=== PATIENT | female | born 1945 | race Caucasian/White ===

== ENCOUNTER 2024-02-21 09:28 | Inpatient (IN) | payer OTHER ==
--- OUTSIDE RECORDS SUMMARY | 2024-02-21 09:31 | XMS REPORT | Continuity of Care Document ---
Author Name Unknown Address 1200 [facility] [address] th[address] Address 1200 [facility]. 1 495 [place] [address] Care Team Providers Care Historiographer Name Role Phone [phone] Attending Clinician Unavailable LUDIN PEREZ Attending Clinician Unavailable LINDA BLANCA Attending Clinician Unavailable JAKE BRICENO Attending Clinician Unavailbrenton peralta [phone] Admitting Clinician Unavailable LUDIN PEREZ Admitting Clinician Unavailable LINDA BLANCA Admitting Clinician Unavailable JAKE BRICENO Admitting Clinician UnavailGIANLUCA Watt Admitting Clinician Unavailable JOSE MARIA LINN Admitting Clinician Unavailable Payers Payer Name Policy Type Policy Number Effective Date Expirati on Date Source [facility] [id number] [facility] [id number] Problems Condition Name Condition Details Condition Category Status Onset Date Resolution Date Last Treatment Date Treating Clinician Comments Source Obesity Obesity Diagnosis Active 2019-08 00:00: [address] [facility] (LUF/LI V/SA) Malaise Malaise Diagnosis Active 2019-08 00:00: [address] [facility] (LUF/LI V/SA) Cellulitis Cellulitis Diagnosis Active 2019-08 00:00: [address] [facility] (LUF/LI V/SA) Allergies, Adverse Reactions, Alerts Allergy Name Allergy Type Status Severity Reaction(s) Onset Date Inactive Date Treating Clinician Comments Source Sulfa(Acevedo lfonamid e Antibiot ics) DA Active Unknown [facility] (LUF/LI V/SA) IV Dye, Iodine Containi ng Contrast Media DA Active Unknown [facility] (LUF/LI V/SA) Social History Smoking Status Start Date Stop Date Source Never [facility] (LUF[facility]/SA) Medications Ordered Medication Name Filled Medication Name Start Date Stop Date Current Medication? Ordering Clinician Indication Dosage Frequency Signature (SIG) Comments Components Source cefdinir 300 MG Oral Capsule cefdinir 300 MG Oral Capsule Yes 300mg 2xD [facility] (LUF/LI V/SA) doxycycline doxycycline Yes 100mg 2xD [facility] (LUF/LI V/SA) Vital Signs Vital Name Observation Time Observation Value Comments Zahira calero Height 2020-07-28 15:55:00 152.4 CM Weight 2020-07-28 15:55:00 136.07 KG Pulse Rate 2020-07-28 17:20:00 79 /min [facility] S [facility] (LUF/RAY/SA) Respiratory Rate 2020-07-28 17:20:00 22 /min [facility] (F/RAY/SA) O2% BldC Oximetry 2020-07-28 17:20:00 95 % [facility] (F/RAY/SA) BP Systolic 2020-07-28 16:16:00 117 mm[Hg] [facility] (LUF/RAY/SA) BP Diastolic 2020-07-28 16:16:00 51 mm[Hg] [facility] (F/RAY/SA) Body Temperature 2020-07-28 15:55:00 97.1 [degF] [facility] (F/RAY/SA) Height 2020-07-28 15:55:00 60 [in_i] [facility] (F/RAY/SA) Weight 2020-07-28 15:55:00 300 [lb_av] [facility] (F/RAY/SA) BMI (Body Mass Index) 2020-07-28 15:55:00 58.8 kg/m2 [facility] (F/RAY/SA) Weight Measured 2017-11-21 11:53:00 375 lbs [facility] (F/RAY/SA) Body Temperature 2017-11-21 11:53:00 98.2 F [facility] (F/RAY/SA) Respiratory Rate 2017-11-21 11:53:00 26 /min [facility] (F/RAY/SA) O2% BldC Oximetry 2017-11-21 11:53:00 97 % [facility] (LUF/RAY/SA) BP Systolic 2017-11-21 11:53:00 120 mm[Hg] [facility] (LUF/RAY/SA) BP Diastolic 2017-11-21 11:53:00 81 mm[Hg] [facility] (LUF/RAY/SA) Weight Measured 2017-10-20 17:37:00 326.28 lbs [facility] (LUF/RAY/SA) Body Temperature 2017-10-20 17:35:00 98.9 F [facility] (LUF/RAY/SA) Respiratory Rate 2017-10-20 17:35:00 20 /min [facility] (LUF/RAY/SA) O2% BldC Oximetry 2017-10-20 17:35:00 98 % [facility] (LUF/RAY/SA) BP Systolic 2017-10-20 17:35:00 119 mm[Hg] [facility] (LUF/RAY/SA) BP Diastolic 2017-10-20 17:35:00 49 mm[Hg] [facility] (LUF/RAY/SA) Height 2017-10-20 17:35:00 63 in [facility] (LUF/RAY/SA) BMI (Body Mass Index) 2017-10-20 17:35:00 57.8 [facility] (LUF/RAY/SA) Encounters Start Date/Time End Date/Time Encounter Type Admission Type Attending [facility] Care Department Encounter ID Source 2021-09-03 11:17:09 Outpatient 3 [id number] [facility] [id number] [facility] [place] 2021-09-03 11:13:00 Outpatient 3 [id number] [facility] REF [id number] [facility] [place] 2020-07-28 15:47:00 2020-07-28 19:22:00 CELLULITIS OF RIGHT LOWER LIMB E LUDIN PEREZ [facility] N, [address], [facility] [place] [address] [facility] [id number] [facility] 2020-07-28 00:00:00 2020-07-28 00:00:00 Inpatient [facility] [place], [address], [place] [address] [facility] [id number] [facility] (LUF/LI V/SA) 2020-07-28 00:00:00 2020-07-28 00:00:00 Inpatient [facility] [place], [address], [place] [address] [facility] [id number] [facility] (LUF/LI V/SA) 2018-02-28 10:36:00 2018-02-28 23:59:00 ENC THERAPEUTC DRUG LEVL MONITORING O LINDA BLANCA [facility], [address] [place] [address] [facility] [id number] [facility] (LUF/LI V/SA) 2018-02-22 15:25:00 2018-02-22 23:59:00 ENC THERAPEUTC DRUG LEVL MONITORING O LINDA BLANCA [facility], [address] [place] [address] [facility] [id number] [facility] (LUF/LI V/SA) 2018-02-16 12:33:00 2018-02-16 23:59:00 ENC THERAPEUTC DRUG LEVL MONITORING O LINDA BLANCA [facility], [address] [place] [address] [facility] [id number] [facility] (LUF/LI V/SA) 2017-12-16 13:59:00 2017-12-16 23:59:00 PERS HX OTH VENOUS THROMBOSIS &EMBO O JAKE BRICENO [facility], [address] [facility] [place] [address] [facility] [id number] [facility] (LUF/LI V/SA) 2017-12-02 14:16:00 2017-12-02 23:59:00 ENC THERAPEUTC DRUG LEVL MONITORING O JAKE BRICENO [facility], [address] [place] [address] [facility] [id number] [facility] (LUF/LI V/SA) 2017-11-21 11:42:00 2017-11-21 14:50:00 COPD UNSPECIFIE D E GIANLUCA LACEY [facility], [address] [facility] [place] [place] [address] [facility] [id number] [facility] (LUF/LI V/SA) 2017-10-20 17:27:00 2017-10-20 23:00:00 SPRAIN UNS LIGAMENT LT ANKLE INIT E JOSE MARIA LINN [facility], [address] [facility] [place] [address] [facility] [id number] [facility] (LUF/LI V/SA) Results Test Description Test Time Test Comments Results Result Co mments [facility] CEPHEID [id number] 17:52:00* Test Item Value Reference Range Interpretation Comme nts FT (test code = COVID) Negative (qualifier value) The FIA Formula Eed SARS-CoV -2 reagent is for in vitro use under FDA Emergency Use Authorization only. For questions regarding your test results, please contact the Coronavirus Call Center at [phone]. IN-HOUSE TESTINGSouthwest Health CenterXR CHEST AP/PA 1 VIEW 2020-07-28 17:50:44 [facility] (LUF/RAY/SA)Name: SARAVANAN LAN : [id number] Sex: FEXAM: XR CHEST AP/PA 1 VIEWINDICATION: [id number]: DyspneaCOMPARISON: NoneFINDINGS:One frontal imageobtained.MEDICAL DEVICES: NoneLUNGS: Changes of mild pulmonary vascular congestion seen. No evidence ofpulmonary edema seen.PLEURA: No effusions or pneumothorax.HEART AND MEDIASTINUM: Moderate cardiomegaly is noted, partially from technique.BONES AND SOFT TISSUES: Intact. No focal osseous lesions.UPPER ABDOMEN: No free air.IMPRESSION:Moderate cardiomegaly is noted, partially from technique. Mild changes of mildpulmonary vascular congestion.This final report was electronically signed by Christo Borrero 07/28/2020 5:44 PMDictated By: CHRISTO BORRERODate: 07/28/2020 17:44[facility] [id number] 17:19:00* Test Item Value Reference Range Interpretation Comme nts Glucose (test code = GLU) 106 mg/dl 75-110 BUN (test code = BUN) 15.0 mg/dl 6.0-17.0 Creatinine (test code = CREA) 0.8 mg/dl 0.4-1.2 Sodium (test code = NA) 141 mmol/l 137-145 Potassium (test code = K) 3.8 mmol/l 3.5-5.0 Chloride (test code = CL) 108 mmol/l 98-107 H CO2 (test code = CO2) 29 mmol/l 22-30 Calcium (test code = CALC) 8.7 mg/dl 8.4-10.2 T Protein (test code = TP) 6.9 gm/dl 5.1-8.7 Albumin (test code = ALB) 3.1 gm/dl 3.5-4.6 L A/G Ratio (test code = AGRAT) 0.8 % 1.1-2.2 L AST (SGOT) (test code = AST) 26 U/L 11-36 ALT (SGPT) (test code = ALT) 23 U/L 11-40 Alkaline Phos (test code = ALKP) 152 U/L 47-114 H Total Bilirubin (test code = TBIL) 0.8 mg/dl 0.2-1.2 Globulin (test code = GLOBU) 3.8 gm/dl 2.3-3.5 H Calcium, Corrected (test code = CALCCORR) 9.4 mg/dl 8.4-10.2 Various formulas exist for corrected serum calcium results, each yielding different values. This corrected result was based on the formula: Corrected Calcium = SerumCalcium + [0.8 * ( 4 - SerumAlbumin)] EGFR if (test code = EGFRAA) >60 mL/min/1.73m\\ S\\2 EGFR if Non- (test code = EGFRNA) >60 mL/min/1.73m\\ S\\2 Estimated Glomerular Filtration Rate (eGFR) Reference Intervals Decision Points for 18 years and older and average body mass: >= 60 Does not exclude kidney disease. 30 - 59 Suggests moderate chronic kidney disease and indicates the need for further investigation including assessment of proteinuria and cardiovascular factors. < 30 Usually indicates a need for referral for assessment and management of chronic kidney failure. [facility] CenterTROPONIN-I [id number] 17:15:00* Test Item Value Reference Range Interpretation Comme nts Troponin-I (test code = TROP) <0.015 ng/ml 0.000-0.034 N The 99th Percent ile URL is 0.045 ng/mL for the Siemens [place] Troponin I. The Joint Society of Cardiology/[place] [employer] of [employer] (ESC/ACC) and the National Academy of Clinical Biochemistry Standards of Laboratory Practices (NACB) recommends that the diagnosis of AMI includes the presence of clinical history suggestive of Acute Coronary Syndrome (ACS) and a maximum concentration of cardiac troponin exceeding the 99th percentile of a normal reference population [upper reference limit (URL)] on at least one occasion during the first 24 hours after the clinical event. [facility] CenterPRO-BNP(B-Type Natriuretic Peptide)2020-07-28 17:15:00* Test Item Value Reference Range Interpretation Comme nts Pro-BNP(B-Peptide) (test cod e = PROBNP) 706 pg/ml 0-125 H [facility] WITH AUTO [id number] 16:58:00* Test Item Value Reference Range Interpretation Comme nts WBC (test code = WBC) 6.12 10\\S\\3/ul 4.80-10.80 RBC (test code = RBC) 4.27 10\\S\\6/ul 4.20-5.40 Hemoglobin (test code = HGB) 13.1 gm/dl 12.0-14.0 Hematocrit (test code = HCT) 41.0 % 37.0-47.0 MCV (test code = MCV) 96.0 fL 81.0-99.0 MCH (test code = MCH) 30.7 pg 27.0-31.0 MCHC (test code = MCHC) 32.0 gm/dl 33.0-37.0 L RDW (test code = RDWVC) 15.1 % 11.5-14.5 H Platelet (test code = PLT) 218 10\\S\\3/ul 130-400 MPV (test code = MPV) 9.8 fL 7.4-10.4 A NE% (test code = NE) 55.2 % 42.0-75.0 LY% (test code = LY) 31.5 % 13.0-42.0 MO% (test code = MO) 7.7 % 4.0-14.0 EO% (test code = EO) 5.1 % 1.0-5.0 H BA% (test code = BA) 0.3 % 0.0-3.0 IG% (test code = IG%) 0.2 % 0.0-0.4 [facility] AND [id number] 12:17:00* Test Item Value Reference Range Interpretation Comme nts Protime (test code = PT) 12.0 seconds 9.0-11.9 H INR (test code = INR) 1.2 0.9-1.1 H INR results are intended ONLY to monitor Oral Anticoagulant therapy in stablized patients. The INR Therapeutic Range is 2.0 - 3.0 Patients with a mechanical heart, the INR Range is 2.5 - 3.5 [facility] AND [id number] 15:53:00* Test Item Value Reference Range Interpretation Comme nts Protime (test code = PT) 32.3 seconds 9.0-11.9 H INR (test code = INR) 3.1 0.9-1.1 H INR results are intended ONLY to monitor Oral Anticoagulant therapy in stablized patients. The INR Therapeutic Range is 2.0 - 3.0 Patients with a mechanical heart, the INR Range is 2.5 - 3.5 [facility] AND [id number] 15:02:00* Test Item Value Reference Range Interpretation Comme nts Protime (test code = PT) 50.1 seconds 9.0-11.9 HH INR (test code = INR) 4.9 0.9-1.1 HH INR results are intended ONLY to monitor Oral Anticoagulant therapy in stablized patients. The INR Therapeutic Range is 2.0 - 3.0 Patients with a mechanical heart, the INR Range is 2.5 - 3.5 Critical values were called to [facility] by [id number] on 02/16/2018 15:02 PM. Results were read back by [facility]. [facility] AND [id number] 15:35:00* Test Item Value Reference Range Interpretation Comme nts Protime (test code = PT) 14.0 seconds 9.0-11.9 H INR (test code = INR) 1.4 0.9-1.1 H INR results are intended ONLY to monitor Oral Anticoagulant therapy in stablized patients. The INR Therapeutic Range is 2.0 - 3.0 Patients with a mechanical heart, the INR Range is 2.5 - 3.5 [facility] AND [id number] 16:08:00* Test Item Value Reference Range Interpretation Comme nts Protime (test code = PT) 19.8 seconds 9.0-11.9 H INR (test code = INR) 1.9 0.9-1.1 H INR results are intended ONLY to monitor Oral Anticoagulant therapy in stablized patients. The INR Therapeutic Range is 2.0 - 3.0 Patients with a mechanical heart, the INR Range is 2.5 - 3.5 [facility] CenterPTT2018-04-16 14:31:00* Test Item Value Reference Range Interpretation Comme nts aPTT (test code = PTT) 30.5 seconds 23.0-33.0 [address]LufkinPT AND [id number] 14:31:00* Test Item Value Reference Range Interpretation Comme nts Protime (test code = PT) 14.8 seconds 9.0-11.9 H INR (test code = INR) 1.4 0.9-1.1 H INR results are intended ONLY to monitor Oral Anticoagulant therapy in stablized patients. The INR Therapeutic Range is 2.0 - 3.0 Patients with a mechanical heart, the INR Range is 2.5 - 3.[address]-[id number] 12:53:00* Test Item Value Reference Range Interpretation Comme nts Glucose (test code = GLU) 124 mg/dl 75-110 H BUN (test code = BUN) 13.0 mg/dl 6.0-17.0 Creatinine (test code = CREA) 0.8 mg/dl 0.4-1.2 Sodium (test code = NA) 143 mmol/l 137-145 Potassium (test code = K) 3.9 mmol/l 3.5-5.0 Chloride (test code = CL) 100 mmol/l 98-107 CO2 (test code = CO2) 37 mmol/l 22-30 H Calcium (test code = CALC) 9.3 mg/dl 8.4-10.2 T Protein (test code = TP) 7.2 gm/dl 5.1-8.7 Albumin (test code = ALB) 3.9 gm/dl 3.5-4.6 A/G Ratio (test code = AGRAT) 1.2 % 1.1-2.2 AST (SGOT) (test code = AST) 26 U/L 11-36 ALT (SGPT) (test code = ALT) 28 U/L 11-40 Alkaline Phos (test code = ALKP) 99 U/L 47-114 Total Bilirubin (test code = TBIL) 0.9 mg/dl 0.2-1.2 Globulin (test code = GLOBU) 3.3 gm/dl 2.3-3.5 Calcium, Corrected (test code = CALCCORR) 9.4 mg/dl 8.4-10.2 Various formulas exist for corrected serum calcium results, each yielding different values. This corrected result was based on the formula: Corrected Calcium = SerumCalcium + [0.8 * ( 4 - SerumAlbumin)] EGFR if (test code = EGFRAA) >60 mL/min/1.73m\\ S\\2 EGFR if Non- (test code = EGFRNA) >60 mL/min/1.73m\\ S\\2 Estimated Glomerular Filtration Rate (eGFR) Reference Intervals Decision Points for 18 years and older and average body mass: >= 60 Does not exclude kidney disease. 30 - 59 Suggests moderate chronic kidney disease and indicates the need for further investigation including assessment of proteinuria and cardiovascular factors. < 30 Usually indicates a need for referral for assessment and management of chronic kidney failure. er [address] [place] [address]-LufkinXR CHEST AP/PA 1 [id number] 12:42:32er 18 Procedure: AP View ChestOrder date: 11/21/2017 12:03 PMOrdering Provider: PRINCESS Drummondinical Indication: sob, Shortness of breathComparison: CT of the chest on October 20, 2017Findings:Cardiomegaly.Streaky perihilar densities suggestive of mild volume overload/central vascularcongestion. No large pleural effusions or pneumothorax. Osseous structures arenonacute.No evidence of active tuberculosis.Impression:Cardiomegaly with mild volume overload/CHF.This final report was electronically signed by Dr Enriqueta Nicholas MD 11/21/201712:36 PMDictated By: ENRIQUETA NICHOLASDate: 11/21/2017 12:42[facility] WITH AUTO [id number] 12:24:00* Test Item Value Reference Range Interpretation Comme nts WBC (test code = WBC) 9.69 10\\S\\3/ul 4.80-10.80 RBC (test code = RBC) 3.46 10\\S\\6/ul 4.20-5.40 L Hemoglobin (test code = HGB) 10.4 gm/dl 12.0-14.0 L Hematocrit (test code = HCT) 34.5 % 37.0-47.0 L MCV (test code = MCV) 99.7 fL 81.0-99.0 H MCH (test code = MCH) 30.1 pg 27.0-31.0 MCHC (test code = MCHC) 30.1 gm/dl 33.0-37.0 L RDW (test code = RDWVC) 15.4 % 11.5-14.5 H Platelet (test code = PLT) 245 10\\S\\3/ul 130-400 MPV (test code = MPV) 9.2 fL 7.4-10.4 A "NOT MEASURED" RESULTS ARE DISPLAYED WHEN THE INSTRUMENT HAS A SUPPRESSED OR UNREPORTABLE RESULT. THIS WILL MOST OFTEN HAPPEN WITH THE MPV WHEN THERE IS AN ABNORMAL PLATELET DISTRIBUTION DUE TO A CRITICAL LOW VALUE OR PLATELET CLUMPING. THE RDW MAY BE SUPPRESSED IF THERE ARE MULTIPLE PEAKS PRESENT ON THE RBC HISTOGRAM. IN THIS CASE, A MANUAL REVIEW OF THE SLIDE WILL BE PERFORMED, AND RBC MORPHOLOGY WILL BE NOTED ON THE REPORT. NE% (test code = NE) 74.9 % 42.0-75.0 LY% (test code = LY) 14.1 % 13.0-42.0 MO% (test code = MO) 8.8 % 4.0-14.0 EO% (test code = EO) 1.3 % 1.0-3.0 BA% (test code = BA) 0.4 % 1.0-3.0 L IG% (test code = IG%) 0.5 % 0.0-0.4 H [address] [place] [address]-[facility], [id number] 06:14:00ER T2 ER T2 needs in and out cath for specimenSpecimen: Urine SpecimensCollected: 10/20/2017 21:15 Status: Final Last Updated: 10/23/2017 06:14 (1) ER T2 ER T2 needs in and out cath for specimen Culture Result (Final) (Final) >100,000 cc/mL Gram Negative Bacilli Isolate (Final) (Final) Escherichia coli Amoxicillin/clavu <=2 S Ampicillin<=2 S Aztreonam <=1 S Cefazolin <=4 S Cefepime <=1 S Ceftriaxone <=1 S Ciprofloxacin <=0.25 S Gentamicin <=1 S Imipenem <=0.25 S Levofloxacin 1 S Meropenem <=0.25 S Nitrofurantoin <=16 S Tetracycline <=1 S Trimeth/Sulfa <=20 S ESBL Negative -[facility]-LufkinURINALYSIS WITH MICROSCOPIC 2017-10-20 22:13:00* Test Item Value Reference Range Interpretation Comme nts Color (test code = UCOLR) YELLOW Clarity (test code = UCLAR) CLEAR Glucose (test code = UGLUC) NEGATIVE NEGATIVE N Bilirubin (test code = UBILI) NEGATIVE NEGATIVE N Ketones (test code = UKET) TRACE NEGATIVE A Specific [place] (test code = USPGR) 1.025 1.005-1.030 A Blood (test code = UBLD) TRACE-INTACT NEGATIVE A PH (test code = UPH) 6.0 4.5-8.0 A Protein (test code = UPROT) NEGATIVE NEGATIVE N Urobilinogen (test code = U UROB) 0.2 >0.2 N Nitrite (test code = UNITR) POSITIVE NEGATIVE A Leukocyte Esterase (test cod e = ULEUK) TRACE NEGATIVE A WBC (test code = WBCUR) 10-20 0-5 A RBC (test code = RBCUR) 0-1 0-5 A Epithial Cells (test code = U EPI) 0-5 0-10 A Mucous (test code = UMUC) None Seen None Seen N Bacteria (test code = UBACT) 3+ None Seen,Trace A ER T2 ER T2 needs in and out cath for [facility] AND [id number] 20:16:00* Test Item Value Reference Range Interpretation Comme nts Protime (test code = PT) 15.4 seconds 9.0-11.9 H INR (test code = INR) 1.5 0.9-1.1 H INR results are intended ONLY to monitor Oral Anticoagulant therapy in stablized patients. The INR Therapeutic Range is 2.0 - 3.0 Patients with a mechanical heart, the INR Range is 2.5 - 3.5 er [address]-03-15 20:16:00* Test Item Value Reference Range Interpretation Comme nts aPTT (test code = PTT) 29.1 seconds 23.0-33.[address]-[id number] 20:07:00* Test Item Value Reference Range Interpretation Comme nts Glucose (test code = GLU) 110 mg/dl 75-110 BUN (test code = BUN) 19.0 mg/dl 6.0-17.0 H Creatinine (test code = CREA) 1.0 mg/dl 0.4-1.2 Sodium (test code = NA) 144 mmol/l 137-145 Potassium (test code = K) 4.4 mmol/l 3.5-5.0 Chloride (test code = CL) 101 mmol/l 98-107 CO2 (test code = CO2) 39 mmol/l 22-30 H Calcium (test code = CALC) 9.1 mg/dl 8.4-10.2 T Protein (test code = TP) 6.7 gm/dl 5.1-8.7 Albumin (test code = ALB) 3.6 gm/dl 3.5-4.6 A/G Ratio (test code = AGRAT) 1.2 % 1.1-2.2 AST (SGOT) (test code = AST) 26 U/L 11-36 ALT (SGPT) (test code = ALT) 29 U/L 11-40 Alkaline Phos (test code = ALKP) 110 U/L 47-114 Total Bilirubin (test code = TBIL) 0.7 mg/dl 0.2-1.2 Globulin (test code = GLOBU) 3.1 gm/dl 2.3-3.5 Calcium, Corrected (test code = CALCCORR) 9.4 mg/dl 8.4-10.2 Various formulas exist for corrected serum calcium results, each yielding different values. This corrected result was based on the formula: Corrected Calcium = SerumCalcium + [0.8 * ( 4 - SerumAlbumin)] EGFR if (test code = EGFRAA) >60 mL/min/1.73m\\ S\\2 EGFR if Non- (test code = EGFRNA) 58 mL/min/1.73m\\ S\\2 Estimated Glomerular Filtration Rate (eGFR) Reference Intervals Decision Points for 18 years and older and average body mass: >= 60 Does not exclude kidney disease. 30 - 59 Suggests moderate chronic kidney disease and indicates the need for further investigation including assessment of proteinuria and cardiovascular factors. < 30 Usually indicates a need for referral for assessment and management of chronic kidney failure. [address]-[place]kinCBC WITH AUTO [id number] 19:58:00* Test Item Value Reference Range Interpretation Comme nts WBC (test code = WBC) 7.13 10\\S\\3/ul 4.80-10.80 RBC (test code = RBC) 3.43 10\\S\\6/ul 4.20-5.40 L Hemoglobin (test code = HGB) 10.4 gm/dl 12.0-14.0 L Hematocrit (test code = HCT) 33.7 % 37.0-47.0 L MCV (test code = MCV) 98.3 fL 81.0-99.0 MCH (test code = MCH) 30.3 pg 27.0-31.0 MCHC (test code = MCHC) 30.9 gm/dl 33.0-37.0 L RDW (test code = RDWVC) 15.3 % 11.5-14.5 H Platelet (test code = PLT) 250 10\\S\\3/ul 130-400 MPV (test code = MPV) 9.1 fL 7.4-10.4 A "NOT MEASURED" RESULTS ARE DISPLAYED WHEN THE INSTRUMENT HAS A SUPPRESSED OR UNREPORTABLE RESULT. THIS WILL MOST OFTEN HAPPEN WITH THE MPV WHEN THERE IS AN ABNORMAL PLATELET DISTRIBUTION DUE TO A CRITICAL LOW VALUE OR PLATELET CLUMPING. THE RDW MAY BE SUPPRESSED IF THERE ARE MULTIPLE PEAKS PRESENT ON THE RBC HISTOGRAM. IN THIS CASE, A MANUAL REVIEW OF THE SLIDE WILL BE PERFORMED, AND RBC MORPHOLOGY WILL BE NOTED ON THE REPORT. NE% (test code = NE) 61.8 % 42.0-75.0 LY% (test code = LY) 25.4 % 13.0-42.0 MO% (test code = MO) 10.0 % 4.0-14.0 EO% (test code = EO) 2.1 % 1.0-3.0 BA% (test code = BA) 0.4 % 1.0-3.0 L IG% (test code = IG%) 0.3 % 0.0-0.[address]-[id number] 19:58:00* Test Item Value Reference Range Interpretation Comme nts CPK (test code = CPK) 70 U/L 30-[address]/PELVIS W/O [id number] 19:57:57er t-2Procedure: CT ABDOMEN/PELVIS W/O CONTRASTOrder Date: 10/20/2017 4:17 PMOrdering Provider: DR JOSE MARIA LINNClinical Indication: Fall, injury, painComparison: NoneTechnique: Using a helical scanner, sequential axial imaging of the abdomen andpelvis was obtained without the administration of oral or IV contrast. The examextended from the level of the lung bases superiorly to the level of the pubicsymphysis inferiorly. 2-D sagittal and coronal reconstructed images wereobtained. This exam was performed according to the departmentaldose- optimization program which includes automated exposure control, adjustmentof the mA and/or kV according to patient size and/or use of iterativereconstruction techniques.Findings:The lung bases are clear. No basilar consolidation or effusion.Diffuse hepatic steatosis. Hepatic contour is normal. There are no hepaticmasses. No intrahepatic ductal dilatation.The gallbladder is normal in size and density. There is no evidence ofcholelithiasis or cholecystitis by CT criteria.The spleen is normal in size and density. There are no intrinsic splenic masses.There isno evidence of a subcapsular hematoma or fluid collection.The pancreas is normal in size and density. There are no pancreaticcalcifications or masses. There is no pancreatic ductal dilatation.The adrenal glands are normal in size bilaterally.There are no adrenal masses bilaterally.The right kidney is normal in size and shape.There are no calculi, masses, or hydronephrosis.The left kidney is normal in size and shape.There are no calculi, masses, or hydronephrosis.Aorta is normal in size and diameter. There is no aneurysm.The IVC is normal in size and location.There is no lymphadenopathy in theabdomen, pelvis, or either inguinal region.Extensive soft tissue stranding in the subcutaneous tissues of the abdomen andpelvis which extends above the level of umbilicus and involves the central andright abdominal wall. This could represent subcutaneous hemorrhage orpanniculitis. There are numerous superficial venous collateral vessels in theabdominal wall.Small periumbilical abdominal wall hernia which contains a loop of small bowel.There is no intraperitoneal or retroperitoneal hematoma.No fluid collections in the abdomen or pelvis.No ascites in the abdomen or pelvis.There is no small or large bowel distention. There is no bowel thickening. Thereare no inflammatory changes in the abdomenor pelvis.The appendix is not visualized.Urinary bladder has a normal appearance.The uterus is normal in size.No inguinal masses.There is no skeletal lesion.IMPRESSION:1. Extensive subcutaneous soft tissue stranding in the anterior abdominal andpelvic wall. This involves the central and right side of the abdominal wall.This could represent subcutaneous hemorrhage or panniculitis. There is no focalhematoma or loculated fluid collection.2. No intraperitoneal or retroperitoneal hemorrhage.3. No visceral organ injury.4. Diffuse hepatic steatosis.5. Small periumbilical hernia which includes a loopof small bowel. There is nobowel obstruction.6. No displaced fracture.7. No other significant findings.This final report was electronically signed by Dr Damian Chauhan MD 10/20/20177:51 PMDictated By: DAMIAN CHAUHANDate: 10/20/2017 19:57 [facility] CHEST W/O [id number] 19:48:26er t-2Procedure: CT CHEST W/O CONTRASTOrder Date: 10/20/2017 4:16 PMOrdering Provider: DR JOSE MARIA Leyinical Indication: Fall, injury, painComparison: NoneTechnique: Using a multislice scanner, sequential axial imaging was obtained inthe thorax from the level of the thoracic inlet through the lung bases. The examwas obtained without the administration of IV contrast. 2D sagittal and coronalreconstructed images were obtained. This exam was performed according to thedepartmental dose- optimization program which includes automated exposurecontrol, adjustment of the mA and/or kV according to patient size and/or use ofiterative reconstruction techniques.FINDINGS:Cardiac size is normal.There is no pericardial effusion.Evaluation of vascular structures is limited without intravenous contrast.Thoracic aorta is of normal diameter.There is no supraclavicular or axillary lymphadenopathy.There is no mediastinal, hilar, or subcarinal lymphadenopathy.There are no pulmonary masses or nodules.There is noalveolar or interstitial infiltrate.There are no pleural effusions.No acute fracture.Multilevel degenerative disc disease in the thoracic spine.Thoracic dextroscoliosis.IMPRESSION1. No acute abnormality in the chest.This final report was electronically signed by Dr Damian Chauhan MD 10/20/20177:42 PMDictated By: DAMIAN CHAUHANDate: 10/20/2017 19:48[facility] RAPID [id number] 19:48:00* Test Item Value Reference Range Interpretation Comme nts B-PEPTIDE (BIOSITE) (test co de = BIOBNP) 95.2 pg/ml 0.0-100.0 SERIAL INSTRUMENT NUMBER (te st code = SERIAL) [id number] [facility] [id number] 19:48:00* Test Item Value Reference Range Interpretation Comme nts CKMB (BIOSITE) (test code = BIOCKMB) 2.1 ng/ml 0.0-2.5 TROPONIN-I (BIOSITE) (test c ode = BIOTROP) <0.050 ng/ml 0.000-0.050 N MYOGLOBIN (BIOSITE) (test co de = BIOMYO) 165.0 ng/ml 0.0-170.0 SERIAL INSTRUMENT NUMBER (te st code = SERIAL) [id number] [facility] KNEE 1-2 [id number] 19:44:36er t-2Procedure: XR KNEE 1-2 VWSOrder Date: 10/20/2017 4:18 PMOrdering Provider: DR JOSE MARIA LeyinicalIndication: Fall, injury, painComparison: NoneFINDINGS:There is no fracture or dislocation.There ispreservation of the medial tibiofemoral compartment with mildperiarticular osteophyte formation.There is preservation of the lateral tibiofemoral compartment with mildperiarticular osteophyte formatio n.There is preservation of the patellofemoral compartment with mild periarticularosteophyte formation.No lytic or sclerotic lesions.No joint effusion.No subcutaneous gas.IMPRESSION:1. No acute abnormality.2. Mild, multicompartment osteoarthritis of the right knee.3. Exam otherwise negative.This final report was electronically signed by Dr Damian Chauhan MD 10/20/20177:38 PMDictated By: DAMIAN CHAUHANDate: 10/20/2017 19:44[facility] KNEE 1-2 [id number] 19:43:36er t-2Procedure: XR KNEE 1-2 VWSOrder Date: 10/20/2017 4:19 PMOrdering Provider: DR JOSE MARIA LeyinicalIndication: Fall, injury, painComparison: NoneFINDINGS:There is no fracture or dislocation.There ispreservation of the medial tibiofemoral compartment with mildperiarticular osteophyte formation.There is preservation of the lateral tibiofemoral compartment with mildperiarticular osteophyte formation.There is preservation of the patellofemoral compartment with mild periarticularosteophyte formation.No lytic or sclerotic lesions.No joint effusion.No subcutaneous gas.IMPRESSION:1. No acute abnormality.2. Mild, multicompartment osteoarthritis of the left knee.3. Exam otherwise negative.This final report was electronically signed by Dr Damian Chauhan MD 10/20/20177:37 PMDictated By: AMY CHAUHAN.Date: 10/20/2017 19:43[facility] CERVICAL SPINE W/O [id number] 19:39:25er t-2Procedure: CT CERVICAL SPINE W/O CONTRASTOrder Date: 10/20/2017 4:16 PMOrdering Provider: DR JOSE MARIA Leyinical Indication: Fall, injury, painComparison: NoneTechnique: Using a multislice scanner,sequential axial imaging was obtainedfrom the skull base to the T1 level. 2-D sagittal and coronal reconstructionimages were obtained. Exam was reconstructed at 2 mm. slice thickness.This exam was performed according to the departmental dose- optimization programwhich includes automated exposure control, adjustment of the mA and/or kVaccording to patient size and/or use of iterative reconstruction techniques.Findings:There is no acute fracture.Sagittal and coronal alignment is normal.There is multilevel intervertebral disc space narrowing and endplate osteophyteformation.There is multilevel facet arthropathy.No significant osseous spinal canal narrowing.Multilevel neural foraminal narrowing.There is no lytic or sclerotic lesion.The prevertebral soft tissues are normal.IMPRESSION:1. No acute fracture or significant subluxation.2. Multilevel degenerative disc disease and facet arthrosis ofthe cervicalspine.3. Multilevel neural foraminal narrowing.4. No other significant findings.This final report was electronically signed by Dr Damian Chauhan MD 10/20/20177:33 PMDictated By: DAMIAN CHAUHANDate: 10/20/2017 19:39[facility] FOOT COMP MIN 3 [id number] 19:35:45er t-2 Procedure: XR FOOT COMP MIN 3 VWOrder Date: 10/20/2017 4:19 PMOrdering Provider: DR JOSE MARIA Leyinical Indication: Fall, injury, painComparison: NoneFINDINGS:No fracture or dislocation.Mild arthrosis of several PIP and DIP joints of the left foot.Articular surfaces of the left foot are otherwise normal.Small calcaneal enthesophytes.Visualized portions of the hindfoot and midfoot are otherwise normal.No lytic or sclerotic lesions.No radiopaque foreign body.No subcutaneous gas evident.IMPRESSION:1. No acute abnormality involving the left foot.2. Mild arthrosis of several PIP and DIP joints of the left foot.3. Small calcaneal enthesophytes.4. Exam otherwise negative.This final report was electronically signed by Dr Damian Chauhan MD 10/20/20177:29 PMDictated By: DAMIAN CHAUHAN.Date: 10/20/2017 19:35[facility] HEAD W/O CONTRAST 2017-10-20 19:32:45er t-2Procedure: CT HEAD W/O CONTRASTOrder Date: 10/20/2017 4:16 PMOrdering Provider: DR JOSE MARIA Leyinical Indication: Fall, injury, painComparison: NoneTechnique: Using a helical scanner, sequential axial imaging of the brain wasobtained without the administration of intravenous contrast. The exam wasobtained from the skull base to vertex. This exam was performed according to thedepartmental dose-optimization program which includes automated exposurecontrol, adjustment of the mA and/or kV according to patient size and/or use ofiterative reconstruction techniques.Findings:Ventricular size is nor mal.There is no midline shift or hydrocephalus.No acute intracranial hemorrhage.No acute infarction.Cortical babin matter has a normal appearance.There is diffuse periventricular hypodensity consistent with mild chronicmicrovascular ischemic change.The calvarium is intact. There is no fracture. There is no lytic or scleroticlesion.The visualized paranasal sinuses and mastoid air cells are clear.IMPRESSION:1. No acute intracranial abnormality.2. Mild chronic microvascular ischemic change in the periventricular whitematter bilaterally.3. CT scan of the brain without IV contrast is otherwise negative.This final report was electronically signed by Dr Damian Chauhan MD 10/20/20177:26 PMDictated By:DAMIAN CHAUHANDate: 10/20/2017 19:32[facility] ANKLE COMP MIN 3 [id number] 19:28:24er t-2Procedure: XR ANKLE COMP MIN 3 VIEWSOrder Date: 10/20/2017 4:19 PMOrdering Provider: DR JOSE MARIA FERGUSON XClinical Indication: pain all overComparison: NoneFINDINGS:No acute fracture or subluxation.The articular surface of the left ankle has a normal appearance.The talus and calcaneus have a normal appearance.The visualized portions of the mid foot and forefoot are normal.No joint effusion.No significant soft-tissue swelling.No subcutaneous gas evident.No radiopaque foreign body.IMPRESSION:1. Negative exam of the left ankle.This final report was electronically signed by Dr Damian Chauhan MD 10/20/20177:22 PMDictated By: DAMIAN CHAUHAN.Date: 10/20/2017 19:28[facility] [id number] 16:47:00* Test Item Value Reference Range Interpretation Comme nts Protime (test code = PT) 10.0 seconds 9.0-11.9 INR (test code = INR) 1.0 0.9-1.1 INR results are intended ONLY to monitor Oral Anticoagulant therapy in stablized patients. The INR Therapeutic Range is 2.0 - 3.0 Patients with a mechanical heart, the INR Range is 2.5 - 3.5 [facility] Notes Date/Time Note Provider Source 2017-10-20 23:00:00 [id number] 23-10-14T23:00:00Discharge Instructions 2Discharge Diagnosiscontusions/UTIImportant InformationConsult your physician or return to the Emergency Department immediately if worse, if not better as expected, or if any problems arise.Follow Up CareYesImportant InformationPlease understand that you have received care only on an emergency basis. If your condition does not improve, you should call your personal physician for follow-up care. If you do not have a physician, you may call the referred physician listed.Follow Up CareScheduled Appointment for OP Cardiac Stress TestImportant InformationIf you have questions about your care or these discharge instructions, you may call the Emergency Department. Please take your discharge paperwork with you to any follow-up appointments.Follow-Up With:Primary Care PhysicianActivity LevelStay in BedDietRegularPrescriptions Given Via:EMS left DC instructions and Rx at bedside. Macrobid called in to [facility] pharmacy and notified daughter of Rx.Printed and given to patient/caregiver.Patient TeachingPatient education providedDischarge InstructionsDischarge InstructionsDischarge Instructions 2017-10-20 (Encounter: [id number] for patient careSTLMThe Hospitals of [facility] ([facility])[id number]:17:46 [facility] ([facility])
--- NOTE | 2024-02-21 10:05 | RAD REPORT ---
EXAM DESCRIPTION: CT - Head Brain Wo Cont - 02/21/2024 9:58 am CLINICAL HISTORY: MENTAL STATUS CHANGE Headache, drowsiness COMPARISON: No comparisons TECHNIQUE: All CT scans are performed using dose optimization technique as appropriate and may inclu de automated exposure control or mA/KV adjustment according to patient size. FINDINGS: No intracranial hemorrhage, hydrocephalus or extra-axial fluid collection.Moderate general ized brain atrophy is present with moderate periventricular and deep white matter chronic microvascul ar ischemic changes.No areas of brain edema or evidence of midline shift. The paranasal sinuses and mastoids are clear. The calvarium is intact. IMPRESSION: No acute intracranial abnormality.
--- NOTE | 2024-02-21 10:19 | RAD REPORT ---
EXAM DESCRIPTION: RAD - Chest Single View - 02/21/2024 10:09 am CLINICAL HISTORY: AMS Chest pain. COMPARISON: No comparisons FINDINGS: Portable technique limits examination quality. The lungs are grossly clear. Moderate cardiomegaly with dual lead pacer device present. No displaced fractures. IMPRESSION: No acute intrathoracic process suspected.
[2024-02-21 10:44] LABS: Arterial Blood Carboxyhemoglob 0.7 % (0-1.5); Blood Gas Oxyhemoglobin 88.5 % (94-97); Blood Gas THB 11.4 g/dl (12-18); Blood O2 Saturation 91.2 % (92-98.5)
[2024-02-21 11:08] LABS: Absolute Eosinophils 0.1 K/uL (0-0.5); Absolute Lymphocytes (CBC) 1.2 K/uL (0.7-4.9); Absolute Monocytes 0.9 K/uL (0.1-1.3); Absolute Neutrophil 3.4 K/uL (1.8-8.0); Basophils % 0.5 % (0-1.3); Eosinophils % 2.6 % (0-4.4); Hematocrit 33.6 % (36.0-45.0); Hemoglobin 10.9 g/dL (12.0-15.0); Lymphocytes % 21.2 % (15.3-44.8); MCH 31.7 pg (27.0-35.0); MCHC 32.3 g/dL (32.0-36.0); MPV 7.8 fL (7.6-11.3); Monocytes % 15.3 % (3.3-12.3); Neutrophils % 60.4 % (41.7-73.7); Platelets 161 thou/uL (152-406); RBC Red Blood Cell Count 3.43 M/uL (3.86-4.86); Red Cell Distribution Width 15.2 % (12.1-15.2)
[2024-02-21 11:15] LABS: PT Prothrombin Time 19.6 SECONDS (9.4-12.5); PTT, Activated Partial Thromb 39.6 SECONDS (24.3-36.9); Protime INR 1.78
[2024-02-21 11:25] LABS: SARS-CoV-2 Antigen CONTROL BLUE LINE VIS/BG OK; SARS-CoV-2 Antigen Rapid Res Negative (Negative)
[2024-02-21 11:28] LABS: Albumin 2.9 g/dL (3.4-5.0); Albumin/Globulin Ratio 0.9 (1.1-1.8); Anion Gap 11.4 mEq/L (5.0-15.0); Bilirubin Total 0.9 mg/dL (0.2-1.0); Globulin 3.3 g/dL (2.3-3.5); Potassium 4.4 mEq/L (3.5-5.1); Protein, Total 6.2 g/dL (6.4-8.2); Troponin High Sensitivity 14.2 pg/mL (<58.9)
[2024-02-21 12:04] LABS: Specific Gravity 1.019 (1.005-1.030); Sqamous Epithelial 20-50 /HPF (None Seen); Urine Bacteria >50 /HPF (<20); Urine Bilirubin 1+ (Negative); Urine Blood Negative (Negative); Urine Clarity Extremely Turbid (Clear); Urine Color Yellow (Yellow); Urine Culture Reflex Order NOT NEEDED; Urine Glucose NEGATIVE (Negative); Urine Ketones TRACE (Negative); Urine Microscopic Reflex YN ORDER UMIC; Urine Mucus 1+ /HPF (None Seen); Urine Nitrite NEGATIVE (Negative); Urine Protein TRACE (Negative); Urine RBC <5 /HPF (None Seen); Urine Urobilinogen 1+ (Normal)
--- NOTE | 2024-02-21 12:11 | ER ---
Nurse's Notes [facility] Name: Stella Boston Age: 78 yrs Sex: Female : 1945 Arrival Date: 02/21/2024 Time: 09:28 Bed 16 Private MD: Diagnosis: Altered mental status, UTI Presentation: 02/20 09:31 Chief complaint: EMS states: [employer] toned out EMS for altered mental rs5 status. Pt not alert, oriented, or answering questions as she normally does. Coronavirus screen: At this time, the client does not indicate any symptoms associated with coronavirus-19. Ebola Screen: No symptoms or risks identified at this time. Initial Sepsis Screen: Does the patient meet any 2 criteria? No. Patient's initial sepsis screen is negative. Does the patient have a suspected source of infection? No. Patient's initial sepsis screen is negative. Risk Assessment: Do you want to hurt yourself or someone else? Patient reports no desire to harm self or others. Onset of symptoms was February 21, 2024. 09:31 Method Of Arrival: EMS: [facility] rs5 09:31 Acuity: AMANDEEP 3 rs5 Historical: - Allergies: 09:37 Iodine; rs5 09:37 Sulfa (Sulfonamide Antibiotics); rs5 09:37 Tositumomab Analogues; rs5 - PMHx: 09:37 Anemia; Anxiety; Asthma; Atrial fibrillation; Chronic Diastolic CHF; Chronic rs5 obstructive lung disease; CKD stage 3; Dementia; GERD; Hypothyroidism; insomnia; Hypokalemia; Major Depressive Disorder; Presbyopia; Alzheimer's disease; vitamin d deficiency; - PSHx: 09:37 Intraocular Lens; Cardiac Pacemaker; rs5 - Immunization history:: Adult Immunizations up to date. - Infectious Disease History:: Denies. - Social history:: Smoking status: Patient/guardian denies using tobacco. Screenin:46 [facility] ED Fall Risk Assessment (Adult) History of falling in the last 3 months, kj2 including since admission Yes- single mechanical fall (1 pt) Confusion or Disorientation Yes (5 pts) Intoxicated or Sedated No (0 pts) Impaired Gait Yes (1 pt) Mobility Assist Device Used Yes (1 pt) Altered Elimination No (0 pt) Score/Fall Risk Level 3 or more points = High Risk Maintained a safe environment, Assessed \T\ reinforced patient's understanding of fall precautions, Hourly rounding (assess needs \T\ fall precautionary measures) done. 10:47 Abuse screen: Denies threats or abuse. Denies injuries from another. Nutritional kj2 screening: No deficits noted. Tuberculosis screening: No symptoms or risk factors identified. Assessment: 09:33 General: Appears in no apparent distress. uncomfortable, Behavior is calm, cooperative. rs5 Pain: Unable to use pain scale. Patient is disoriented. Neuro: Level of Consciousness is awake, alert, confused, Oriented to none. Cardiovascular: Patient's skin is warm and dry. Respiratory: Airway is patent Respiratory effort is even, unlabored, Respiratory pattern is regular, symmetrical. Respiratory: GI: Abdomen is round non-distended, Abd is soft and non tender X 4 quads. : No signs and/or symptoms were reported regarding the genitourinary system. EENT: No signs and/or symptoms were reported regarding the EENT system. Derm: Skin is intact, Skin is pink, warm \T\ dry. Musculoskeletal: Range of motion: intact in all extremities. 10:38 Reassessment: No changes from previously documented assessment. rs5 12:01 Reassessment: Patient and/or family updated on plan of care and expected duration. Pain rs5 level reassessed. pillow provided to pt. 13:00 Reassessment: To bedside for urinary catheter insertion with tech. 16 ff Arreaga inserted rs5 using aseptic technique per MD orders, pt tolerated procedure well. 13:00 Reassessment: No changes from previously documented assessment. rs5 14:01 Reassessment: Patient and/or family updated on plan of care and expected duration. Pain rs5 level reassessed. 14:01 Neuro: Level of Consciousness is awake, alert, confused, Oriented to none. rs5 14:37 Reassessment: No changes from previously documented assessment. rs5 15:50 Reassessment: Patient and/or family updated on plan of care and expected duration. Pain rs5 level reassessed. Patient is alert, oriented x 3, equal unlabored respirations, skin warm/dry/pink. Vital Signs: 09:31 BP 110 / 67; Pulse 60; Resp 17; Temp 97.8(O); Pulse Ox 96% on 3 lpm NC; rs5 10:19 BP 146 / 91; Pulse 62; Resp 20; Temp 97.5(O); Pulse Ox 91% on 3 lpm NC; kj2 13:04 BP 127 / 77; Pulse 69; Resp 17; Pulse Ox 98% on 2 lpm NC; rs5 15:50 BP 118 / 79; Pulse 72; Resp 17; Pulse Ox 97% on 2 lpm NC; rs5 ED Course: 09:31 Patient arrived in ED. rs5 09:31 Lux Garcia MD is Attending Physician. sp3 09:37 Triage completed. rs5 09:38 Price Linder, RN is Primary Nurse. rs5 09:41 Inserted saline lock: 22 gauge in left ,using aseptic technique. breast. rs5 09:59 CT Head Brain wo Cont In Process Unspecified. EDMS 10:10 Chest Single View XRAY In Process Unspecified. EDMS 10:43 Patient has correct armband on for positive identification. Placed in gown. Side rails kj2 up X 1. Provided Education on: call light, fall precautions. 10:47 Arm band placed on left wrist. kj2 12:10 Bhumi Mills MD is Hospitalizing Provider. sp3 14:37 No provider procedures requiring assistance completed. rs5 15:54 IV discontinued, intact, bleeding controlled, No redness/swelling at site. Pressure rs5 dressing applied. Administered Medications: 12:32 Drug: Rocephin IV 1 grams IV at calculated rate once; Given slow IV push per pharmacy rs5 instructions Route: IV; Rate: calculated rate; Site: left forearm; 12:45 Follow up: Response: No adverse reaction rs5 Medication: 10:47 VIS not applicable for this client. kj2 Outcome: 12:10 Decision to Hospitalize by Provider. sp3 15:54 Discharged to home ambulatory, rs5 15:54 Condition: stable 15:54 Discharge instructions given to patient, family, Instructed on discharge instructions, follow up and referral plans. Demonstrated understanding of instructions, follow-up care, 15:55 Patient left the ED. rs5 Signatures: Dispatcher [employer] EDMS Lux Garcia MD MD sp3 Price Linder, RN RN rs5 Anastasiya Novoa RN RN kj2 Corrections: (The following items were deleted from the chart) 13:03 10:22 General: Appears uncomfortable, Behavior is appropriate for age, kj2 rs5 13:03 10:22 Pain: Complains of pain in right arm Also complains of kj2 rs5 13:03 10:40 Neuro: Level of Consciousness is awake, confused, Oriented to person, kj2 rs5 13:03 10:40 Cardiovascular: Patient's skin is warm and dry. kj2 rs5 13:03 10:40 Respiratory: Airway is patent Respiratory effort is labored, kj2 rs5 13:03 10:40 : Urine is kj2 rs5 14:38 14:01 Reassessment: Patient and/or family updated on plan of care and expected rs5 duration. Pain level reassessed. rs5 18:31 14:38 BP 118 / 79; Pulse 72bpm; Resp 17bpm; Pulse Ox 97% 2 lpm Nasal Cannula; rs5 rs5 18:31 16:01 Reassessment: Patient and/or family updated on plan of care and expected rs5 duration. Pain level reassessed. Patient is alert, oriented x 3, equal unlabored respirations, skin warm/dry/pink. rs5
--- NOTE | 2024-02-21 12:11 | EDPHYS ---
Physician Documentation [facility] Name: Stella Boston Age: 78 yrs Sex: Female : 1945 Arrival Date: 02/21/2024 Time: 09:28 Bed 16 Private MD: ED Physician Lux Garcia HPI: 02/20 09:43 This 78 yrs old Female presents to ER via EMS with complaints of Altered Mental Status. 3 09:43 78-year-old female history of atrial fibrillation, CHF, COPD, anemia presents from [facility] for altered mental status. Patient was seen yesterday for mechanical fall and foot pain which she was discharged after x-rays of the lower extremity and pelvis. Today she presents sent by them for decreased mental status and alertness. No new trauma reported. Limited ROS, history and physical secondary to mental status change and underlying dementia.. Historical: - Allergies: 09:37 Iodine; rs5 09:37 Sulfa (Sulfonamide Antibiotics); rs5 09:37 Tositumomab Analogues; rs5 - PMHx: 09:37 Anemia; Anxiety; Asthma; Atrial fibrillation; Chronic Diastolic CHF; Chronic rs5 obstructive lung disease; CKD stage 3; Dementia; GERD; Hypothyroidism; insomnia; Hypokalemia; Major Depressive Disorder; Presbyopia; Alzheimer's disease; vitamin d deficiency; - PSHx: 09:37 Intraocular Lens; Cardiac Pacemaker; rs5 - Immunization history:: Adult Immunizations up to date. - Infectious Disease History:: Denies. - Social history:: Smoking status: Patient/guardian denies using tobacco. ROS: 09:44 Unable to obtain ROS due to altered mental status, baseline dementia, sp3 Exam: 09:44 Constitutional: The patient appears Patient awakes to painful stimuli and localizes sp3 pain. She does not spontaneously open her eyes. Ecchymoses noted right hand. Abdomen is soft. Vital signs are normal. Body habitus limits exam further on top of mental status change and dementia. 09:44 Unable to obtain exam due to altered mental status, baseline dementia, Vital Signs: 09:31 BP 110 / 67; Pulse 60; Resp 17; Temp 97.8(O); Pulse Ox 96% on 3 lpm NC; rs5 10:19 BP 146 / 91; Pulse 62; Resp 20; Temp 97.5(O); Pulse Ox 91% on 3 lpm NC; kj2 13:04 BP 127 / 77; Pulse 69; Resp 17; Pulse Ox 98% on 2 lpm NC; rs5 15:50 BP 118 / 79; Pulse 72; Resp 17; Pulse Ox 97% on 2 lpm NC; rs5 MDM: 09:31 Patient medically screened. sp3 09:45 Data reviewed: vital signs, nurses notes, care home records, old medical records, sp3 lab test result(s), EKG, radiologic studies. ED course: 78-year-old female with altered mental status with 24-hour return after trauma yesterday. Differential diagnosis includes trauma related injury, electrolyte abnormality, infection, UTI, pneumonia, sepsis, influenza, other viral illness, among others. Will obtain CT scan of the head, chest x-ray, swabs, labs, urine, and general supportive care. Disposition probable admission with further indicated medications as required.. 12:06 ED course: Urinalysis demonstrates infection. Patient slightly more awake. CT scan of sp3 the head negative. We will place in 23 observation for IV antibiotics and further care per inpatient team.. 02/20 09:41 Order name: Blood Culture Adult (2) sp3 02/20 09:41 Order name: CBC with Diff; Complete Time: 11:15 sp3 02/20 09:41 Order name: CMP; Complete Time: 12:04 sp3 02/20 09:41 Order name: Lactate w/ 2H reflex if indic.; Complete Time: 12:04 3 02/20 09:41 Order name: Protime (+inr); Complete Time: 11:15 sp3 02/20 09:41 Order name: Ptt, Activated; Complete Time: 11:15 sp3 02/20 09:41 Order name: Urinalysis w/ reflexes; Complete Time: 12:05 sp3 02/20 09:41 Order name: ABG: VBG; Complete Time: 11:00 sp3 02/20 09:41 Order name: Troponin High Sensitivity; Complete Time: 12:04 sp3 02/20 09:46 Order name: Flu; Complete Time: 12:04 sp3 02/20 09:46 Order name: SARS RAPID; Complete Time: 12:04 3 02/20 12:52 Order name: Urine Culture la1 02/20 13:57 Order name: Valproic Acid (Depakene) Level EDMS 02/20 13:57 Order name: NT PRO-BNP EDMS 02/20 13:57 Order name: T4 Free EDMS 02/20 13:57 Order name: Thyroid Stimulating Hormone EDMS 02/20 13:57 Order name: CBC with Automated Diff EDMS 02/20 13:57 Order name: CBC with Automated Diff EDMS 02/20 13:57 Order name: CBC with Automated Diff EDMS 02/20 13:57 Order name: CBC with Automated Diff EDMS 02/20 13:57 Order name: Comprehensive Metabolic Panel EDMS 02/20 13:57 Order name: Comprehensive Metabolic Panel EDMS 02/20 13:57 Order name: Comprehensive Metabolic Panel EDMS 02/20 13:57 Order name: Comprehensive Metabolic Panel EDMS 02/20 13:57 Order name: Lipid Profile EDMS 02/20 13:57 Order name: Lipid Profile EDMS 02/20 13:57 Order name: Magnesium EDMS 02/20 13:57 Order name: Magnesium EDMS 02/20 13:57 Order name: Magnesium EDMS 02/20 13:57 Order name: Magnesium EDMS 02/20 13:57 Order name: Phosphorus EDMS 02/20 13:57 Order name: Phosphorus EDMS 02/20 13:57 Order name: Phosphorus EDMS 02/20 13:57 Order name: Phosphorus EDMS 02/20 09:41 Order name: Chest Single View XRAY; Complete Time: 10:23 sp3 02/20 09:41 Order name: CT Head Brain wo Cont; Complete Time: 10:23 sp3 02/20 09:41 Order name: EKG; Complete Time: 09:42 sp3 02/20 13:57 Order name: Physical Therapy Consult EDMS 02/20 13:57 Order name: Patient Safety Orders EDMS 02/20 13:57 Order name: Dietitian Consult EDMS 02/20 13:57 Order name: Occupational Therapy Consult EDMS 02/20 13:57 Order name: Speech Therapy Consult EDMS 02/20 09:41 Order name: Cardiac monitoring; Complete Time: 11:35 sp3 02/20 09:41 Order name: EKG - Nurse/Tech; Complete Time: 11:35 sp3 02/20 09:41 Order name: IV Saline Lock - Large Bore; Complete Time: 11:35 sp3 02/20 09:41 Order name: Labs collected and sent; Complete Time: 11:35 sp3 02/20 09:41 Order name: O2 Per Protocol; Complete Time: 11:35 sp3 02/20 09:41 Order name: O2 Sat Monitoring; Complete Time: 11:35 sp3 02/20 09:41 Order name: Vital Signs; Complete Time: 11:35 sp3 02/20 12:52 Order name: Cath; Complete Time: 13:00 la1 Administered Medications: 12:32 Drug: Rocephin IV 1 grams IV at calculated rate once; Given slow IV push per pharmacy rs5 instructions Route: IV; Rate: calculated rate; Site: left forearm; 12:45 Follow up: Response: No adverse reaction rs5 Disposition Summary: 02/21/24 12:10 Hospitalization Ordered Notes: Hospitalization Status: Observation sp3 Provider: Bhumi Mills3 Location: Telemetry/MedSurg (observation) sp3 Condition: Stable sp3 Problem: an acute exacerbation sp3 Symptoms: have worsened sp3 Bed/Room Type: Standard sp3 Room Assignment: 427(02/21/24 15:00) eb Diagnosis - Altered mental status, UTI sp3 Forms: - Medication Reconciliation Form sp3 - SBAR form sp3 - Leadership Thank You Letter sp3 Signatures: Dispatcher [employer] EDMS Sanford Askew FNP-Sondra SALES REPRESENTATIVE TRAINEE-Cla1 Karina Bryant Setul, MD MD sp3 Price Linder RN RN rs5 Corrections: (The following items were deleted from the chart) 09:42 09:41 BLOOD CULTURE*+BA.LAB.BRZ ordered. EDMS EDMS 09:42 09:42 CBC+H.LAB.BRZ ordered. EDMS EDMS 09:42 09:42 COMPREHENSIVE METABOLIC PANEL+C.LAB.BRZ ordered. EDMS EDMS 09:42 09:42 LACTATE+C.LAB.BRZ ordered. EDMS EDMS 09:42 09:42 PROTIME (+INR)+COAG.LAB.BRZ ordered. EDMS EDMS 09:42 09:42 PTT, ACTIVATED+COAG.LAB.BRZ ordered. EDMS EDMS 09:42 09:42 Urinalysis+U.LAB.BRZ ordered. EDMS EDMS 09:42 09:42 Troponin High Sensitivity+C.LAB.BRZ ordered. EDMS EDMS 12:53 12:53 Urine Culture+BA.LAB.BRZ ordered. EDMS EDMS 14 12:10 sp3 eb 15:00 14:31 423 eb eb
[2024-02-21] MEDS ORDERED: CEFTRIAXONE 1000 MG/VIAL ONE (12:32)
--- NOTE | 2024-02-21 13:20 | P.HP ---
Certification for Inpatient Patient admitted to: Inpatient With expected LOS: >2 Midnights <Rachel Yoder - Last Filed: 02/21/24 13:57> Patient History Date of Service: 02/21/24 Reason for admission: AMS, UTI History of Present Illness: Ms. Boston is a 78-year-old resident of [facility] since 12/06/2023. She had not been to this facility until yesterday when she came for a mechanical fall. She was evaluated in the emergency department yesterday with some x-rays of her lower extremities, vital signs are stable, she was given a [place] and [facility] was [facility] to the [facility] again today for a decrease in her mental status. She was apparently placed in the SNF for COPD, dementia, late onset Alzheimer's, anemia , hypertension with chronic kidney disease, hypothyroidism, unspecified protein calorie malnutrition, morbid obesity with a BMI of 50+, vitamin D deficiency, hypokalemia, CHF, and a. Fib with a pacemaker. All history has been obtained per the ED physician in the patient's chart from [facility] as patient is poorly responsive. She does open her eyes to voice and tries to respond to questions. She indicates that she has no pain. She will be admitted for observation, repeat lab evaluation, urine culture, and gentle hydration as she appears dry. Evaluation in the ED: WBC 5.6 with 15.3% monocytes, H/H 10.9/33.6, sodium 140, p otassium 4.4, chloride 104, bicarb 29, glucose 89, BUN 24, creatinine 1.74 with a GFR of 30, liver enzymes within normal limits, albumin 2.9, lactate less than 0.8, INR 1.78, urine appears infected but 20-50 squamous so we will resend another sample for culture, VBG is done with a oxygen saturation of 91% pCO2 59 pO2 of 3.9, troponin 14.2, flu and COVID negative Imaging in the ED: Chest x-ray read as "no acute intrathoracic process suspected", of note moderate cardiomegaly with dual-lead pacemaker, CT brain without shows "no acute intracranial abnormality" Home medications list reviewed: Yes - Past Medical/Surgical History Has patient received pneumonia vaccine in the past: Yes Diabetic: No -: COPD -: CHF -: A-fib -: Hypertension with CKD -: Anemia -: Hypothyroidism -: Morbid obesity with malnutrition -: Anxiety -: Dementia -: Pacemaker Psychosocial/ Personal History: Lives at [facility], debility, morbid obesity - Social History Smoking Status: Unknown if ever smoked CD- Drugs: No Caffeine use: Yes Place of Residence: [facility]mediate <Rachel Yoder Jose - Last Filed: 02/21/24 13:57> Date of Service: 02/21/24 <LinaMarydaylin Amaro - Last Filed: 02/21/24 17:28> Allergies iodine Allergy (Verified 02/21/24 13:21) Sulfa (Sulfonamide Antibiotics) Allergy (Verified 02/21/24 13:21) tositumomab Allergy (Verified 02/21/24 13:22) Review of Systems 10-point ROS is otherwise unremarkable General: As per HPI Neurological: As per HPI <Rachel Yoder Jose - Last Filed: 02/21/24 13:57> Physical Examination - Physical Exam General: Obese, Other (Obtunded, appears dry) HEENT: Atraumatic, Normocephalic Neck: Supple Respiratory: Normal air movement Cardiovascular: Normal pulses Capillary refill: <2 Seconds Gastrointestinal: Soft and benign Musculoskeletal: No clubbing Integumentary: Other (Scattered healing shallow bruises) Neurological: Abnormal speech, Abnormal strength, Abnormal tone, Abnormal affect, Dementia Lymphatics: No axilla or inguinal lymphadenopathy Urinary: Arreaga catheter External genitalia: Deferred Rectal: Deferred - Studies Laboratory Data (last 24 hrs) 02/21/24 02/21/24 02/21/24 10:55 10:55 10:55 WBC 5.60 Hgb 10.9 L Hct 33.6 L Plt Count 161 PT 19.6 H INR 1.78 APTT 39.6 H Sodium 140 Potassium 4.4 BUN 24 H Creatinine 1.74 H Glucose 89 Total Bilirubin 0.9 AST 18 ALT 18 Alkaline Phosphatase 76 Microbiology Data (last 24 hrs): 02/21/24 10:55 Nasopharnyx Influenza Type A Antigen Screen - Final 02/21/24 10:55 Nasopharnyx Influenza Type B Antigen Screen - Final <Rachel Yoder Jose - Last Filed: 02/21/24 13:57> - Studies Laboratory Data (last 24 hrs) 02/21/24 02/21/24 02/21/24 10:55 10:55 10:55 WBC 5.60 Hgb 10.9 L Hct 33.6 L Plt Count 161 PT 19.6 H INR 1.78 APTT 39.6 H Sodium 140 Potassium 4.4 BUN 24 H Creatinine 1.74 H Glucose 89 Total Bilirubin 0.9 AST 18 ALT 18 Alkaline Phosphatase 76 Microbiology Data (last 24 hrs): 02/21/24 10:55 Nasopharnyx Influenza Type A Antigen Screen - Final 02/21/24 10:55 Nasopharnyx Influenza Type B Antigen Screen - Final <Mary Millsalphonsoleonard Sondra - Last Filed: 02/21/24 17:28> Assessment and Plan - Plan Dementia/poorly communicative/debility OT, PT, and speech therapy consult COPD Pulmonary toilet Nebulizers Hypertension with CKD A-fib Amiodarone 200 mg daily Xarelto CHF with volume deficit Lasix 40 p.o. daily Spironolactone Gentle hydration Strict VENANCIO Daily weight Monitor and replete electrolytes Abnormal urine Urine culture Given Rocephin in the ER Lactobacillus Behavior modification Patient has prescription for divalproex Donepezil Risperdal Citalopram Namenda Hypothyroidism Levothyroxine VTE/GI prophylaxis Xarelto/Protonix Discharge Plan: Intermediate Plan to discharge in: 48 Hours - Advance Directives Does patient have a Living Will: No Does patient have a Durable POA for Healthcare: No - Code Status/Comfort Care Code Status Assessed: Yes Code Status: Full Code <Rachel Yoder Jose - Last Filed: 02/21/24 13:57> - Plan Pt seen and examined. I agree with the note by the COPPER FLOTATION OPERATOR. Pt is a 78yo female with past medical history of Dementia, A. fib, COPD and CHF who presents with AMS. Of note, pt was in the ER yesterday after a mechanical fall and we did x-ray of the lower extremities before [facility]. . Today, EMS was called to the [facility] because she was confused and poorly responsive. On admission, lab studies show wbc 5.6, Hgb 10.9, K 4.4 and Cr 1.79. UA is positive for UTI. CT head and CXR are unremarkable. At bedside, pt is in NAD A/P: AMS: Likely due to UTI and underlying dementia. Will continue supportive care and rocephin. Will f/u urine cx. Hx of CHF: Will continue lasix, daily weight and strict I/O. A. fib: Will continue telemetry, xarelto and amiodarone. Hx of COPD: Stable. Not in exacerbation. Will continue prn duoneb. Morbid obesity: Pt will benefit from weight loss. Will continue home meds for other chronic medical problems. <Bhumi Mills - Last Filed: 02/21/24 17:28>
[2024-02-21] MEDS ORDERED: SODIUM CHLORIDE 0.9% 10ML INJ IV PRN (13:37)
[2024-02-21] MEDS ORDERED: POLYETHYL GLY 3350 17 GM/DOSE PO PRN (13:37)
[2024-02-21] MEDS: NA CHLORIDE 0.9% 1,000 ML IV SCH (14:00)
[2024-02-21] MEDS: LACTOBACILLUS/ACIDOPHILUS TAB PO SCH (14:00)
[2024-02-21 15:04] LABS: Thyroid Stimulating Hormone 1.77 uIU/mL (0.358-3.740)
[2024-02-21] MEDS: RIVAROXABAN 20 MG TABLET PO SCH (16:58)
[2024-02-21] MEDS ORDERED: RIVAROXABAN 10 MG TABLET PO SCH (17:00)
[2024-02-21] MEDS: BUDESONIDE 0.5 MG/2 ML NEB NEB SCH (19:14)
[2024-02-21] MEDS: ARFORMOTEROL TARTRATE 15 MCG/2 ML VIAL.NEB NEB SCH (19:14)
[2024-02-21] MEDS: ALBUTEROL 2.5 MG/3 ML NEB SOL NEB SCH (19:14)
[2024-02-21] MEDS: RISPERIDONE 0.25 MG TABLET PO SCH (20:34)
[2024-02-21] MEDS: MEMANTINE HCL 10 MG TABLET PO SCH (20:34)
[2024-02-21] MEDS: DONEPEZIL HCL 5 MG TAB PO SCH (20:35)
[2024-02-22] MEDS: LEVOTHYROXINE SOD 0.075 MG TAB PO SCH (06:31)
[2024-02-22 07:22] LABS: Absolute Eosinophils 0.1 K/uL (0-0.5); Absolute Lymphocytes (CBC) 0.7 K/uL (0.7-4.9); Absolute Monocytes 0.6 K/uL (0.1-1.3); Absolute Neutrophil 3.9 K/uL (1.8-8.0); Basophils % 0.4 % (0-1.3); Eosinophils % 2.7 % (0-4.4); Hematocrit 31.8 % (36.0-45.0); Hemoglobin 10.3 g/dL (12.0-15.0); Lymphocytes % 12.7 % (15.3-44.8); MCH 31.9 pg (27.0-35.0); MCHC 32.4 g/dL (32.0-36.0); MCV 98.7 fL (80-100); MPV 8.1 fL (7.6-11.3); Monocytes % 10.5 % (3.3-12.3); Neutrophils % 73.7 % (41.7-73.7); Nucleated Red Blood Cells % 0.1 % (0-0); Platelets 122 thou/uL (152-406); RBC Red Blood Cell Count 3.22 M/uL (3.86-4.86); Red Cell Distribution Width 15.1 % (12.1-15.2)
[2024-02-22 07:39] LABS: Albumin 2.5 g/dL (3.4-5.0); Albumin/Globulin Ratio 0.9 (1.1-1.8); Anion Gap 8.3 mEq/L (5.0-15.0); Bilirubin Total 0.5 mg/dL (0.2-1.0); Globulin 2.9 g/dL (2.3-3.5); Magnesium 1.4 mg/dL (1.6-2.4); Phosphorus 3.2 mg/dL (2.5-4.9); Potassium 4.3 mEq/L (3.5-5.1); Protein, Total 5.4 g/dL (6.4-8.2)
[2024-02-22] MEDS: FUROSEMIDE 20 MG TABLET PO SCH (08:52)
[2024-02-22] MEDS: AMIODARONE HCL 200 MG TAB PO SCH (08:52)
[2024-02-22] MEDS: SPIRONOLACTONE 25 MG TABLET PO SCH (08:53)
[2024-02-22] MEDS: PANTOPRAZOLE 40 MG INJ IVP SCH (08:54)
[2024-02-22] MEDS: CEFTRIAXONE 1,000 MG in NA CHLORIDE 0.9% 50 ML IVPB SCH (08:54)
[2024-02-22] MEDS: Magnesium Sulfate 2gm IVPB 2 G/50 ML BAG IV SCH (12:32)
[2024-02-22 15:51] VITALS: BMI 57.0
--- NOTE | 2024-02-22 19:05 | P.PN ---
Subjective Date of Service: 02/22/24 Chief Complaint: AMS, UTI Subjective: No new changes (tolerating some po with assistance) <Rachel Yoderlen - Last Filed: 02/22/24 19:01> Date of Service: 02/22/24 <Bhumi Mills - Last Filed: 02/22/24 21:38> Review of Systems 10-point ROS is otherwise unremarkable General: Weakness Neurological: Weakness <Rachel Yoderlen - Last Filed: 02/22/24 19:01> Physical Examination - Vital Signs Temperature: 97.2 F Blood Pressure: 108/42 Pulse: 65 Respirations: 16 Pulse Ox (%): 94 - Physical Exam General: Alert, Demented HEENT: Atraumatic, Normocephalic Neck: Supple Respiratory: Normal air movement Cardiovascular: Irregular heart rate/rhythm Capillary refill: <2 Seconds Gastrointestinal: Soft and benign Musculoskeletal: No clubbing Integumentary: No rashes Neurological: Abnormal strength, Abnormal affect Lymphatics: No axilla or inguinal lymphadenopathy External genitalia: Deferred Rectal: Deferred - Studies Microbiology Data (last 24 hrs): 02/21/24 10:55 Blood - Blood Anaerobic Blood Culture - Final 02/21/24 11:40 Blood - Blood Blood Culture Gram Stain - Final 02/21/24 11:40 Blood - Blood Anaerobic Blood Culture - Final <Asia Yodery Jose - Last Filed: 02/22/24 19:01> - Studies Microbiology Data (last 24 hrs): 02/21/24 10:55 Blood - Blood Anaerobic Blood Culture - Final 02/21/24 11:40 Blood - Blood Blood Culture Gram Stain - Final 02/21/24 11:40 Blood - Blood Anaerobic Blood Culture - Final <Bhumi Mills - Last Filed: 02/22/24 21:38> Assessment And Plan - Plan Dementia/poorly communicative/debility OT, PT, and speech therapy consult COPD Pulmonary toilet Nebulizers Hypertension with CKD A-fib Amiodarone 200 mg daily Xarelto CHF with volume deficit Lasix 40 p.o. daily Spironolactone Gentle hydration Strict VENANCIO Daily weight Monitor and replete electrolytes Abnormal urine Urine culture 02/22/24 +4 GNR - awaiting C&S Given Rocephin in the ER Lactobacillus Behavior modification Patient has prescription for divalproex Donepezil Risperdal Citalopram Namenda Hypothyroidism Levothyroxine VTE/GI prophylaxis Xarelto/Protonix <Rachel Yoder - Last Filed: 02/22/24 19:01> - Plan Pt seen and examined. I agree with the note by the FILTERING MACHINE TENDER HELPER. Pt is confused at baseline.Will benefit from SNF placement. Will resume home med for other chronic medical problems as needed. <Bhumi Mills - Last Filed: 02/22/24 21:38>
[2024-02-22] MEDS: IPRATROPIUM BROM 0.5MG/2.5ML NEB SCH (20:42)
[2024-02-23 06:57] LABS: Absolute Eosinophils 0.3 K/uL (0-0.5); Absolute Lymphocytes (CBC) 0.9 K/uL (0.7-4.9); Absolute Monocytes 0.5 K/uL (0.1-1.3); Absolute Neutrophil 2.8 K/uL (1.8-8.0); Basophils % 0.5 % (0-1.3); Eosinophils % 6.6 % (0-4.4); Hematocrit 29.3 % (36.0-45.0); Hemoglobin 9.6 g/dL (12.0-15.0); MCH 31.8 pg (27.0-35.0); MCHC 32.6 g/dL (32.0-36.0); MCV 97.4 fL (80-100); MPV 7.9 fL (7.6-11.3); Monocytes % 11.7 % (3.3-12.3); Neutrophils % 61.2 % (41.7-73.7); Platelets 129 thou/uL (152-406); RBC Red Blood Cell Count 3.01 M/uL (3.86-4.86); Red Cell Distribution Width 15.1 % (12.1-15.2)
[2024-02-23 07:08] LABS: Albumin 2.3 g/dL (3.4-5.0); Albumin/Globulin Ratio 0.7 (1.1-1.8); Bilirubin Total 0.6 mg/dL (0.2-1.0); Globulin 3.1 g/dL (2.3-3.5); Magnesium 1.9 mg/dL (1.6-2.4); Phosphorus 2.5 mg/dL (2.5-4.9); Protein, Total 5.4 g/dL (6.4-8.2)
[2024-02-23] MEDS: Meropenem 1,000 MG in NA CHLORIDE 0.9% 100 ML IV SCH (10:30)
--- NOTE | 2024-02-23 12:29 | P.PN ---
Subjective Date of Service: 02/23/24 Chief Complaint: AMS, UTI Subjective: Improving (more alert, expressive today) Review of Systems 10-point ROS is otherwise unremarkable General: Weakness, As per HPI Genitourinary: As per HPI Neurological: As per HPI Physical Examination - Vital Signs Temperature: 97.5 F Blood Pressure: 108/52 Pulse: 65 Respirations: 18 Pulse Ox (%): 95 - Physical Exam General: Alert, Demented, Obese HEENT: Atraumatic, Normocephalic Neck: Supple Respiratory: Normal air movement Cardiovascular: Normal pulses, Regular rate/rhythm, Normal S1 S2 Capillary refill: <2 Seconds Gastrointestinal: Soft and benign Musculoskeletal: No clubbing Integumentary: No rashes, Other (some scattered ecchymosis ) Neurological: Abnormal strength, Abnormal affect, Dementia Lymphatics: No axilla or inguinal lymphadenopathy Urinary: Arreaga catheter External genitalia: Deferred Rectal: Deferred - Studies Microbiology Data (last 24 hrs): 02/21/24 13:14 Catheterized Urine [place] Count - Final >100,000 CFU/ML. 02/21/24 13:14 Catheterized Urine - Final Klebsiella Pneumoniae 02/21/24 11:40 Blood - Blood Aerobic Blood Culture - Final 02/21/24 11:40 Blood - Blood Blood Culture Gram Stain - Final 02/21/24 11:40 Blood - Blood Anaerobic Blood Culture - Final 02/21/24 10:55 Blood - Blood Anaerobic Blood Culture - Final Assessment And Plan - Plan Dementia/poorly communicative/debility OT, PT, and speech therapy consult 02/22 tolerating po with assistance, much more awake, alert today COPD Pulmonary toilet Nebulizers Hypertension with CKD A-fib Amiodarone 200 mg daily Xarelto CHF with volume deficit Lasix 40 p.o. daily Spironolactone Gentle hydration Strict VENANCIO Daily weight Monitor and replete electrolytes Abnormal urine Urine culture 02/22/24 +4 GNR - awaiting C&S - Klebsiella, Merrem recommended and started today. Will need 10 day course. Orders for Midline and SNF adm inistration sent. last dose day 03/04/24, plan to dc back to [place] tomorrow Given Rocephin in the ER Lactobacillus Behavior modification Patient has prescription for divalproex - non-toxic level Donepezil Risperdal Citalopram Namenda Hypothyroidism Levothyroxine VTE/GI prophylaxis Xarelto/Protonix
[2024-02-24] MEDS: LEVOTHYROXINE SOD 0.075 MG TAB PO SCH (05:43)
[2024-02-24 06:51] LABS: Absolute Eosinophils 0.3 K/uL (0-0.5); Absolute Lymphocytes (CBC) 1.1 K/uL (0.7-4.9); Absolute Monocytes 0.7 K/uL (0.1-1.3); Absolute Neutrophil 3.4 K/uL (1.8-8.0); Basophils % 0.3 % (0-1.3); Eosinophils % 5.9 % (0-4.4); Hemoglobin 10.4 g/dL (12.0-15.0); MCH 32.4 pg (27.0-35.0); MCHC 33.4 g/dL (32.0-36.0); MCV 97.1 fL (80-100); Monocytes % 12.9 % (3.3-12.3); Neutrophils % 60.9 % (41.7-73.7); Platelets 154 thou/uL (152-406); RBC Red Blood Cell Count 3.19 M/uL (3.86-4.86); Red Cell Distribution Width 15.4 % (12.1-15.2)
[2024-02-24 07:15] LABS: Albumin 2.5 g/dL (3.4-5.0); Albumin/Globulin Ratio 0.8 (1.1-1.8); Bilirubin Total 0.7 mg/dL (0.2-1.0); Globulin 3.1 g/dL (2.3-3.5); Phosphorus 2.1 mg/dL (2.5-4.9); Protein, Total 5.6 g/dL (6.4-8.2)
--- NOTE | 2024-02-24 19:42 | P.DS ---
Admission Date: 02/21/24 Discharge Date: 02/24/24 Disposition: TRANSFER TO [facility] Discharge Condition: GOOD Reason for Admission: AMS, UTI Consultations: none Procedures: none Brief History of Present Illness: Ms. Boston is a 78-year-old resident of [facility] since 12/06/2023. She had not been to this facility until yesterday when she came for a mechanical fall. She was evaluated in the emergency department yesterday with some x-rays of her lower extremities, vital signs are stable, she was given a [place] and discharged back to the intermediate. EMS was called to the intermediate again today for a decrease in her mental status. She was apparently placed in the SNF for COPD, dementia, late onset Alzheimer's, anemia , hypertension with chronic kidney disease, hypothyroidism, unspecified protein calorie malnutrition, morbid obesity with a BMI of 50+, vitamin D deficiency, hypokalemia, CHF, and a. Fib with a pacemaker. All history has been obtained per the ED physician in the patient's chart from [place] as patient is poorly responsive. She does open her eyes to voice and tries to respond to questions. She indicates that she has no pain. She will be admitted for observation, repeat lab evaluation, urine culture, and gentle hydration as she appears dry. Evaluation in the ED: WBC 5.6 with 15.3% monocytes, H/H 10.9/33.6, sodium 140, potassium 4.4, chloride 104, bicarb 29, glucose 89, BUN 24, creatinine 1.74 with a GFR of 30, liver enzymes within normal limits, albumin 2.9, lactate less than 0.8, INR 1.78, urine appears infected but 20-50 squamous so we will resend another sample for culture, VBG is done with a oxygen saturation of 91% pCO2 59 pO2 of 3.9, troponin 14.2, flu and COVID negative Imaging in the ED: Chest x-ray read as "no acute intrathoracic process suspected", of note moderate cardiomegaly with dual-lead pacemaker, CT brain without shows "no acute intracranial abnormality" Hospital Course: Ms. Boston did very well over the course of her hospitalization. With fluid resuscitation, she was much more alert. Urine cultures were positive for Klebsiella pneumoniae most sensitive to Merrem. Midline was started yesterday on 02/23/2024 and Merrem started. Orders for return to [facility] with midline and Merrem 1 g every 12h were placed. Communication between social work and would like for IV therapy set up was successful. Patient will be transferred per EMS back to would like in stable condition. Vital Signs/Physical Exam: Temp Pulse Resp BP Pulse Ox 96.9 F 62 18 128/55 L 98 02/24/24 11:00 02/24/24 11:00 02/24/24 11:00 02/24/24 11:00 02/24/24 11:00 General: Alert, Demented, Confused, Obese HEENT: Atraumatic, Normocephalic Neck: Supple Respiratory: Normal air movement Cardiovascular: Regular rate/rhythm, Normal S1 S2 Capillary refill: <2 Seconds Gastrointestinal: Soft and benign Musculoskeletal: No clubbing, No swelling Integumentary: Other (scattered ecchymosis to extremities) Neurological: Dementia Lymphatics: No axilla or inguinal lymphadenopathy External genitalia: Deferred Rectal: Deferred Laboratory Data at Discharge: WBC 5.50 thou/uL (4.3-10.9) 02/24/24 06:22 Hgb 10.4 g/dL (12.0-15.0) L D 02/24/24 06:22 Hct 31.0 % (36.0-45.0) L 02/24/24 06:22 Plt Count 154 thou/uL (152-406) 02/24/24 06:22 PT 19.6 SECONDS (9.4-12.5) H 02/21/24 10:55 INR 1.78 02/21/24 10:55 APTT 39.6 SECONDS (24.3-36.9) H 02/21/24 10:55 Sodium 140 mEq/L (136-145) 02/24/24 06:22 Potassium 4.0 mEq/L (3.5-5.1) 02/24/24 06:22 BUN 18 mg/dL (7-18) 02/24/24 06:22 Creatinine 1.09 mg/dL (0.55-1.02) H 02/24/24 06:22 Glucose 82 mg/dL (74-106) 02/24/24 06:22 Phosphorus 2.1 mg/dL (2.5-4.9) L 02/24/24 06:22 Magnesium 2.0 mg/dL (1.6-2.4) 02/24/24 06:22 Total Bilirubin 0.7 mg/dL (0.2-1.0) 02/24/24 06:22 AST 15 U/L (15-37) 02/24/24 06:22 ALT 17 U/L (13-56) 02/24/24 06:22 Alkaline Phosphatase 63 U/L (45-117) 02/24/24 06:22 Triglycerides 65 mg/dL (<150) 02/22/24 06:40 Cholesterol 119 mg/dL (<200) 02/22/24 06:40 HDL Cholesterol 63 mg/dL (40-60) H 02/22/24 06:40 Cholesterol/HDL Ratio 1.89 02/22/24 06:40 Home Medications: Acetaminophen [Tylenol] 650 mg PO Q6HP PRN 02/23/24 Amiodarone HCl [Cordarone*] 200 mg PO DAILY 02/23/24 Budesonide [Pulmicort*] 1 puff IH BID 02/23/24 Calcium Carbonate [Calcium] 500 mg PO DAILY 02/23/24 Carboxymethylcellulose Sodium [Artificial Tears] 1 drop EACH EYE DAILY 02/23/24 Cholecalciferol (Vitamin D3) [Vitamin D3] 1,000 unit PO DAILY 02/23/24 Citalopram Hydrobromide [Celexa] 40 mg PO BEDTIME 02/23/24 Divalproex Sodium [Depakote Sprinkle] 125 mg PO BID 02/23/24 Donepezil HCl [Aricept] 10 mg PO BEDTIME 02/23/24 Famotidine 20 mg PO BID 02/23/24 Formoterol Fumarate 1 dose IH BID 02/23/24 Furosemide [Lasix*] 40 mg PO DAILY 02/23/24 Ipratropium/Albuterol Sulfate [Combivent Respimat 20-100 Mcg] 4 gm IH QID 02/23/24 Ipratropium/Albuterol Sulfate [Iprat-Albut 0.5-3(2.5) mg/3 ml] 1 dose IH Q4HP PRN 02/23/24 Lactobacillus Acidophilus [Acidophilus Lactobacilli] 2 each PO DAILY 02/23/24 Levothyroxine Sodium 150 mcg PO DAILY 02/23/24 Melatonin [Melatonin*] 6 mg PO BEDTIME 02/23/24 Memantine HCl [Namenda*] 5 mg PO BID 02/23/24 Montelukast [Singulair*] 10 mg PO BEDTIME 02/23/24 Oxybutynin Chloride [Oxybutynin Chloride ER] 5 mg PO DAILY 02/23/24 Potassium Chloride [Klor-Con] 20 meq PO DAILY 02/23/24 Rivaroxaban [Xarelto] 20 mg PO DAILY 02/23/24 Spironolactone [Aldactone*] 25 mg PO DAILY 02/23/24 risperiDONE [Risperidone] 0.25 mg PO BEDTIME 02/23/24 Arformoterol Tartrate [Brovana] 15 mcg NEB BIDRESP #60 vial.neb 02/24/24 New Medications: Arformoterol Tartrate [Brovana] 15 mcg NEB BIDRESP #60 vial.[facility] Physician Discharge Instructions: Ms. Boston did very well over the course of her hospitalization. With fluid resuscitation, she was much more alert. Urine cultures were positive for Klebsiella pneumoniae most sensitive to Merrem. Midline was started yesterday on 02/23/2024 and Merrem started. Orders for return to [facility] with midline and Merrem 1 g every 12h were placed. Communication between social work and [facility] for IV therapy set up was successful. Patient will be transferred per EMS back to [facility] in stable condition. -DC IV and DC back to intermediate once midline/Picc line is placed and IV antibiotics are arranged -Follow-up with PCP in 1 to 2 weeks -Follow-up with Neurology in 1-2 weeks -Please call Dr. Boyle at [phone] if any questions regarding hospital stay -Please call nursing station at [phone] if any nursing or medication questions -Return to the emergency room if symptoms worsen Diet: AHA Activity: Fall precautions Followup: NONE,NONE [Primary Care Provider] -
[2024-03-01 12:38] VITALS: BP 128/55; TEMP 96.9
[2024-03-01 12:40] VITALS: O2SAT 96
== END 2024-02-24 15:11 | DRG 690 ==
LOC: ER 09:28 → ERHOLD 13:37 → 4TH 15:23
PROVIDERS: ADMIT Hospitalist; ATTEND Hospitalist
PROC: 4A033R1 Measurement of Arterial Saturation, Peripheral, Percutaneous Approach (ICD-10-PCS; principal; 2024-02-21)
PROC: 0T9B70Z Drainage of Bladder with Drainage Device, Via Natural or Artificial Opening (ICD-10-PCS; 2024-02-21)
PROC: 02HV33Z Insertion of Infusion Device into Superior Vena Cava, Percutaneous Approach (ICD-10-PCS; 2024-02-23)
DX: N39.0 Urinary tract infection, site not specified (principal); I50.32 Chronic diastolic (congestive) heart failure; Z68.43 Body mass index [BMI] 50.0-59.9, adult; I13.0 Hypertensive heart and chronic kidney disease with heart failure and stage 1 through stage 4 chronic kidney disease, or unspecified chronic kidney disease; N18.30 Chronic kidney disease, stage 3 unspecified; D63.1 Anemia in chronic kidney disease; E66.01 Morbid (severe) obesity due to excess calories; I48.91 Unspecified atrial fibrillation; E03.9 Hypothyroidism, unspecified; K21.9 Gastro-esophageal reflux disease without esophagitis; J44.9 Chronic obstructive pulmonary disease, unspecified; G30.1 Alzheimer's disease with late onset; F02.80 Dementia in other diseases classified elsewhere, unspecified severity, without behavioral disturbance, psychotic disturbance, mood disturbance, and anxiety; B96.1 Klebsiella pneumoniae [K. pneumoniae] as the cause of diseases classified elsewhere; Z96.1 Presence of intraocular lens; Z88.2 Allergy status to sulfonamides; Z88.8 Allergy status to other drugs, medicaments and biological substances; Z11.52 Encounter for screening for COVID-19; Z79.01 Long term (current) use of anticoagulants; Z91.048 Other nonmedicinal substance allergy status; Z95.810 Presence of automatic (implantable) cardiac defibrillator; Z79.890 Hormone replacement therapy; Z79.899 Other long term (current) drug therapy
CPT/HCPCS: 36415; 36600; 70450; 71045; 80053; 80061; 80164; 81001; 82805; 82947; 83605; 83735; 83880; 84100; 84439; 84443; 84484; 85025; 85610; 85730; 87040; 87077; 87086; 87088; 87186; 87205; 87804; 87811; 92610; 94640; 96374; 99284; J0696; J2185; J2470; J3475; J7030; J7605; J7613; J7626; J7644

== ENCOUNTER 2024-03-15 10:18 | Emergency (ER) | payer OTHER ==
--- OUTSIDE RECORDS SUMMARY | 2024-03-15 10:21 | XMS REPORT | Continuity of Care Document ---
Author Name Unknown Address [address] [facility] [address] 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 Name Role Phone [id number] Attending Clinician Unavailable LUDIN PEREZ Attending Clinician Unavailable LINDA BLANCA Attending Clinician Unavailable JAKE BRICENO Attending Clinician Unavailbrenton peralta [id number] Admitting Clinician Unavailable LUDIN PEREZ Admitting Clinician Unavailable LINDA BLANCA Admitting Clinician Unavailable JAKE BRICENO Admitting Clinician UnavailGIANLUCA Watt Admitting Clinician Unavailable JOSE MARIA LINN Admitting Clinician Unavailable Payers Payer Name Policy Type Policy Number Effective Date Expirati on Date Source [facility] [id number] [facility] [id number] Problems Condition Name Condition Details Condition Category [...] 300 MG Oral Capsule Yes 300mg 2xD [facility] (LUF/LI V/SA) doxycycline doxycycline Yes 100mg 2xD [facility] (LUF/LI V/SA) Vital Signs Vital Name Observation Time Observation Value Comments Zahira calero Height 2020-07-28 15:55:00 152.4 CM Weight 2020-07-28 15:55:00 136.07 KG Pulse Rate 2020-07-28 17:20:00 79 /min [facility] (LUF/RAY/SA) Respiratory Rate 2020-07-28 17:20:00 22 /min [facility] (F/RAY/SA) O2% BldC Oximetry 2020-07-28 17:20:00 95 % [facility] (F/RAY/SA) BP Systolic 2020-07-28 16:16:00 117 mm[Hg] [facility] (LUF/RAY/SA) BP Diastolic 2020-07-28 16:16:00 51 mm[Hg] [facility] (F/RAY/SA) Body Temperature 2020-07-28 15:55:00 97.1 [degF] [facility] (F/RAY/SA) Height 2020-07-28 15:55:00 60 [in_i] [facility] (F/RAY/SA) Weight 2020-07-28 15:55:00 300 [lb_av] [facility] (F/RAY/SA) BMI (Body Mass Index) 2020-07-28 15:55:00 58.8 kg/m2 [facility] (F/RAY/SA) Weight Measured 2017-11-21 11:53:00 375 lbs [facility] (F/RAY/SA) Body Temperature 2017-11-21 11:53:00 98.2 F [facility] (F/RAY/SA) Respiratory Rate 2017-11-21 11:53:00 26 /min [facility] (F/RAY/SA) O2% BldC Oximetry 2017-11-21 11:53:00 97 % [facility] (LUF/RAY/SA) BP Systolic 2017-11-21 11:53:00 120 mm[Hg] [facility] (LUF/RAY/SA) BP Diastolic 2017-11-21 11:53:00 81 mm[Hg] [facility] (LUF/RAY/SA) Weight Measured 2017-10-20 17:37:00 326.28 lbs [facility] (LUF/RAY/SA) Body Temperature 2017-10-20 17:35:00 98.9 F [facility] (LUF/RAY/SA) Respiratory Rate 2017-10-20 17:35:00 20 /min [facility] (LUF/RAY/SA) O2% BldC Oximetry 2017-10-20 17:35:00 98 % [facility] (LUF/RAY/SA) BP Systolic 2017-10-20 17:35:00 119 mm[Hg] [facility] (LUF/RAY/SA) BP Diastolic 2017-10-20 17:35:00 49 mm[Hg] [facility] (LUF/RAY/SA) Height 2017-10-20 17:35:00 63 in [facility] (LUF/RAY/SA) BMI (Body Mass Index) 2017-10-20 17:35:00 57.8 [facility] (LUF/RAY/SA) Encounters Start Date/Time End Date/Time Encounter Type Admission Type Attending [facility] Care Facility Care Department Encounter ID Source 2021-09-03 11:17:09 Outpatient 3 [id number] [facility] [id number] [facility] [place] 2021-09-03 11:13:00 Outpatient 3 [id number] [facility] REF [id number] [facility] [place] 2020-07-28 15:47:00 2020-07-28 19:22:00 CELLULITIS OF RIGHT LOWER LIMB E LUDIN PEREZ [facility] N, [address], [place] [address] [facility] [id number] [facility] 2020-07-28 00:00:00 2020-07-28 00:00:00 Inpatient [facility] [place], [address], [place] [address] [facility] [id number] [facility] (LUF/LI V/SA) 2020-07-28 00:00:00 2020-07-28 00:00:00 Inpatient [facility] [place], [address], [place] [address] [facility] [id number] [facility] (LUF/LI V/SA) 2018-02-28 10:36:00 2018-02-28 23:59:00 ENC THERAPEUTC DRUG LEVL MONITORING O LINDA BLANCA [facility], [address] [place] [address] [facility] [id number] [facility] (LUF/LI V/SA) 2018-02-22 15:25:00 2018-02-22 23:59:00 ENC THERAPEUTC DRUG LEVL MONITORING O LINDA BLANCA [facility], [address] [place] [address] [facility] [id number] [facility] (LUF/LI V/SA) 2018-02-16 12:33:00 2018-02-16 23:59:00 ENC THERAPEUTC DRUG LEVL MONITORING O LINDA BLANCA [facility], [address] [place] [address] [facility] [id number] [facility] (LUF/LI V/SA) 2017-12-16 13:59:00 2017-12-16 23:59:00 PERS HX OTH VENOUS THROMBOSIS &EMBO O JAKE BRICENO [facility], [address] [facility] [place] [address] [facility] [id number] [facility] (LUF/LI V/SA) 2017-12-02 14:16:00 2017-12-02 23:59:00 ENC THERAPEUTC DRUG LEVL MONITORING O JAKE BRICENO [facility], [address] [place] [address] [facility] [id number] [facility] (LUF/LI V/SA) 2017-11-21 11:42:00 2017-11-21 14:50:00 COPD UNSPECIFIE D E GIANLUCA LACEY [facility], [address] [facility] [place] [address] [facility] [id number] [facility] (LUF/LI V/SA) 2017-10-20 17:27:00 2017-10-20 23:00:00 SPRAIN UNS LIGAMENT LT ANKLE INIT E JOSE MARIA LINN [facility], [address] [facility] [place] [address] [facility] [id number] [facility] (LUF/LI V/SA) Results Test Description Test Time Test Comments Results Result Co mments [facility] CEPHEID [id number] 17:52:00* Test Item Value Reference Range Interpretation Comme nts FT (test code = COVID) Negative (qualifier value) The MODIZY.COMed SARS-CoV -2 reagent is for in vitro use under FDA Emergency Use Authorization only. For questions regarding your test results, please contact the Coronavirus Call Center at [phone]. IN-HOUSE TESTING[facility] ClinicsXR CHEST AP/PA 1 VIEW 2020-07-28 17:50:44 [facility] (LUF/RAY/SA)Name: SARAVANAN LAN : [id number] Sex: FEXAM: XR CHEST AP/PA 1 VIEWINDICATION: [id number]: DyspneaCOMPARISON: NoneFINDINGS:One frontal imageobtained.MEDICAL DEVICES: NoneLUNGS: Changes [...] 5:44 PMDictated By: CHRISTO BORRERODate: 07/28/2020 17:44[facility] [id number] 17:19:00* Test Item Value Reference Range Interpretation [...] assessment and management of chronic kidney failure. [facility] ClinicsTROPONIN-I [id number] 17:15:00* Test Item Value Reference Range Interpretation Comme nts Troponin-I (test code = TROP) <0.015 ng/ml 0.000-0.034 N The 99th Percent ile URL is 0.045 ng/mL for the Siemens [place] Troponin I. The Joint Society of Cardiology/[place] College of Cardiology (ESC/ACC) and the National [...] first 24 hours after the clinical event. [facility] ClinicsPRO-BNP(B-Type Natriuretic Peptide)2020-07-28 17:15:00* Test Item Value Reference Range Interpretation Comme nts Pro-BNP(B-Peptide) (test cod e = PROBNP) 706 pg/ml 0-125 [facility] WITH AUTO [id number] 16:58:00* Test Item Value Reference Range Interpretation [...] (test code = IG%) 0.2 % 0.0-0.4 [facility] AND [id number] 12:17:00* Test Item Value Reference Range Interpretation Comme nts Protime (test code = PT) 12.0 seconds 9.0-11.9 H INR (test code = INR) 1.2 0.9-1.1 H INR results are intended ONLY to monitor Oral Anticoagulant therapy in stablized patients. The INR Therapeutic Range is 2.0 - 3.0 Patients with a mechanical heart, the INR Range is 2.5 - 3.5 [facility] AND [id number] 15:53:00* Test Item Value Reference Range Interpretation Comme nts Protime (test code = PT) 32.3 seconds 9.0-11.9 H INR (test code = INR) 3.1 0.9-1.1 H INR results are intended ONLY to monitor Oral Anticoagulant therapy in stablized patients. The INR Therapeutic Range is 2.0 - 3.0 Patients with a mechanical heart, the INR Range is 2.5 - 3.5 [facility] [place] AND [id number] 15:02:00* Test Item Value Reference Range Interpretation [...] - 3.5 Critical values were called to critical access hospital by [id number] on 02/16/2018 15:02 PM. Results were read back by critical access hospital. [facility] AND [id number] 15:35:00* Test Item Value Reference Range Interpretation Comme nts Protime (test code = PT) 14.0 seconds 9.0-11.9 H INR (test code = INR) 1.4 0.9-1.1 H INR results are intended ONLY to monitor Oral Anticoagulant therapy in stablized patients. The INR Therapeutic Range is 2.0 - 3.0 Patients with a mechanical heart, the INR Range is 2.5 - 3.5 [facility] AND [id number] 16:08:00* Test Item Value Reference Range Interpretation Comme nts Protime (test code = PT) 19.8 seconds 9.0-11.9 H INR (test code = INR) 1.9 0.9-1.1 H INR results are intended ONLY to monitor Oral Anticoagulant therapy in stablized patients. The INR Therapeutic Range is 2.0 - 3.0 Patients with a mechanical heart, the INR Range is 2.5 - 3.5 [facility] 14:31:00* Test Item Value Reference Range Interpretation Comme nts aPTT (test code = PTT) 30.5 seconds 23.0-33.0 [address]LufkinPT AND [id number] 14:31:00* Test Item Value Reference Range Interpretation Comme nts Protime (test code = PT) 14.8 seconds 9.0-11.9 H INR (test code = INR) 1.4 0.9-1.1 H INR results are intended ONLY to monitor Oral Anticoagulant therapy in stablized patients. The INR Therapeutic Range is 2.0 - 3.0 Patients with a mechanical heart, the INR Range is 2.5 - 3.[address]-[id number] 12:53:00* Test Item Value Reference Range Interpretation [...] and management of chronic kidney failure. er [address] [place] [address]-[place]ufkinXR CHEST AP/PA 1 [id number] 12:42:32er 18 Procedure: AP View ChestOrder date: [...] PMDictated By: ENRIQUETA NICHOLASDate: 11/21/2017 12:42[facility] WITH AUTO [id number] 12:24:00* Test Item Value Reference Range Interpretation [...] = IG%) 0.5 % 0.0-0.[address] [place] [address]-[facility], [id number] 06:14:00ER T2 ER T2 needs in and [...] S Cefepime <=1 S Ceftriaxone <=1 S Ciprofloxacin<=0.25 S Gentamicin <=1 S Imipenem <=0.25 S Levofloxacin 1 S Meropenem <=0.25 S Nitrofurantoin <=16 S Tetracycline <=1 S Trimeth/Sulfa <=20 S ESBL Negative -[facility] WITH MICROSCOPIC 2017-10-20 22:13:00* Test Item Value Reference Range Interpretation Comme nts Color (test code = UCOLR) YELLOW Clarity (test code = UCLAR) CLEAR Glucose (test code = UGLUC) NEGATIVE NEGATIVE N Bilirubin (test code = UBILI) NEGATIVE NEGATIVE N Ketones (test code = UKET) TRACE NEGATIVE A Specific [place] (test code = USPGR) 1.025 1.005-1.030 A [...] T2 needs in and out cath for [facility] AND [id number] 20:16:00* Test Item Value Reference Range Interpretation Comme nts Protime (test code = PT) 15.4 seconds 9.0-11.9 H INR (test code = INR) 1.5 0.9-1.1 H INR results are intended ONLY to monitor Oral Anticoagulant therapy in stablized patients. The INR Therapeutic Range is 2.0 - 3.0 Patients with a mechanical heart, the INR Range is 2.5 - 3.5 [address]2018-03-15 20:16:00* Test Item Value Reference Range Interpretation Comme nts aPTT (test code = PTT) 29.1 seconds 23.0-33.[address]-[id number] 20:07:00* Test Item Value Reference Range Interpretation [...] assessment and management of chronic kidney failure. [address]-[place]kinCBC WITH AUTO [id number] 19:58:00* Test Item Value Reference Range Interpretation [...] code = IG%) 0.3 % 0.0-0.[address]-[id number] 19:58:00* Test Item Value Reference Range Interpretation Comme nts CPK (test code = CPK) 70 U/L 30-[address]CT ABDOMEN/PELVIS W/O [id number] 19:57:57er t-2Procedure: CT ABDOMEN/PELVIS W/O CONTRASTOrder Date: [...] By: DAMIAN CHAUHANDate: 10/20/2017 19:57 [facility] CHEST W/O [id number] 19:48:26er t-2Procedure: CT CHEST W/O CONTRASTOrder Date: [...] PMDictated By: DAMIAN CHAUHANDate: 10/20/2017 19:48[facility] LIBERTYED RAPID [id number] 19:48:00* Test Item Value Reference Range Interpretation Comme nts B-PEPTIDE (BIOSITE) (test co de = BIOBNP) 95.2 pg/ml 0.0-100.0 SERIAL INSTRUMENT NUMBER (te st code = SERIAL) [id number] [facility]kin[facility] RAP[facility] [id number] 19:48:00* Test Item Value Reference Range Interpretation Comme nts CKMB (BIOSITE) (test code = BIOCKMB) 2.1 ng/ml 0.0-2.5 TROPONIN-I (BIOSITE) (test c ode = BIOTROP) <0.050 ng/ml 0.000-0.050 N MYOGLOBIN (BIOSITE) (test co de = BIOMYO) 165.0 ng/ml 0.0-170.0 SERIAL INSTRUMENT NUMBER (te st code = SERIAL) [id number] [facility]XR KNEE 1-2 [id number] 19:44:36er t-2Procedure: XR KNEE 1-2 VWSOrder Date: [...] PMDictated By: DAMIAN CHAUHANDate: 10/20/2017 19:44[facility] KNEE 1-2 [id number] 19:43:36er t-2Procedure: XR KNEE 1-2 VWSOrder Date: [...] PMDictated By: AMY CHAUHAN.Date: 10/20/2017 19:43[facility] CERVICAL SPINE W/O [id number] 19:39:25er t-2Procedure: CT CERVICAL SPINE W/O CONTRASTOrder [...] PMDictated By: DAMIAN CHAUHANDate: 10/20/2017 19:39[facility]XR FOOT COMP MIN 3 [id number] 19:35:45er t-2 Procedure: XR FOOT COMP MIN [...] PMDictated By: DAMIAN CHAUHAN.Date: 10/20/2017 19:35[facility] HEAD W/O CONTRAST 2017-10-20 19:32:45er t-2Procedure: CT [...] 10/20/20177:26 PMDictated By:DAMIAN CHAUHANDate: 10/20/2017 19:32[facility]XR ANKLE COMP MIN 3 [id number] 19:28:24er t-2Procedure: XR ANKLE COMP MIN 3 [...] By: DAMIAN CHAUHAN.Date: 10/20/2017 19:28[facility] AND [id number] 16:47:00* Test Item Value Reference Range Interpretation Comme nts Protime (test code = PT) 10.0 seconds 9.0-11.9 INR (test code = INR) 1.0 0.9-1.1 INR results are intended ONLY to monitor Oral Anticoagulant therapy in stablized patients. The INR Therapeutic Range is 2.0 - 3.0 Patients with a mechanical heart, the INR Range is 2.5 - 3.5 [facility] Notes Date/Time Note Provider Source 2017-10-20 23:00:00 Discharge Instructions 2 Discharge Diagnosis contusions/UTI Important Information Consult your physician or return to the Emergency Department immediately if worse, if not better as expected, or if any problems arise. Follow Up Care Yes Important Information Please understand that you have received care only on an emergency basis. If your condition does not improve, you should call your personal physician for follow-up care. If you do not have a physician, you may call the referred physician listed. Follow Up Care Scheduled Appointment for OP Cardiac Stress Test Important Information If you have questions about your care or these discharge instructions, you may call the Emergency Department. Please take your discharge paperwork with you to any follow-up appointments. Follow-Up With: Primary Care Physician Activity Level Stay in Bed Diet Regular Prescriptions Given Via: EMS left DC instructions and Rx at bedside. Macrobid called in to [facility] pharmacy and notified daughter of Rx. Printed and given to patient/caregiver. Patient Teaching Patient education provided [facility] ([facility]/RAY/SA)
[2024-03-15 10:48] LABS: Specific Gravity 1.014 (1.005-1.030); Sqamous Epithelial <5 /HPF (None Seen); Urine Bacteria None Seen /HPF (<20); Urine Bilirubin NEGATIVE (Negative); Urine Blood Negative (Negative); Urine Clarity Turbid (Clear); Urine Color Light-Yellow (Yellow); Urine Culture Reflex Order REFLEXED; Urine Glucose NEGATIVE (Negative); Urine Ketones NEGATIVE (Negative); Urine Microscopic Reflex YN ORDER UMIC; Urine Mucus Slight /HPF (None Seen); Urine Nitrite NEGATIVE (Negative); Urine Protein NEGATIVE (Negative); Urine RBC <5 /HPF (None Seen); Urine Urobilinogen Normal (Normal)
[2024-03-15 10:50] LABS: Absolute Basophils 0.1 K/uL (0-0.5); Absolute Eosinophils 0.2 K/uL (0-0.5); Absolute Lymphocytes (CBC) 1.3 K/uL (0.7-4.9); Absolute Monocytes 0.6 K/uL (0.1-1.3); Absolute Neutrophil 3.8 K/uL (1.8-8.0); Basophils % 0.9 % (0-1.3); Hematocrit 27.9 % (36.0-45.0); Hemoglobin 9.1 g/dL (12.0-15.0); Lymphocytes % 21.7 % (15.3-44.8); MCH 31.8 pg (27.0-35.0); MCHC 32.6 g/dL (32.0-36.0); MCV 97.5 fL (80-100); MPV 8.1 fL (7.6-11.3); Monocytes % 9.6 % (3.3-12.3); Neutrophils % 63.8 % (41.7-73.7); Nucleated Red Blood Cells % 0.1 % (0-0); Platelets 151 thou/uL (152-406); RBC Red Blood Cell Count 2.86 M/uL (3.86-4.86); Red Cell Distribution Width 15.2 % (12.1-15.2)
[2024-03-15 11:15] LABS: Albumin 2.4 g/dL (3.4-5.0); Albumin/Globulin Ratio 0.7 (1.1-1.8); Anion Gap 13.2 mEq/L (5.0-15.0); Bilirubin Total 0.5 mg/dL (0.2-1.0); Globulin 3.5 g/dL (2.3-3.5); Potassium 5.2 mEq/L (3.5-5.1); Protein, Total 5.9 g/dL (6.4-8.2)
[2024-03-15 11:39] LABS: PT Prothrombin Time 13.9 SECONDS (9.4-12.5); PTT, Activated Partial Thromb 35.9 SECONDS (24.3-36.9); Protime INR 1.25
--- NOTE | 2024-03-15 11:51 | RAD REPORT ---
EXAM DESCRIPTION: RADChest Single View03/15/2024 11:43 am CLINICAL HISTORY: Abnl labs COMPARISON: Chest Single View dated 02/21/2024 TECHNIQUE: Portable AP view of the chest. FINDINGS: The lungs are clear. No pneumothorax or effusion. Mild cardiomegaly again seen. Mediastin al contours are unremarkable. Left chest wall pacer in place. IMPRESSION: No acute cardiopulmonary process.
--- NOTE | 2024-03-15 14:16 | EDPHYS ---
Physician Documentation [facility] Name: Stella Boston Age: 78 yrs Sex: Female : 1945 Arrival Date: 03/15/2024 Time: 10:18 Bed 4 Private MD: ED Physician Ilya Guerrero HPI: 03/15 14:16 This 78 yrs old Female presents to ER via EMS with complaints of Abnormal Lab Results. bo1 10:38 Pt was sent from [facility] for abnormal labs. Recently finished abx bo1 for a UTI. Hx of CKD. Pt's mental status is baseline A\T\O x 1. No fever. PCP: Dr Paco FIELDS. 13:49 Onset: The symptoms/episode began/occurred today. bo1 13:49 Labs and documentation (OCT) from [facility] with the pt. Creatinine was 3.54 and BUN bo1 \T\ 35. Calcium \T\ 6.9. Historical: - Allergies: 10:48 Iodine; ar6 10:48 Sulfa (Sulfonamide Antibiotics); ar6 10:48 Tositumomab Analogues; ar6 - PMHx: 10:48 Alzheimer's disease; Anxiety; Anemia; Atrial fibrillation; Asthma; Chronic Diastolic ar6 CHF; Chronic obstructive lung disease; CKD stage 3; Dementia; GERD; Hypokalemia; insomnia; Hypothyroidism; Presbyopia; Major Depressive Disorder; vitamin d deficiency; - PSHx: 10:48 Cardiac Pacemaker; Intraocular Lens; ar6 - Immunization history:: Adult Immunizations up to date. - Infectious Disease History:: Denies. - Social history:: Smoking status: unknown. ROS: 13:50 Unable to obtain ROS due to NH pt that cannot give ROS to questions, bo1 14:16 Constitutional: NH report was negative bo1 Exam: 14:05 Constitutional: This is an bed-ridden obese pt that is awake, alert, and in no acute bo1 distress. 14:05 Constitutional: The patient appears in no acute distress, alert, awake, obese, 14:05 ECG was reviewed by the Attending Physician. 14:05 Respiratory: the patient does not display signs of respiratory distress, Respirations: normal, Breath sounds: decreased breath sounds, 14:05 Musculoskeletal/extremity: Calves: No cords, color normal, 14:05 Skin: Appearance: Anterior skin intact, 14:05 Neuro: seizure activity, is not displayed by the patient, Baseline alertness and no distress, Vital Signs: 10:39 BP 150 / 46; Pulse 95; Resp 20; Pulse Ox 96% on 2 lpm NC; ld1 11:29 BP 128 / 63; Pulse 60; Resp 16; Temp 98.1; Pulse Ox 97% on 2 lpm NC; ar6 11:37 BP 128 / 63; Pulse 75; Resp 16; Pulse Ox 100% on 2 lpm NC; ar6 13:02 BP 115 / 49; Pulse 66; Resp 21; Pulse Ox 99% on 2 lpm NC; ld1 14:14 BP 135 / 97; Pulse 95; Resp 20; Pulse Ox 96% 2 lpm ; ar6 MDM: 10:26 Patient medically screened. bo1 13:56 Differential Diagnosis altered mental status, sepsis, UTI, new onset CKD, worsening bo1 BUN/CREAT. Data reviewed: vital signs, lab test result(s), CBC, electrolytes, urinalysis, radiologic studies, plain films. 13:58 Management of patient was discussed with the following: Primary Care Provider: Dr Danial Antonio MD ([place] doctor for the pt) \T\ 1:40pm, PCP consulted with the [facility] who saw the pt today, labs reviewed. Noted: K was 5.2. Today: K \T\ 5.2 BUN/CREAT: 40/3.38, GFR at 13. Stage 5 Kidney disease agreed upon. Plan is to return to [place] and consult nephrology and add calcium to daily regimen. Pt has received rocephin and meropenem (finished course 03/06). External Records Reviewed: [place] records from [facility]. ED course: Pt's labs were repeated and ran by the PCP and [facility]. Plan is to return pt to the [place].. 03/15 10:30 Order name: CBC with Diff; Complete Time: 12:30 bo1 03/15 10:30 Order name: CMP; Complete Time: 12:30 bo1 03/15 10:30 Order name: Lactate w/ 2H reflex if indic.; Complete Time: 12:30 bo1 03/15 10:30 Order name: Protime (+inr); Complete Time: 12:30 bo1 03/15 10:30 Order name: Ptt, Activated; Complete Time: 12:30 bo1 03/15 10:30 Order name: Urinalysis w/ reflexes; Complete Time: 12:30 bo1 03/15 10:30 Order name: LDH; Complete Time: 12:30 bo1 03/15 10:51 Order name: Urine Culture EDVA 03/15 10:30 Order name: Chest Single View XRAY; Complete Time: 12:30 bo1 03/15 10:30 Order name: EKG; Complete Time: 10:31 bo1 03/15 10:30 Order name: Accucheck; Complete Time: 10:44 bo1 03/15 10:30 Order name: Cardiac monitoring; Complete Time: 10:38 bo1 03/15 10:30 Order name: EKG - Nurse/Tech; Complete Time: 11:05 bo1 03/15 10:30 Order name: IV Saline Lock - Large Bore; Complete Time: 10:37 bo1 03/15 10:30 Order name: Labs collected and sent; Complete Time: 10:44 bo1 03/15 10:30 Order name: O2 Per Protocol; Complete Time: 10:37 bo1 03/15 10:30 Order name: O2 Sat Monitoring; Complete Time: 10:37 bo1 03/15 10:30 Order name: Vital Signs; Complete Time: 10:44 bo1 EC:05 Rate is 67 beats/min. Rhythm is irregularly irregular. Left axis deviation noted. bo1 Clinical impression: Abnormal EKG without significant change and Suggests hypocalcemia. Interpreted by me. Reviewed by me. Administered Medications: No medications were administered Disposition Summary: 03/15/24 14:15 Discharge Ordered Notes: Location: [facility]irement bo1 Problem: new bo1 Symptoms: are unchanged bo1 Condition: Stable bo1 Diagnosis - End stage renal disease bo1 - Hyperkalemia bo1 - Hypocalcemia bo1 Followup: bo1 - With: Private Physician - When: - Reason: Continuance of care Forms: - Medication Reconciliation Form bo1 - Antibiotic Education bo1 - Prescription Opioid Use bo1 - Patient Portal Instructions bo1 - Leadership Thank You Letter bo1 Signatures: Dispatcher [employer] Ilya Hatch MD MD bo1 Carin Jarrell RN RN ar6 Corrections: (The following items were deleted from the chart) 10:31 10:31 CBC+H.LAB.BRZ ordered. EDMS EDMS 10:31 10:31 COMPREHENSIVE METABOLIC PANEL+C.LAB.BRZ ordered. EDMS EDMS 10:31 10:31 LACTATE+C.LAB.BRZ ordered. EDMS EDMS 10:31 10:31 PROTIME (+INR)+COAG.LAB.BRZ ordered. EDMS EDMS 10:31 10:31 PTT, ACTIVATED+COAG.LAB.BRZ ordered. EDMS EDMS 10:31 10:31 Urinalysis+U.LAB.BRZ ordered. EDMS EDMS 10:31 10:31 LACTIC DEHYDROGENASE+C.LAB.BRZ ordered. EDMS EDMS 10:31 10:31 Chest Single View+RAD.RAD.BRZ ordered. EDMS EDMS
--- NOTE | 2024-03-15 14:16 | ER ---
[facility] Name: Stella Boston Age: 78 yrs Sex: Female : 1945 Arrival Date: 03/15/2024 Time: 10:18 Bed 4 Private MD: Diagnosis: End stage renal disease;Hyperkalemia;Hypocalcemia Presentation: 03/15 10:47 Chief complaint: EMS states: abnormal labs, recent UTI. Coronavirus screen: Client ar6 denies travel out of the [place] in the last 14 days. At this time, the client does not indicate any symptoms associated with coronavirus-19. Ebola Screen: Patient negative for fever greater than or equal to 101.5 degrees Fahrenheit, and additional compatible Ebola Virus Disease symptoms Patient denies exposure to infectious person. Patient denies travel to an Ebola-affected area in the 21 days before illness onset. No symptoms or risks identified at this time. Initial Sepsis Screen: Does the patient meet any 2 criteria? No. Patient's initial sepsis screen is negative. Does the patient have a suspected source of infection? No. Patient's initial sepsis screen is negative. Risk Assessment: Do you want to hurt yourself or someone else? Patient reports no desire to harm self or others. Onset of symptoms was March 15, 2024. 10:47 Method Of Arrival: EMS: [facility] ar6 10:47 Acuity: AMANDEEP 3 ar6 Triage Assessment: 10:48 General: Appears in no apparent distress. comfortable, Behavior is calm, cooperative. ar6 Pain: Denies pain. Historical: - Allergies: 10:48 Iodine; ar6 10:48 Sulfa (Sulfonamide Antibiotics); ar6 10:48 Tositumomab Analogues; ar6 - PMHx: 10:48 Alzheimer's disease; Anxiety; Anemia; Atrial fibrillation; Asthma; Chronic Diastolic ar6 CHF; Chronic obstructive lung disease; CKD stage 3; Dementia; GERD; Hypokalemia; insomnia; Hypothyroidism; Presbyopia; Major Depressive Disorder; vitamin d deficiency; - PSHx: 10:48 Cardiac Pacemaker; Intraocular Lens; ar6 - Immunization history:: Adult Immunizations up to date. - Infectious Disease History:: Denies. - Social history:: Smoking status: unknown. Screenin:50 [facility] ED Fall Risk Assessment (Adult) History of falling in the last 3 months, ar6 including since admission No falls in past 3 months (0 pts) Confusion or Disorientation Yes (5 pts) Intoxicated or Sedated No (0 pts) Impaired Gait Yes (1 pt) Mobility Assist Device Used Yes (1 pt) Altered Elimination No (0 pt) Score/Fall Risk Level 3 or more points = High Risk Oriented to surroundings, Maintained a safe environment, Educated pt \T\ family on fall prevention, incl call for assistance when getting out of bed, Assessed \T\ reinforced patient's understanding of fall precautions, Provided non-skid footwear, Hourly rounding (assess needs \T\ fall precautionary measures) done. Abuse screen: Denies threats or abuse. Denies injuries from another. Nutritional screening: No deficits noted. Tuberculosis screening: No symptoms or risk factors identified. Assessment: 10:38 Reassessment: Called phlebotomy for assistance with blood draw. Charge nurse got IV ld1 access , unable to draw all labs at this time. 10:49 Reassessment: Patient appears in no apparent distress at this time. No changes from ar6 previously documented assessment. see triage assessment. 13:30 Reassessment: Patient appears in no apparent distress at this time. No changes from ar6 previously documented assessment. 14:44 Reassessment: contacted [facility], spoke with [facility] and transferred to [facility]; ar6 [facility] will call back when transport is arranged to [place] pt. Vital Signs: 10:39 BP 150 / 46; Pulse 95; Resp 20; Pulse Ox 96% on 2 lpm NC; ld1 11:29 BP 128 / 63; Pulse 60; Resp 16; Temp 98.1; Pulse Ox 97% on 2 lpm NC; ar6 11:37 BP 128 / 63; Pulse 75; Resp 16; Pulse Ox 100% on 2 lpm NC; ar6 13:02 BP 115 / 49; Pulse 66; Resp 21; Pulse Ox 99% on 2 lpm NC; ld1 14:14 BP 135 / 97; Pulse 95; Resp 20; Pulse Ox 96% 2 lpm ; ar6 ED Course: 10:25 Patient arrived in ED. ld1 10:26 Ilya Guerrero MD is Attending Physician. bo1 10:38 Urinalysis w/ reflexes Sent. ld1 10:38 Inserted saline lock: 22 gauge in left ,using aseptic technique. shoulder. ap3 10:44 Carin Jarrell, RN is Primary Nurse. ar6 10:44 Urinalysis w/ reflexes Sent. ld1 10:45 CBC with Diff Sent. ar6 10:45 CMP Sent. ar6 10:46 Protime (+inr) Sent. ar6 10:46 Ptt, Activated Sent. ar6 10:48 Triage completed. ar6 10:50 IV is patent, is intact, with fluids infusing freely, with good blood return. ar6 10:50 Patient has correct armband on for positive identification. Placed in gown. Bed in low ar6 position. Call light in reach. Side rails up X2. 10:52 Urine Culture Sent. ar6 10:52 LDH Sent. ar6 11:05 EKG done, by ED staff, reviewed by Ilya Guerrero MD. em1 11:45 Chest Single View XRAY In Process Unspecified. EDMS 13:[address] Almazan answering service to have him call Dr Guerrero. bd 13:[address] Antonio. bd 15:25 No provider procedures requiring assistance completed. IV discontinued, intact, ld1 bleeding controlled, No redness/swelling at site. 15:25 Arm band placed on right wrist. ld1 Administered Medications: No medications were administered Medication: 15:25 VIS not applicable for this client. ld1 Outcome: 14:15 Discharge ordered by . bo1 15:25 Discharged to home ambulatory, ld1 15:25 Condition: stable 15:25 Discharge instructions given to patient, Instructed on discharge instructions, follow up and referral plans. Demonstrated understanding of instructions, follow-up care, 15:26 Patient left the ED. ld1 Signatures: Dispatcher [employer] EDMS Randa Robison Eric em1 Nancy Romano RN RN ap3 Yas Anthony RN RN ld1 Ilya Guerrero MD MD boCarin Chadwick, RN RN ar6 Corrections: (The following items were deleted from the chart) 11:38 11:29 BP 128 / 63; Pulse 60bpm; Resp 16bpm; Pulse Ox 97% RA; Temp 98.1F; ar6 ar6
[2024-03-15 15:32] VITALS: TEMP 98.1
[2024-03-15 15:36] VITALS: BP 135/97; O2SAT 96
--- NOTE | 2024-03-16 14:10 | EKG ---
Test Date: 2024-03-15 Test Time: 10:52:29 Groundskeeping Yardman: Benji REYES MEASUREMENT RESULTS: Intervals: Rate: 67 WA: QRSD: 142 QT: 480 QTc: 507 Elton: P: WA: QRS: -63 T: 129 INTERPRETIVE STATEMENTS: Undetermined rhythm Left axis deviation Left bundle branch block Abnormal ECG No previous ECG available for comparison Electronically Signed On 03-16-24 14:05:57 CDT by Beltran Herrmann
== END 2024-03-15 15:26 ==
LOC: ER 10:18
DX: E87.5 Hyperkalemia (principal); E83.51 Hypocalcemia; N18.6 End stage renal disease; I13.2 Hypertensive heart and chronic kidney disease with heart failure and with stage 5 chronic kidney disease, or end stage renal disease; I50.32 Chronic diastolic (congestive) heart failure; I50.9 Heart failure, unspecified; Z99.2 Dependence on renal dialysis; G30.9 Alzheimer's disease, unspecified; F02.80 Dementia in other diseases classified elsewhere, unspecified severity, without behavioral disturbance, psychotic disturbance, mood disturbance, and anxiety
CPT/HCPCS: 36415; 71045; 80053; 81001; 83605; 83615; 85025; 85610; 85730; 87086; 87088; 93005; 99284

== ENCOUNTER 2024-05-01 05:17 | Inpatient (IN) | payer OTHER ==
--- OUTSIDE RECORDS SUMMARY | 2024-05-01 05:19 | XMS REPORT | Continuity of Care Document ---
Author Name Unknown Address [address] [facility] [address] [facility] Address [address] [facility] 1 [address] [place] [address] Care Team Providers Care Solution Sales Senior Executive Name Role Phone [phone] Attending Clinician Unavailable LUDIN PEREZ Attending Clinician Unavailable LINDA BLANCA Attending Clinician Unavailable JAKE BRICENO Attending Clinician Unav[place]renton peralta [id number] Admitting Clinician Unavailable LUDIN PEREZ Admitting Clinician Unavailable LINDA BLANCA Admitting Clinician Unavailable JAKE BRICENO Admitting Clinician UnavailGIANLUCA Watt Admitting Clinician Unavailable JOSE MARIA LINN Admitting Clinician Unavailable Payers Payer Name Policy Type Policy Number Effective Date Expirati on Date Source [facility] [id number] [facility] [id number] Problems Condition Name Condition Details Condition Category [...] 300 MG Oral Capsule Yes 300mg 2xD [facility] (LUF/LI V/SA) doxycycline doxycycline Yes 100mg 2xD [facility] (LUF/LI V/SA) Vital Signs Vital Name Observation Time Observation Value Comments Zahira calero Height 2020-07-28 15:55:00 152.4 CM Weight 2020-07-28 15:55:00 136.07 KG Pulse Rate 2020-07-28 17:20:00 79 /min [facility] (LUF/RAY/SA) Respiratory Rate 2020-07-28 17:20:00 22 /min [facility] (F/RAY/SA) O2% BldC Oximetry 2020-07-28 17:20:00 95 % [facility] (F/RAY/SA) BP Systolic 2020-07-28 16:16:00 117 mm[Hg] [facility] (LUF/RAY/SA) BP Diastolic 2020-07-28 16:16:00 51 mm[Hg] [facility] (F/RAY/SA) Body Temperature 2020-07-28 15:55:00 97.1 [degF] [facility] (F/RAY/SA) Height 2020-07-28 15:55:00 60 [in_i] [facility] (F/RAY/SA) Weight 2020-07-28 15:55:00 300 [lb_av] [facility] (F/RAY/SA) BMI (Body Mass Index) 2020-07-28 15:55:00 58.8 kg/m2 [facility] (F/RAY/SA) Weight Measured 2017-11-21 11:53:00 375 lbs [facility] (F/RAY/SA) Body Temperature 2017-11-21 11:53:00 98.2 F [facility] (F/RAY/SA) Respiratory Rate 2017-11-21 11:53:00 26 /min [facility] (F/RAY/SA) O2% BldC Oximetry 2017-11-21 11:53:00 97 % [facility] (LUF/RAY/SA) BP Systolic 2017-11-21 11:53:00 120 mm[Hg] [facility] (LUF/RAY/SA) BP Diastolic 2017-11-21 11:53:00 81 mm[Hg] [facility] (LUF/RAY/SA) Weight Measured 2017-10-20 17:37:00 326.28 lbs [facility] (LUF/RAY/SA) Body Temperature 2017-10-20 17:35:00 98.9 F [facility] (LUF/RAY/SA) Respiratory Rate 2017-10-20 17:35:00 20 /min [facility] (LUF/RAY/SA) O2% BldC Oximetry 2017-10-20 17:35:00 98 % [facility] (LUF/RAY/SA) BP Systolic 2017-10-20 17:35:00 119 mm[Hg] [facility] (LUF/RAY/SA) BP Diastolic 2017-10-20 17:35:00 49 mm[Hg] [facility] (LUF/RAY/SA) Height 2017-10-20 17:35:00 63 in [facility] (LUF/RAY/SA) BMI (Body Mass Index) 2017-10-20 17:35:00 57.8 [facility] (LUF/RAY/SA) Encounters Start Date/Time End Date/Time Encounter Type Admission Type Attending [facility] Care Facility Care Department Encounter ID Source 2021-09-03 11:17:09 Outpatient 3 [id number] [facility] [id number] [facility] [place] 2021-09-03 11:13:00 Outpatient 3 [id number] [facility] REF [id number] [facility] [place] 2020-07-28 15:47:00 2020-07-28 19:22:00 CELLULITIS OF RIGHT LOWER LIMB E LUDIN PEREZ [facility] N, [address], [facility] [place] [address] [facility] [id number] [facility] 2020-07-28 00:00:00 2020-07-28 00:00:00 Inpatient [facility] [place], [address], [place] [address] [facility] [id number] [facility] (LUF/LI V/SA) 2020-07-28 00:00:00 2020-07-28 00:00:00 Inpatient [facility] [place], [address], [place] [address] [facility] [id number] [facility] (LUF/LI V/SA) 2018-02-28 10:36:00 2018-02-28 23:59:00 ENC THERAPEUTC DRUG LEVL MONITORING O LINDA BLANCA [facility], [address] [place] [address] [facility] [id number] [facility] (LUF/LI V/SA) 2018-02-22 15:25:00 2018-02-22 23:59:00 ENC THERAPEUTC DRUG LEVL MONITORING O LINDA BLANCA [facility], [address] [facility] [place] [address] [facility] [id number] [facility] (LUF/LI V/SA) 2018-02-16 12:33:00 2018-02-16 23:59:00 ENC THERAPEUTC DRUG LEVL MONITORING O LINDA BLANCA [facility], [address] [facility] [place] [address] [facility] [id number] [facility] (LUF/LI V/SA) 2017-12-16 13:59:00 2017-12-16 23:59:00 PERS HX OTH VENOUS THROMBOSIS &EMBO O JAKE BRICENO [facility], [address] [facility] [place] [address] [facility] [id number] [facility] (LUF/LI V/SA) 2017-12-02 14:16:00 2017-12-02 23:59:00 ENC THERAPEUTC DRUG LEVL MONITORING O JAKE BRICENO [facility], [address] [place] [address] [facility] [id number] [facility] (LUF/LI V/SA) 2017-11-21 11:42:00 2017-11-21 14:50:00 COPD UNSPECIFIE D E GIANLUCA LACEY [facility], [address] [place] [address] [facility] [id number] [facility] (LUF/LI V/SA) 2017-10-20 17:27:00 2017-10-20 23:00:00 SPRAIN UNS LIGAMENT LT ANKLE INIT E JOSE MARIA LINN [facility], [address] [place] [address] [facility] [id number] [facility] (LUF/LI V/SA) Results Test Description Test Time Test Comments Results Result Co mments [facility] CEPHEID [id number] 17:52:00* Test Item Value Reference Range Interpretation Comme nts FT (test code = COVID) Negative (qualifier value) The Pura Naturalsed SARS-CoV -2 reagent is for in vitro use under FDA Emergency Use Authorization only. For questions regarding your test results, please contact the Coronavirus Call Center at [phone]. IN-HOUSE TESTINGThe[facility] ShawanoXR CHEST AP/PA 1 VIEW 2020-07-28 17:50:44 [facility] ([facility]SA[facility]Name: SARAVANAN LAN : [id number] Sex: FEXAM: XR CHEST AP/PA 1 VIEWINDICATION: [id number]: DyspneaCOMPARISON: NoneFINDINGS:One frontal imageobtained.MEDICAL DEVICES: NoneLUNGS: Changes [...] 5:44 PMDictated By: CHRISTO BORRERODate: 07/28/2020 17:44[facility] [id number] 17:19:00* Test Item Value Reference Range Interpretation [...] assessment and management of chronic kidney failure. [facility] ShawanoTROPONIN-I [id number] 17:15:00* Test Item Value Reference Range Interpretation Comme nts Troponin-I (test code = TROP) <0.015 ng/ml 0.000-0.034 N The 99th Percent ile URL is 0.045 ng/mL for the Siemens Taft Troponin I. The Joint Society of Cardiology/[place] College of Cardiology (ESC/ACC) and the National [...] first 24 hours after the clinical event. [facility] ShawanoPRO-BNP(B-Type Natriuretic Peptide)2020-07-28 17:15:00* Test Item Value Reference Range Interpretation Comme nts Pro-BNP(B-Peptide) (test cod e = PROBNP) 706 pg/ml 0-125 H [facility] WITH AUTO [id number] 16:58:00* Test Item Value Reference Range Interpretation [...] (test code = IG%) 0.2 % 0.0-0.4 [facility] AND [id number] 12:17:00* Test Item Value Reference Range Interpretation Comme nts Protime (test code = PT) 12.0 seconds 9.0-11.9 H INR (test code = INR) 1.2 0.9-1.1 H INR results are intended ONLY to monitor Oral Anticoagulant therapy in stablized patients. The INR Therapeutic Range is 2.0 - 3.0 Patients with a mechanical heart, the INR Range is 2.5 - 3.5 [facility] AND [id number] 15:53:00* Test Item Value Reference Range Interpretation Comme nts Protime (test code = PT) 32.3 seconds 9.0-11.9 H INR (test code = INR) 3.1 0.9-1.1 H INR results are intended ONLY to monitor Oral Anticoagulant therapy in stablized patients. The INR Therapeutic Range is 2.0 - 3.0 Patients with a mechanical heart, the INR Range is 2.5 - 3.5 [facility] [id number] 15:02:00* Test Item Value Reference Range Interpretation [...] - 3.5 Critical values were called to [facility] by [id number] on 02/16/2018 15:02 PM. Results were read back by [facility]. [facility] AND [id number] 15:35:00* Test Item Value Reference Range Interpretation Comme nts Protime (test code = PT) 14.0 seconds 9.0-11.9 H INR (test code = INR) 1.4 0.9-1.1 H INR results are intended ONLY to monitor Oral Anticoagulant therapy in stablized patients. The INR Therapeutic Range is 2.0 - 3.0 Patients with a mechanical heart, the INR Range is 2.5 - 3.5 [facility] AND [id number] 16:08:00* Test Item Value Reference Range Interpretation Comme nts Protime (test code = PT) 19.8 seconds 9.0-11.9 H INR (test code = INR) 1.9 0.9-1.1 H INR results are intended ONLY to monitor Oral Anticoagulant therapy in stablized patients. The INR Therapeutic Range is 2.0 - 3.0 Patients with a mechanical heart, the INR Range is 2.5 - 3.5 [facility]TT2018-04-[facility] 14:31:00* Test Item Value Reference Range Interpretation Comme nts aPTT (test code = PTT) 30.5 seconds 23.0-33.0 [address]LufkinPT AND [id number] 14:31:00* Test Item Value Reference Range Interpretation Comme nts Protime (test code = PT) 14.8 seconds 9.0-11.9 H INR (test code = INR) 1.4 0.9-1.1 H INR results are intended ONLY to monitor Oral Anticoagulant therapy in stablized patients. The INR Therapeutic Range is 2.0 - 3.0 Patients with a mechanical heart, the INR Range is 2.5 - 3.[address]-[id number] 12:53:00* Test Item Value Reference Range Interpretation [...] and management of chronic kidney failure. er [address] [place] [address]-[place]ufkinXR CHEST AP/PA 1 [id number] 12:42:32er 18 Procedure: AP View ChestOrder date: [...] PMDictated By: ENRIQUETA NICHOLASDate: 11/21/2017 12:42[facility] WITH AUTO [id number] 12:24:00* Test Item Value Reference Range Interpretation [...] = IG%) 0.5 % 0.0-0.[address] [place] [address]-[facility], [id number] 06:14:00ER T2 ER T2 needs in and [...] <=1 S Trimeth/Sulfa <=20 S ESBL Negative -[facility]ufkinURINALYSIS WITH MICROSCOPIC 2017-10-20 22:13:00* Test Item Value Reference Range Interpretation Comme nts Color (test code = UCOLR) YELLOW Clarity (test code = UCLAR) CLEAR Glucose (test code = UGLUC) NEGATIVE NEGATIVE N Bilirubin (test code = UBILI) NEGATIVE NEGATIVE N Ketones (test code = UKET) TRACE NEGATIVE A Specific [place] (test code = USPGR) 1.025 1.005-1.030 A [...] in and out cath for [facility] AND [id number] 20:16:00* Test Item Value Reference Range Interpretation Comme nts Protime (test code = PT) 15.4 seconds 9.0-11.9 H INR (test code = INR) 1.5 0.9-1.1 H INR results are intended ONLY to monitor Oral Anticoagulant therapy in stablized patients. The INR Therapeutic Range is 2.0 - 3.0 Patients with a mechanical heart, the INR Range is 2.5 - 3.5 er [address]TT2018-03-15 20:16:00* Test Item Value Reference Range Interpretation Comme nts aPTT (test code = PTT) 29.1 seconds 23.0-33.[address]-[id number] 20:07:00* Test Item Value Reference Range Interpretation [...] assessment and management of chronic kidney failure. [address]-[place]ufkinCBC WITH AUTO [id number] 19:58:00* Test Item Value Reference Range Interpretation [...] code = IG%) 0.3 % 0.0-0.[address]-[id number] 19:58:00* Test Item Value Reference Range Interpretation Comme nts CPK (test code = CPK) 70 U/L 30-[address]-[place]kinCT ABDOMEN/PELVIS W/O [id number] 19:57:57er t-2Procedure: CT ABDOMEN/PELVIS W/O CONTRASTOrder Date: [...] By: DAMIAN CHAUHANDate: 10/20/2017 19:57 [facility] CHEST W/O [id number] 19:48:26er t-2Procedure: CT CHEST W/O CONTRASTOrder Date: [...] PMDictated By: DAMIAN CHAUHANDate: 10/20/2017 19:48[facility]ED RAPID [id number] 19:48:00* Test Item Value Reference Range Interpretation Comme nts B-PEPTIDE (BIOSITE) (test co de = BIOBNP) 95.2 pg/ml 0.0-100.0 SERIAL INSTRUMENT NUMBER (te st code = SERIAL) [id number] [facility]kinED RAPID [id number] 19:48:00* Test Item Value Reference Range Interpretation Comme nts CKMB (BIOSITE) (test code = BIOCKMB) 2.1 ng/ml 0.0-2.5 TROPONIN-I (BIOSITE) (test c ode = BIOTROP) <0.050 ng/ml 0.000-0.050 N MYOGLOBIN (BIOSITE) (test co de = BIOMYO) 165.0 ng/ml 0.0-170.0 SERIAL INSTRUMENT NUMBER (te st code = SERIAL) [id number] [facility]XR KNEE 1-2 [id number] 19:44:36er t-2Procedure: XR KNEE 1-2 VWSOrder Date: 10/20/2017 4:18 PMOrdering Provider: DR JOSE MARIA eLyinicalIndication: Fall, injury, painComparison: NoneFINDINGS:There is no fracture [...] PMDictated By: DAMIAN CHAUHANDate: 10/20/2017 19:44[facility]XR KNEE 1-2 [id number] 19:43:36er t-2Procedure: XR KNEE 1-2 VWSOrder Date: [...] PMDictated By: AMY CHAUHAN.Date: 10/20/2017 19:43[facility] CERVICAL SPINE W/O [id number] 19:39:25er t-2Procedure: CT CERVICAL SPINE W/O CONTRASTOrder [...] PMDictated By: DAMIAN CHAUHANDate: 10/20/2017 19:39[facility] FOOT COMP MIN 3 [id number] 19:35:45er t-2 Procedure: XR FOOT COMP MIN [...] PMDictated By: DAMIAN CHAUHAN.Date: 10/20/2017 19:35[facility] [place] HEAD W/O CONTRAST 2017-10-20 19:32:45er t-2Procedure: CT HEAD W/O CONTRASTOrder Date: 10/20/2017 4:16 PMOrdering Provider: DR JOSE MARAI Leyinical Indication: Fall, injury, painComparison: NoneTechnique: Using [...] 10/20/20177:26 PMDictated By:DAMIAN CHAUHANDate: 10/20/2017 19:32[facility] ANKLE COMP MIN 3 [id number] 19:28:24er t-2Procedure: XR ANKLE COMP MIN 3 [...] By: DAMIAN CHAUHAN.Date: 10/20/2017 19:28[facility] AND [id number] 16:47:00* Test Item Value Reference Range Interpretation Comme nts Protime (test code = PT) 10.0 seconds 9.0-11.9 INR (test code = INR) 1.0 0.9-1.1 INR results are intended ONLY to monitor Oral Anticoagulant therapy in stablized patients. The INR Therapeutic Range is 2.0 - 3.0 Patients with a mechanical heart, the INR Range is 2.5 - 3.5 [facility] Notes Date/Time Note Provider Source 2017-10-20 23:00:00 [...] Rx at bedside. Macrobid called in to [facility] pharmacy and notified daughter of Rx. Printed and given to patient/caregiver. Patient Teaching Patient education provided [facility] ([facility]/RAY/SA)
[2024-05-01 06:14] LABS: Absolute Basophils 0.1 K/uL (0-0.5); Absolute Eosinophils 0.1 K/uL (0-0.5); Absolute Lymphocytes (CBC) 2.1 K/uL (0.7-4.9); Absolute Monocytes 0.7 K/uL (0.1-1.3); Absolute Neutrophil 2.1 K/uL (1.8-8.0); Basophils % 1.2 % (0-1.3); Eosinophils % 2.2 % (0-4.4); Hematocrit 26.8 % (36.0-45.0); Hemoglobin 8.8 g/dL (12.0-15.0); Lymphocytes % 41.5 % (15.3-44.8); MCH 31.6 pg (27.0-35.0); MCV 95.8 fL (80-100); MPV 8.1 fL (7.6-11.3); Monocytes % 13.3 % (3.3-12.3); Neutrophils % 41.8 % (41.7-73.7); Nucleated Red Blood Cells % 0.1 % (0-0); Platelets 96 thou/uL (152-406); Red Cell Distribution Width 15.7 % (12.1-15.2)
[2024-05-01 06:17] LABS: PT Prothrombin Time 14.1 SECONDS (9.4-12.5); Protime INR 1.27
[2024-05-01 06:26] LABS: Albumin 1.8 g/dL (3.4-5.0); Albumin/Globulin Ratio 0.5 (1.1-1.8); Anion Gap 7.1 mEq/L (5.0-15.0); Bilirubin Total 0.4 mg/dL (0.2-1.0); Globulin 3.3 g/dL (2.3-3.5); Potassium 4.1 mEq/L (3.5-5.1); Protein, Total 5.1 g/dL (6.4-8.2)
--- NOTE | 2024-05-01 06:32 | RAD REPORT ---
EXAM DESCRIPTION: Chest Single View CLINICAL HISTORY: ams COMPARISON: None TECHNIQUE: Single AP view of the chest. FINDINGS: Left-sided cardiac conduction device. Lung volumes adequate. Cardiac silhouette is enlarged. No pneumothorax. Probable small bilateral effusions. Mild bilateral interstitial thickening. No focal consolidation. No acute bony finding. IMPRESSION: 1. Mild bilateral interstitial thickening, could represent mild pulmonary edema. 2. Probable small bilateral effusions. 3. Enlarged cardiac silhouette. Electronically signed by: Gabbi Ford MD 05/01/2024 06:23 AM [facility] Z9 Due to temporary technical issues with the PACS/IRL Connect reporting system, reports are being jared d by the in-house radiologist without review as a courtesy to ensure prompt reporting the interpreting radiologist is fully responsible for the content of the report. Transcribed Date/Time: 05/01/2024 6:31 AM
[2024-05-01 07:21] LABS: Platelet Estimate DECR; White Blood Cell Scan OK (OK)
[2024-05-01 07:22] LABS: Blood Morphology Comment NOT SEEN (NOT SEEN)
--- NOTE | 2024-05-01 07:32 | RAD REPORT ---
EXAM: CT brain without contrast HISTORY: Headache, drowsiness COMPARISON: 02/21/2024 TECHNIQUE: Multiple contiguous axial images were obtained and a CT of the brain without contrast. Sag ittal and coronal reformats were performed. FINDINGS: No evidence of hydrocephalus, intracranial hemorrhage, or extra-axial fluid collection. Moderate brain atrophy with moderate periventricular and deep white matter chronic microvascular isc hemic changes present. No evidence of midline shift or areas of brain edema. The calvarium is intact. The visualized paranasal sinuses and mastoid air cells are essentially clear . Significant carotid atherosclerosis seen. IMPRESSION: No evidence of acute intracranial abnormality.
--- NOTE | 2024-05-01 07:51 | EDPHYS ---
Physician Documentation [facility] Name: Stella Boston Age: 78 yrs Sex: Female : 1945 Arrival Date: 05/01/2024 Time: 05:17 Bed 7 Private MD: ED Physician Gaurav Anthony HPI: 05/01 05:22 This 78 yrs old Female presents to ER via Unassigned with complaints of ALTERED MENTAL sp3 STATUS. 05:22 78-year-old female history of atrial fibrillation, CHF, COPD, anemia presents from [facility] senior living for altered mental status. We called the senior living and they state that she is more difficult to arouse than normal. Her Lasix has also been held due to a nephrology appointment tomorrow. She finished Levaquin yesterday for a urinary tract infection. They also state that her blood pressure is chronically low. No history from patient or further history from EMS. Review of systems, history and physical severely limited due to the above constraints and baseline dementia coupled with altered mental status.. Historical: - Allergies: 06:33 Iodine; br2 06:33 Sulfa (Sulfonamide Antibiotics); br2 06:33 Tositumomab Analogues; br2 - Immunization history:: unknown. - Infectious Disease History:: per senior living paperwork - NO. - Social history:: pt has aphasia, Smoking status: unknown. ROS: 05:27 Unable to obtain ROS due to altered mental status, baseline dementia, sp3 Exam: 05:27 Constitutional: The patient appears Severely limited physical. Patient is abdomen sp3 soft. Vital signs are pending. However EMS vital signs demonstrate blood pressure 97 systolic and normal otherwise. Temperature pending. Patient does not appear to be any distress and moans to verbal stimulation. No gross focal deficits noted. No obvious cardiopulmonary abnormalities on gross exam. 05:27 Unable to obtain exam due to altered mental status, baseline dementia, Obesity and body habitus. 05:50 ECG was reviewed by the Attending Physician. EKG demonstrates demand paced rhythm at 98 sp3 bpm with baseline atrial fibrillation versus sinus arrhythmia, left bundle branch block and a QTc of 528 not materially different from prior EKG dated 03/15/2024 Vital Signs: 05:20 BP 100 / 52; Pulse 108; Resp 18 S; Pulse Ox 91% on R/A; Weight 122 kg; br2 05:55 BP 90 / 55; Pulse 100; Pulse Ox 100% on R/A; br2 06:33 BP 91 / 49; Pulse 106; Resp 26; Pulse Ox 95% ; br2 06:54 BP 96 / 65; Pulse 93; Resp 15 S; Pulse Ox 97% on R/A; br2 07:47 BP 150 / 102; Pulse 60; Resp 18; Pulse Ox 95% on R/A; ko1 07:54 BP 99 / 71; Pulse 60; Resp 19; Pulse Ox 94% on 2 lpm NC; ko1 08:30 BP 110 / 81; Pulse 60; Resp 18; Pulse Ox 100% on 2 lpm NC; db 09:30 BP 185 / 138; Pulse 95; Resp 18; Pulse Ox 100% on Nebulizer Mask; db 10:24 BP 141 / 119; Pulse 87; Resp 18; Pulse Ox 100% ; db 09:30 PT MOVING db MDM: 05:18 Patient medically screened. sp3 05:28 Data reviewed: vital signs, nurses notes, old medical records, lab test result(s), EKG, sp3 radiologic studies. ED course: 78-year-old female from senior living with altered mental status. Consider continued UTI/sepsis spectrum, pulmonary edema secondary to Lasix hold, other infection, ACS, among others. Workup will include CT scan of the head, cath urine analysis, laboratory values, chest x-ray and general supportive care with antibiotics and other medications as indicated. Disposition pending workup and patient course.. 07:00 Transition of care: Care assumed from Lux Garcia MD. ms3 07:45 Differential Diagnosis: intracranial bleed, UTI, volume depletion. Consideration of ms3 Admission/Observation Patient was admitted/placed on observation. Management of patient was discussed with the following: Hospitalist: Dr Milsl. I considered the following discharge prescriptions or medication management in the emergency department Medications were administered in the Emergency Department. See MAR. Independent interpretation of the following test(s) in the Emergency Department CT Scan: My interpretation is CT head without contrast images reviewed do not reveal ICH. Historians other than the Patient: EMS: . Counseling: I had a detailed discussion with the patient and/or guardian regarding the historical points, exam findings, and any diagnostic results supporting the discharge/admit diagnosis, lab results, radiology results, the need for further work-up and treatment in the hospital. ED course: Discussed case with medicine team and they accept patient. All questions were answered.. 05/01 05:20 Order name: Blood Culture Adult (2) sp3 05/01 05:20 Order name: CBC with Diff; Complete Time: 07:39 sp3 05/01 05:20 Order name: CMP; Complete Time: 06:49 sp3 05/01 05:20 Order name: Lactate w/ 2H reflex if indic.; Complete Time: 06:49 sp3 05/01 05:20 Order name: Protime (+inr); Complete Time: 06:19 sp3 05/01 05:20 Order name: Ptt, Activated; Complete Time: 06:19 sp3 05/01 05:20 Order name: Urinalysis w/ reflexes sp3 05/01 06:04 Order name: NT PRO-BNP; Complete Time: 06:49 EDMS 05/01 06:59 Order name: Troponin High Sensitivity; Complete Time: 07:39 br2 05/01 07:22 Order name: CBC Smear Scan; Complete Time: 07:39 EDMS 05/01 08:32 Order name: Urine Culture snw 05/01 08:37 Order name: Valproic Acid (Depakene) Level EDMS 05/01 10:01 Order name: T4 Free EDMS 05/01 10:01 Order name: Thyroid Stimulating Hormone EDMS 05/01 10:01 Order name: CBC with Automated Diff EDMS 05/01 10:01 Order name: CBC with Automated Diff EDMS 05/01 10:01 Order name: CBC with Automated Diff EDMS 05/01 10:01 Order name: CBC with Automated Diff EDMS 05/01 10:01 Order name: CBC with Automated Diff EDMS 05/01 10:01 Order name: Comprehensive Metabolic Panel EDMS 05/01 10:01 Order name: Comprehensive Metabolic Panel EDMS 05/01 10:01 Order name: Comprehensive Metabolic Panel EDMS 05/01 10:01 Order name: Comprehensive Metabolic Panel EDMS 05/01 10:01 Order name: Comprehensive Metabolic Panel EDMS 05/01 10:01 Order name: Lipid Profile EDMS 05/01 10:01 Order name: Lipid Profile EDMS 05/01 10:01 Order name: Magnesium EDMS 05/01 10:01 Order name: Magnesium EDMS 05/01 10:01 Order name: Magnesium EDMS 05/01 10:01 Order name: Magnesium EDMS 05/01 10:01 Order name: Magnesium EDMS 05/01 10:01 Order name: Phosphorus EDMS 05/01 10:01 Order name: Phosphorus EDMS 05/01 10:01 Order name: Phosphorus EDMS 05/01 10:01 Order name: Phosphorus EDMS 05/01 10:01 Order name: Phosphorus EDMS 05/01 10:01 Order name: Troponin High Sensitivity EDMS 05/01 10:01 Order name: Troponin High Sensitivity EDMS 05/01 10:01 Order name: Troponin High Sensitivity EDMS 05/01 05:20 Order name: Chest Single View XRAY; Complete Time: 07:39 sp3 05/01 05:20 Order name: CT Head Brain wo Cont; Complete Time: 07:39 sp3 05/01 10:01 Order name: CONS Physician Consult EDMS 05/01 05:20 Order name: Cardiac monitoring; Complete Time: 06:24 sp3 05/01 05:20 Order name: EKG - Nurse/Tech; Complete Time: 06:25 sp3 05/01 05:20 Order name: IV Saline Lock - Large Bore; Complete Time: 06:49 sp3 05/01 05:20 Order name: Labs collected and sent; Complete Time: 06:25 sp3 05/01 05:20 Order name: O2 Per Protocol; Complete Time: 06:25 sp3 05/01 05:20 Order name: O2 Sat Monitoring; Complete Time: 06:25 sp3 05/01 05:20 Order name: Vital Signs; Complete Time: 06:25 sp3 05/01 05:20 Order name: Cath; Complete Time: 09:39 sp3 05/01 08:32 Order name: Arreaga; Complete Time: 09:39 snw Administered Medications: 05:23 CANCELLED (ERROR): ns 0.9% 1000 ml IV at 1 bolus Per protocol; 1000 mL bolus sp3 09:30 Drug: Furosemide IVP 80 mg IVP once; give over 2 minutes Route: IVP; Site: left upper db arm; 10:20 Follow up: Response: No adverse reaction db 09:30 Drug: DuoNeb Nebulize (2.5 mg - 0.5 mg) 3 ml Nebulizer once Route: Nebulizer; db 10:20 Follow up: Response: No adverse reaction db Disposition: 07:52 Chart complete. ms3 Disposition Summary: 05/01/24 07:50 Hospitalization Ordered Notes: Provider: Bhumi Mills ms3 Condition: Stable ms3 Problem: new ms3 Symptoms: are unchanged ms3 Bed/Room Type: Standard ms3 Hospitalization Status: Inpatient Admission(05/01/24 07:50) ms3 Location: Intensive Care Unit(05/01/24 10:09) bd Room Assignment: 7-(05/01/24 10:09) bd Diagnosis - Altered mental status, unspecified ms3 - Heart failure, unspecified ms3 - Acute pulmonary edema ms3 Forms: - Medication Reconciliation Form ms3 - SBAR form ms3 - Leadership Thank You Letter ms3 Signatures: Dispatcher [employer] EDMS Randa Robison Shelly, QUARRY MANAGER-C QUARRY MANAGER-Csnw Gaurav Anthony, DO ms3 Lux Garcia MD MD sp3 Rosalva Caceres, RN RN db Jocelyn Reese, RN RN br2 Corrections: (The following items were deleted from the chart) 05:21 05:21 BLOOD CULTURE*+BA.LAB.BRZ ordered. EDMS EDMS 05:21 05:21 CBC+H.LAB.BRZ ordered. EDMS EDMS 05:21 05:21 COMPREHENSIVE METABOLIC PANEL+C.LAB.BRZ ordered. EDMS EDMS 05:21 05:21 LACTATE+C.LAB.BRZ ordered. EDMS EDMS 05:21 05:21 PROTIME (+INR)+COAG.LAB.BRZ ordered. EDMS EDMS 05:21 05:21 PTT, ACTIVATED+COAG.LAB.BRZ ordered. EDMS EDMS 05:21 05:21 Chest Single View+RAD.RAD.BRZ ordered. EDMS EDMS 05:21 05:21 Head Brain Wo Cont+CT.RAD.BRZ ordered. EDMS EDMS 05:23 05:20 NS 0.9% IV 1000 ml IV at 1 bolus Per protocol; 1000 mL bolus ordered. sp3 sp3 05:27 05:22 78-year-old female history of atrial fibrillation, CHF, COPD, anemia presents sp3 from senior living for altered mental status. . sp3 06:04 05:23 PROBNP+C.LAB.BRZ ordered. EDMS EDMS 06:50 05:21 Urinalysis+U.LAB.BRZ ordered. EDMS EDMS 07:50 07:50 Observation ms3 ms3 08:33 08:33 LAB ADD ON+C.LAB.BRZ ordered. EDMS EDMS 08:33 08:33 Urine Culture+BA.LAB.BRZ ordered. EDMS EDMS 09:35 08:33 Urine Microscopic+U.LAB.BRZ ordered. EDMS EDMS 10: 07:50 Telemetry/MedSurg (Inpatient) ms3 bd 10: 07:50 ms3 bd
--- NOTE | 2024-05-01 07:51 | ER ---
Nurse's Notes [facility] Name: Stella Boston Age: 78 yrs Sex: Female : 1945 Arrival Date: 05/01/2024 Time: 05:17 Bed 7 Private MD: Diagnosis: Altered mental status, unspecified;Heart failure, unspecified;Acute pulmonary edema Presentation: 05/01 05:20 Chief complaint: Patient states: Pt sent to Er from [facility] due to br2 AMS...when EMS asked what her base line is the stated "like this but different". Pt has alzheimers and isn't verbal. 05:20 Coronavirus screen: unknown. Ebola Screen: Unable to complete the Ebola screening br2 because: The patient is disoriented. Initial Sepsis Screen: Does the patient meet any 2 criteria? Temp <36.0*C (96.8*F)) or > 38.3*C (100.9*F). Altered Mental Status. HR > 90 bpm. Does the patient have a suspected source of infection? No. Patient's initial sepsis screen is negative. Risk Assessment: Do you want to hurt yourself or someone else? Unable to obtain. Onset of symptoms was May 01, 2024 at 04:30. 05:20 Method Of Arrival: EMS: [facility] br2 05:20 Acuity: AMANDEEP 3 br2 Triage Assessment: 05:20 General: Appears in no apparent distress. comfortable, obese. General: Behavior is br2 calm, quiet. Pain: Unable to use pain scale. Patient is disoriented. Does not appear to understand pain scale. 06:33 EENT: No deficits noted. Neuro: Andersen Agitation-Sedation Scale (RASS): 0 - Alert and br2 Calm Level of Consciousness is awake, alert, confused, Oriented to none Ham Marker are Speech aphasia. Cardiovascular: Heart tones present. Respiratory: Breath sounds are diminished bilaterally. GI: No deficits noted. Abdomen is round obese. : No deficits noted. purewic inserted. Derm: Skin is Skin is normal, Skin temperature is warm Bruising that is. Musculoskeletal: No deficits noted. Swelling present in right leg and left leg. Injury Description:. Historical: - Allergies: 06:33 Iodine; br2 06:33 Sulfa (Sulfonamide Antibiotics); br2 06:33 Tositumomab Analogues; br2 - Immunization history:: unknown. - Infectious Disease History:: per intermediate paperwork - NO. - Social history:: pt has aphasia, Smoking status: unknown. Screenin:45 [facility] ED Fall Risk Assessment (Adult) History of falling in the last 3 months, br2 including since admission No falls in past 3 months (0 pts) Confusion or Disorientation Yes (5 pts) Intoxicated or Sedated No (0 pts) Impaired Gait Yes (1 pt) Mobility Assist Device Used No (0 pt) Altered Elimination No (0 pt) Score/Fall Risk Level 3 or more points = High Risk. Abuse screen: PT APHASIA. Nutritional screening: No deficits noted. Tuberculosis screening: UNKNOWN. Assessment: 05:30 Reassessment: SEE TRIAGE. br2 06:00 Reassessment: Reassessment: Reassessment: PT BRIEF WAS CLEANED AND PUREWIC WAS PUT IN br2 PLACE, PENDING URINE. 07:16 Reassessment: Patient appears in no apparent distress at this time. Patient and/or db family updated on plan of care and expected duration. Pain level reassessed. General: Appears in no apparent distress. comfortable, Behavior is calm. Neuro: 09:00 Reassessment: Patient appears in no apparent distress at this time. Patient and/or db family updated on plan of care and expected duration. Pain level reassessed. Neuro: Level of Consciousness is awake, confused, Oriented to none. Respiratory: Airway is patent Respiratory effort is even, unlabored, Respiratory pattern is regular, symmetrical. 10:22 Reassessment: REPORT GIVEN TO MARLENY. aldana 10:24 Reassessment: Patient appears in no apparent distress at this time. Patient and/or db family updated on plan of care and expected duration. Pain level reassessed. Vital Signs: 05:20 BP 100 / 52; Pulse 108; Resp 18 S; Pulse Ox 91% on R/A; Weight 122 kg; br2 05:55 BP 90 / 55; Pulse 100; Pulse Ox 100% on R/A; br2 06:33 BP 91 / 49; Pulse 106; Resp 26; Pulse Ox 95% ; br2 06:54 BP 96 / 65; Pulse 93; Resp 15 S; Pulse Ox 97% on R/A; br2 07:47 BP 150 / 102; Pulse 60; Resp 18; Pulse Ox 95% on R/A; ko1 07:54 BP 99 / 71; Pulse 60; Resp 19; Pulse Ox 94% on 2 lpm NC; ko1 08:30 BP 110 / 81; Pulse 60; Resp 18; Pulse Ox 100% on 2 lpm NC; db 09:30 BP 185 / 138; Pulse 95; Resp 18; Pulse Ox 100% on Nebulizer Mask; db 10:24 BP 141 / 119; Pulse 87; Resp 18; Pulse Ox 100% ; db 09:30 PT MOVING db ED Course: 05:18 Patient arrived in ED. vk 05:18 Lux Garcia MD is Attending Physician. sp3 05:45 Inserted saline lock: 22 gauge in left upper arm, using aseptic technique. Blood br2 collected. Flushed with 10 mL NS. 06:13 Chest Single View XRAY In Process Unspecified. EDMS 06:16 Jocelyn Reese RN is Primary Nurse. br2 06:26 CT Head Brain wo Cont In Process Unspecified. EDMS 06:26 Triage completed. br2 06:45 Patient has correct armband on for positive identification. Placed in gown. Bed in low br2 position. Call light in reach. Side rails up X 1. Provided Education on: PLAN OF CARE. 06:45 Inserted saline lock: 22 gauge in left upper arm, using aseptic technique. Blood br2 collected. Flushed with 10 mL NS. 06:48 Inserted saline lock: 22 gauge in left ,using aseptic technique. SHOULDER. br2 06:48 Inserted saline lock: 22 gauge ,using aseptic technique. MID ABDOMEN. br2 06:49 Blood Culture Adult (2) Sent. br2 07:01 Report given to REPORT GIVEN TO JW BULLOCK. br2 07:39 Attending Physician role handed off by Lux Garcia MD ms3 07:39 Gaurav Anthony DO is Attending Physician. ms3 07:46 Bhumi Mills MD is Hospitalizing Provider. ms3 09:15 Arreaga cath inserted, using sterile technique, 16 Fr., by plater production, balloon inflated, to db gravity drainage, urine specimen collected. 09:15 Urine collected: Arreaga catheter specimen, clear. db 10:55 Warm blanket given. Pillow given. db 10:55 Arm band placed on Patient placed. db 10:55 No provider procedures requiring assistance completed. Patient admitted, IV remains in db place. Administered Medications: 05:23 CANCELLED (ERROR): ns 0.9% 1000 ml IV at 1 bolus Per protocol; 1000 mL bolus sp3 09:30 Drug: Furosemide IVP 80 mg IVP once; give over 2 minutes Route: IVP; Site: left upper db arm; 10:20 Follow up: Response: No adverse reaction db 09:30 Drug: DuoNeb Nebulize (2.5 mg - 0.5 mg) 3 ml Nebulizer once Route: Nebulizer; db 10:20 Follow up: Response: No adverse reaction db Medication: 07:16 VIS not applicable for this client. db Outcome: 07:50 Decision to Hospitalize by Provider. ms3 10:55 Admitted to ICU accompanied by nurse, accompanied by tech, via stretcher, room 7, on db monitor, with chart, Report called to ASSISTANT PRINCIPAL 10:55 Condition: stable 10:55 Instructed on the need for admit, 10:59 Patient left the ED. ap3 Signatures: Dispatcher [employer] EDMS Nancy Romano, RN RN ap3 Gaurav Anthony DO DO ms3 Lux Garcia MD MD sp3 Brynn Gamble RN RN ko1 Rosalva Caceres, RN RN Marcella Galaviz Belinda, RN RN br2 Corrections: (The following items were deleted from the chart) 06:50 06:49 Urinalysis+U.LAB.BRZ drawn and sent. br2 EDMS 06:53 06:41 General: br2 br2 07:47 07:05 BP 88 / 55; Pulse 92bpm; Resp 20bpm; Pulse Ox 95% RA; db ko1 09:39 07:16 Reassessment: Patient appears in no apparent distress at this time. Patient db and/or family updated on plan of care and expected duration. Pain level reassessed. Patient is alert, oriented x 3, equal unlabored respirations, skin warm/dry/pink. db
[2024-05-01] MEDS ORDERED: ALBUTEROL 2.5 MG/3 ML NEB SOL ONE (08:45)
[2024-05-01] MEDS ORDERED: FUROSEMIDE 40 MG/4 ML VIAL ONE (08:46)
[2024-05-01] MEDS ORDERED: IPRATROPIUM BROM 0.5MG/2.5ML ONE (08:46)
--- NOTE | 2024-05-01 09:43 | P.HP ---
Certification for Inpatient Patient admitted to: Inpatient With expected LOS: >2 Midnights Patient will require the following post-hospital care: Other (back to [place] (admit 02/24/2024)) Practitioner: I am a practitioner with admitting privileges, knowledge of patient current condition, hospital course, and medical plan of care. Services: Services provided to patient in accordance with Admission requirements found in Title 42 Section 412.3 of the Code of Federal Regulations <Rachel Yoder - Last Filed: 05/01/24 13:10> Patient History Date of Service: 05/01/24 Reason for admission: AMS, acute hypoxia secondary to see H exacerbation History of Present Illness: Ms. Boston is a resident of [facility]. She has a past medical history of dementia, congestive heart failure, hypothyroidism, asthma, and anemia of chronic disease. She was sent by the residential for increased altered mental status this morning. History is totally obtained by the residential MAR. Patient is nonverbal. On exam she has 2+ pitting edema to the lower extremities, tachypnea and is on O2 at 5 L via nasal cannula. Lab results: H/H 8.8/26.8 consistent with anemia of chronic disease, platelets 96 otherwise unremarkable Chem-7 was a mildly low glucose at 68 and a creatinine of 2.57 with a GFR of 19 which is similar to her previous, BUN 37, albumin 1.8, lactate negative, INR 1.27. Troponin negative BNP elevated at 2397. I requested a Arreaga in the emergency department and 80 of Lasix IV x 1, will continue Lasix 40 mg IV twice daily. Urinalysis reflex to culture with a urine bacteria greater than 50 urine esterase to 50 and negative nitrite Imaging results: Chest x-ray impression is "mild bilateral interstitial thickening, could represent mild pulmonary edema. Probable small bilateral effusions. Enlarged cardiac silhouette." CT brain without contrast impression "no evidence of acute intracranial abnormality" Ms. Boston will be admitted to ICU for closer monitoring of AMS, aggressive diuresis and consult to cardiology for acute hypoxia secondary to CHF exacerbation. Home medications list reviewed: Yes - Past Medical/Surgical History Has patient received pneumonia vaccine in the past: Yes Diabetic: No -: COPD -: CHF -: A-fib -: Hypertension with CKD -: Anemia -: Hypothyroidism -: Morbid obesity with malnutrition -: Anxiety -: Dementia -: Pacemaker Psychosocial/ Personal History: Lives at [place], debility, morbid obesity - Social History Smoking Status: Unknown if ever smoked CD- Drugs: No Caffeine use: Yes Place of Residence: Skilled Nursing ([place]) <Rachel Yoder - Last Filed: 05/01/24 13:10> Date of Service: 05/01/24 <Bhumi Mills - Last Filed: 05/01/24 16:54> Allergies iodine Allergy (Verified 02/21/24 13:21) Sulfa (Sulfonamide Antibiotics) Allergy (Verified 02/21/24 13:21) tositumomab Allergy (Verified 02/21/24 13:22) Home Medications: Acetaminophen [Tylenol] 650 mg PO Q6HP PRN 02/23/24 Amiodarone HCl [Cordarone*] 100 mg PO DAILY 02/23/24 Budesonide [Pulmicort*] 1 puff IH BID 02/23/24 Calcium Carbonate [Calcium] 500 mg PO DAILY 02/23/24 Carboxymethylcellulose Sodium [Artificial Tears] 1 drop EACH EYE DAILY 02/23/24 Cholecalciferol (Vitamin D3) [Vitamin D3] 1,000 unit PO DAILY 02/23/24 Citalopram Hydrobromide [Celexa] 40 mg PO BEDTIME 02/23/24 Divalproex Sodium [Depakote Sprinkle] 125 mg PO BID 02/23/24 Donepezil HCl [Aricept] 10 mg PO BEDTIME 02/23/24 Famotidine 20 mg PO BID 02/23/24 Formoterol Fumarate 1 dose IH BID 02/23/24 Furosemide [Lasix*] 40 mg PO BID 02/23/24 Ipratropium/Albuterol Sulfate [Combivent Respimat 20-100 Mcg] 4 gm IH QID 02/23/24 Ipratropium/Albuterol Sulfate [Iprat-Albut 0.5-3(2.5) mg/3 ml] 1 dose IH Q4HP PRN 02/23/24 Lactobacillus Acidophilus [Acidophilus Lactobacilli] 2 each PO DAILY 02/23/24 Levothyroxine Sodium 150 mcg PO DAILY 02/23/24 Melatonin [Melatonin*] 6 mg PO BEDTIME 02/23/24 Memantine HCl [Namenda*] 5 mg PO BID 02/23/24 Montelukast [Singulair*] 10 mg PO BEDTIME 02/23/24 Rivaroxaban [Xarelto] 20 mg PO DAILY 02/23/24 risperiDONE [Risperidone] 0.25 mg PO BEDTIME 02/23/24 Mirabegron [Myrbetriq] 25 mg PO DAILY 05/01/24 Sertraline [Zoloft] 50 mg PO DAILY 05/01/24 Review of Systems is unable to be obtained General: As per HPI <Rachel Yoder - Last Filed: 05/01/24 13:10> Physical Examination - Physical Exam General: Demented, Mild distress, Obese HEENT: Atraumatic, Normocephalic Neck: Supple Respiratory: Diminished Cardiovascular: Edema (2+ pitting bilateral lower extremities), Irregular heart rate/rhythm Capillary refill: <2 Seconds Gastrointestinal: Soft and benign, Other (Obese) Musculoskeletal: No clubbing Integumentary: Other ([place]) Neurological: Other (Nonverbal, demented, generally weak) Lymphatics: No axilla or inguinal lymphadenopathy Urinary: Arreaga catheter External genitalia: Deferred Rectal: Deferred - Studies Laboratory Data (last 24 hrs) 05/01/24 05/01/24 05/01/24 05:43 05:43 05:43 WBC 5.00 Hgb 8.8 L Hct 26.8 L Plt Count 96 L PT 14.1 H INR 1.27 APTT 32.0 Sodium 139 Potassium 4.1 BUN 37 H Creatinine 2.57 H Glucose 68 L Total Bilirubin 0.4 AST 17 ALT 15 Alkaline Phosphatase 92 <Rcahel Yoder - Last Filed: 05/01/24 13:10> - Studies Laboratory Data (last 24 hrs) 05/01/24 05/01/24 05/01/24 05:43 05:43 05:43 WBC 5.00 Hgb 8.8 L Hct 26.8 L Plt Count 96 L PT 14.1 H INR 1.27 APTT 32.0 Sodium 139 Potassium 4.1 BUN 37 H Creatinine 2.57 H Glucose 68 L Total Bilirubin 0.4 AST 17 ALT 15 Alkaline Phosphatase 92 <Bhumi Mills - Last Filed: 05/01/24 16:54> Assessment and Plan - Plan AMS with decreased responsiveness Respiratory failure secondary to CHF History of atrial fibrillation with Xarelto CKD with hypotension Anemia of chronic disease Patient's shortness of breath has worsened. Edema of the lower extremities has worsened. Patient with decompensated congestive heart failure. O2 via N/C Echocardiogram YANNA inhibitor/ARB -hold secondary to renal insufficiency and hypotension Beta-kaushik hold for now secondary to hypotension Aggressive diuresis Arreaga with strict Is & Os Monitor renal function and electrolytes Repeat chest x-ray in 2 days Daily weight Home meds per [place] MAR except as above continue Xarelto Protonix Discharge Plan: Skilled Nursing Plan to discharge in: Greater than 2 days - Advance Directives Does patient have a Living Will: No Does patient have a Durable POA for Healthcare: No - Code Status/Comfort Care Code Status Assessed: Yes (Full) <Rachel Yoder - Last Filed: 05/01/24 13:10> - Plan Pt seen and examined. I agree with the note by the [facility]. Pt is a 78 yo female with past medical history of A. fib, CHF, COPD, and Anemia who presents with AMS. Her family reports that the residential told them that pt was difficult to arouse. Of note, she completed Levaquin for UTI yesterday. On admission, lab studies show wbc 5, Hgb 8.8, K 4.1, Cr 2.57, BNP 2397, TSH 6.130. At bedside, pt is in NAD. A/P: AMS: Pt completed Levaquin for UTI yesterday. Will f/u urine cx. CHF / Pulm edema: BNP is 2397. Will continue Lasix as BP permits, strict I/O and daily weight. A. fib: Will continue telemetry, amiodarone, and xarelto Hypotension: Low threshold to start pressor. Hold BP meds. Dementia: Will continue supportive care. Hypothyroidism: TSH is 6.13. Will continue synthroid. Anemia: Hgb is8.8. Will monitor H/H. DVT ppx: SCD Code: full <Bhumi Mills - Last Filed: 05/01/24 16:54>
[2024-05-01] MEDS ORDERED: SODIUM CHLORIDE 0.9% 10ML INJ IV PRN (09:46)
[2024-05-01 09:51] LABS: Specific Gravity 1.018 (1.005-1.030); Sqamous Epithelial <5 /HPF (None Seen); Transitional Epithelial <5 /HPF (None Seen); Urine Bacteria >50 /HPF (<20); Urine Bilirubin NEGATIVE (Negative); Urine Blood Negative (Negative); Urine Clarity Extremely Turbid (Clear); Urine Color Yellow (Yellow); Urine Culture Reflex Order REFLEXED; Urine Glucose NEGATIVE (Negative); Urine Ketones TRACE (Negative); Urine Microscopic Reflex YN ORDER UMIC; Urine Mucus Slight /HPF (None Seen); Urine Nitrite NEGATIVE (Negative); Urine Protein TRACE (Negative); Urine RBC <5 /HPF (None Seen); Urine Urobilinogen Normal (Normal)
[2024-05-01 10:46] LABS: Thyroid Stimulating Hormone 6.13 uIU/mL (0.358-3.740)
--- NOTE | 2024-05-01 11:33 | P.CNS ---
Date of Consult: 05/01/24 Chief Complaint: CHF History of Present Illness: Patient with PMH of atrial fibrillation, pacemaker dependant, advanced dementia, non verbal, lives in a [facility], was brought in due to swelling in bilateral lower extremities, history can not be obtained as patient hard to response. Allergies iodine Allergy (Verified 02/21/24 13:21) Sulfa (Sulfonamide Antibiotics) Allergy (Verified 02/21/24 13:21) tositumomab Allergy (Verified 02/21/24 13:22) Home medications list reviewed: Yes Home Medications: Acetaminophen [Tylenol] 650 mg PO Q6HP PRN 02/23/24 Amiodarone HCl [Cordarone*] 100 mg PO DAILY 02/23/24 Budesonide [Pulmicort*] 1 puff IH BID 02/23/24 Calcium Carbonate [Calcium] 500 mg PO DAILY 02/23/24 Carboxymethylcellulose Sodium [Artificial Tears] 1 drop EACH EYE DAILY 02/23/24 Cholecalciferol (Vitamin D3) [Vitamin D3] 1,000 unit PO DAILY 02/23/24 Citalopram Hydrobromide [Celexa] 40 mg PO BEDTIME 02/23/24 Divalproex Sodium [Depakote Sprinkle] 125 mg PO BID 02/23/24 Donepezil HCl [Aricept] 10 mg PO BEDTIME 02/23/24 Famotidine 20 mg PO BID 02/23/24 Formoterol Fumarate 1 dose IH BID 02/23/24 Furosemide [Lasix*] 40 mg PO BID 02/23/24 Ipratropium/Albuterol Sulfate [Combivent Respimat 20-100 Mcg] 4 gm IH QID 02/23/24 Ipratropium/Albuterol Sulfate [Iprat-Albut 0.5-3(2.5) mg/3 ml] 1 dose IH Q4HP PRN 02/23/24 Lactobacillus Acidophilus [Acidophilus Lactobacilli] 2 each PO DAILY 02/23/24 Levothyroxine Sodium 150 mcg PO DAILY 02/23/24 Melatonin [Melatonin*] 6 mg PO BEDTIME 02/23/24 Memantine HCl [Namenda*] 5 mg PO BID 02/23/24 Montelukast [Singulair*] 10 mg PO BEDTIME 02/23/24 Rivaroxaban [Xarelto] 20 mg PO DAILY 02/23/24 risperiDONE [Risperidone] 0.25 mg PO BEDTIME 02/23/24 Mirabegron [Myrbetriq] 25 mg PO DAILY 05/01/24 Sertraline [Zoloft] 50 mg PO DAILY 05/01/24 - Past Medical/Surgical History Diabetic: No -: COPD -: CHF -: A-fib -: Hypertension with CKD -: Anemia -: Hypothyroidism -: Morbid obesity with malnutrition -: Anxiety -: Dementia -: Pacemaker Psychosocial/ Personal History: Lives at [place], debility, morbid obesity - Social History Smoking Status: Unknown if ever smoked CD- Drugs: No Caffeine use: Yes Review of Systems is unable to be obtained Physical Examination General: In no apparent distress HEENT: Atraumatic, PERRLA, Mucous membr. moist/pink, EOMI, Sclerae nonicteric Neck: Supple, 2+ carotid pulse no bruit, No LAD, Without JVD or thyroid abnormality Respiratory: Clear to auscultation bilaterally, Normal air movement Cardiovascular: Regular rate/rhythm, Normal S1 S2, Edema Gastrointestinal: Normal bowel sounds, No tenderness Musculoskeletal: No tenderness Integumentary: No rashes Neurological: Normal gait, Normal speech, Normal tone, Normal affect Lymphatics: No axilla or inguinal lymphadenopathy Laboratory Data (last 24 hrs) 05/01/24 05/01/24 05/01/24 05:43 05:43 05:43 WBC 5.00 Hgb 8.8 L Hct 26.8 L Plt Count 96 L PT 14.1 H INR 1.27 APTT 32.0 Sodium 139 Potassium 4.1 BUN 37 H Creatinine 2.57 H Glucose 68 L Total Bilirubin 0.4 AST 17 ALT 15 Alkaline Phosphatase 92 - Problems (1) Congestive heart failure Current Visit: Yes Status: Acute Plan: get Echo Lasix 40 mg IV BID. Monitor input and output. Monitor and correct electrolytes. (2) Atrial fibrillation Current Visit: Yes Status: Acute Plan: currently paced. continue Amiodarone 100 mg daily Continue Xarelto (3) Anemia Current Visit: Yes Status: Acute Plan: Monitor Hgb closely.
[2024-05-01] MEDS: D50W 25 GM/50 ML SYRINGE IV ONE (12:00)
[2024-05-01] MEDS: LACTOBACILLUS/ACIDOPHILUS TAB PO SCH (12:00)
[2024-05-01] MEDS: ALBUTEROL 2.5 MG/3 ML NEB SOL NEB SCH (13:31)
[2024-05-01] MEDS: IPRATROPIUM BROM 0.5MG/2.5ML NEB SCH (13:31)
[2024-05-01] MEDS: ALBUMIN HUMAN 25% 50 ML IV ONE (13:52)
[2024-05-01] MEDS: NOREPINEPHRINE 16 MG in D5W 250 ML IV SCH (13:54)
[2024-05-01] MEDS: Mupirocin NASAL 2 APPL/1 GM TUBE NAS SCH (14:00)
[2024-05-01] MEDS ORDERED: NOREPINEPHRINE 4 MG in D5W 250 ML IV SCH (14:00)
[2024-05-01] MEDS: RIVAROXABAN 10 MG TABLET PO SCH (17:00)
[2024-05-01] MEDS: CEFTRIAXONE 1,000 MG in NA CHLORIDE 0.9% 50 ML IVPB SCH (18:02)
[2024-05-01] MEDS: HEPARIN/D5W 25,000 UNIT/500 ML BAG IV SCH (18:27)
[2024-05-01] MEDS: BUDESONIDE 0.5 MG/2 ML NEB NEB SCH (20:08)
[2024-05-01] MEDS: FUROSEMIDE 40 MG/4 ML VIAL IV SCH (21:00)
[2024-05-01] MEDS: DIVALPROEX NA 125 MG CAP PO SCH (21:00)
[2024-05-01] MEDS: RISPERIDONE 0.25 MG TABLET PO SCH (21:00)
[2024-05-01 22:44] LABS: Albumin 2.1 g/dL (3.4-5.0); Albumin/Globulin Ratio 0.6 (1.1-1.8); Anion Gap 8.6 mEq/L (5.0-15.0); Bilirubin Total 0.5 mg/dL (0.2-1.0); Globulin 3.7 g/dL (2.3-3.5); Potassium 3.6 mEq/L (3.5-5.1); Protein, Total 5.8 g/dL (6.4-8.2); Troponin High Sensitivity 33.6 pg/mL (<58.9)
[2024-05-01 22:50] LABS: Absolute Eosinophils 0.1 K/uL (0-0.5); Absolute Lymphocytes (CBC) 1.5 K/uL (0.7-4.9); Absolute Monocytes 0.5 K/uL (0.1-1.3); Absolute Neutrophil 5.3 K/uL (1.8-8.0); Basophils % 0.4 % (0-1.3); Eosinophils % 0.9 % (0-4.4); Hematocrit 28.3 % (36.0-45.0); Hemoglobin 9.4 g/dL (12.0-15.0); Lymphocytes % 20.4 % (15.3-44.8); MCH 31.7 pg (27.0-35.0); MCHC 33.2 g/dL (32.0-36.0); MCV 95.4 fL (80-100); MPV 7.6 fL (7.6-11.3); Monocytes % 7.1 % (3.3-12.3); Neutrophils % 71.2 % (41.7-73.7); Nucleated Red Blood Cells % 0.1 % (0-0); Platelets 138 thou/uL (152-406); RBC Red Blood Cell Count 2.97 M/uL (3.86-4.86); Red Cell Distribution Width 15.6 % (12.1-15.2)
[2024-05-02] MEDS ORDERED: NOREPINEPHRINE 4 MG/4 ML VIAL ONE (03:49)
[2024-05-02] MEDS ORDERED: NA CHLORIDE 0.9% 250 ML ONE (03:49)
[2024-05-02] MEDS: LEVOTHYROXINE SOD 0.075 MG TAB PO SCH (04:22)
[2024-05-02 05:34] LABS: Absolute Basophils 0.1 K/uL (0-0.5); Absolute Eosinophils 0.1 K/uL (0-0.5); Absolute Lymphocytes (CBC) 0.9 K/uL (0.7-4.9); Absolute Monocytes 0.7 K/uL (0.1-1.3); Absolute Neutrophil 6.2 K/uL (1.8-8.0); Eosinophils % 1.1 % (0-4.4); Hematocrit 28.6 % (36.0-45.0); Hemoglobin 9.5 g/dL (12.0-15.0); Lymphocytes % 11.3 % (15.3-44.8); MCH 31.6 pg (27.0-35.0); MCHC 33.2 g/dL (32.0-36.0); MCV 95.1 fL (80-100); MPV 7.4 fL (7.6-11.3); Monocytes % 8.3 % (3.3-12.3); Neutrophils % 78.3 % (41.7-73.7); Platelets 141 thou/uL (152-406); RBC Red Blood Cell Count 3.01 M/uL (3.86-4.86); Red Cell Distribution Width 15.7 % (12.1-15.2)
[2024-05-02 05:56] LABS: ALT/SGPT 17 U/L (13-56); AST/SGOT 18 U/L (15-37); Albumin 2.1 g/dL (3.4-5.0); Albumin/Globulin Ratio 0.6 (1.1-1.8); Alkaline Phosphatase 97 U/L (45-117); Anion Gap 8.8 mEq/L (5.0-15.0); BUN Blood Urea Nitrogen 39 mg/dL (7-18); Bicarbonate 33 mEq/L (21-32); Bilirubin Total 0.4 mg/dL (0.2-1.0); Globulin 3.4 g/dL (2.3-3.5); Glomerular Filtration Rate 18 ml/min (=/>90); Glucose Level 126 mg/dL (74-106); HDL Cholesterol 93 mg/dL (40-60); Potassium 3.8 mEq/L (3.5-5.1); Protein, Total 5.5 g/dL (6.4-8.2); Sodium Level 139 mEq/L (136-145)
[2024-05-02 06:08] LABS: LDL Cholesterol,Calc NonReport -2
[2024-05-02 06:22] LABS: LDL, Direct 28 mg/dL (100-129)
[2024-05-02] MEDS: VANCOMYCIN 2 GM in NA CHLORIDE 0.9% 500 ML IVPB ONE (06:45)
[2024-05-02] MEDS ORDERED: VANCOMYCIN 1 GM in NA CHLORIDE 0.9% 250 ML IVPB SCH (07:00)
[2024-05-02] MEDS: AMIODARONE HCL 200 MG TAB PO SCH (07:27)
[2024-05-02] MEDS: CITALOPRAM 10 MG TABLET PO SCH (07:27)
[2024-05-02] MEDS: CALCITROL 0.25 MCG CAP PO SCH (07:28)
[2024-05-02] MEDS: PANTOPRAZOLE 40 MG INJ IVP SCH (08:22)
[2024-05-02] MEDS: VANCOMYCIN 2 GM in NA CHLORIDE 0.9% 500 ML IVPB SCH (08:22)
--- NOTE | 2024-05-02 08:25 | P.PN ---
Subjective Date of Service: 05/02/24 Chief Complaint: AMS, acute hypoxia secondary to CHF exacerbation Subjective: Worsening (Urine with >50 bacteria, Rocephin started. this am pt with 4+ gram neg elsa. Abx changed, Vanco added secondary to multiple lines and some skin breakdown) <Rachel Yoder - Last Filed: 05/02/24 08:19> Date of Service: 05/02/24 <Bhumi Mills - Last Filed: 05/02/24 18:27> Review of Systems is unable to be obtained General: Weakness, Malaise Respiratory: As per HPI Cardiovascular: As per HPI Neurological: Weakness, Confusion, As per HPI <Rachel Yoder - Last Filed: 05/02/24 08:19> Physical Examination - Vital Signs Temperature: 97.1 F Blood Pressure: 91/57 Pulse: 84 Respirations: 21 Pulse Ox (%): 100 - Physical Exam General: Obese, Other (does not follow commands) HEENT: Atraumatic, Normocephalic Neck: Supple Respiratory: Normal air movement Cardiovascular: Edema (significant pitting edema to lower ext), Irregular heart rate/rhythm Capillary refill: >2 Seconds Gastrointestinal: Soft and benign Musculoskeletal: Contractures Integumentary: Other (some skin breakdown at buttok, thighs, and left heel) Neurological: Abnormal speech, Abnormal strength, Abnormal affect, Dementia Lymphatics: No axilla or inguinal lymphadenopathy Urinary: Arreaga catheter External genitalia: Deferred Rectal: Deferred <Rachel Yoder - Last Filed: 05/02/24 08:19> - Studies Microbiology Data (last 24 hrs): 05/01/24 06:05 Blood - Blood Blood Culture Gram Stain - Final 05/01/24 06:05 Blood - Blood Gram Stain - Final 05/01/24 05:45 Blood - Blood Blood Culture Gram Stain - Final 05/01/24 05:45 Blood - Blood Gram Stain - Final <Bhumi Mills - Last Filed: 05/02/24 18:27> Assessment And Plan - Plan AMS with decreased responsiveness Respiratory failure secondary to CHF with pitting edema History of atrial fibrillation with Xarelto CKD with hypotension Anemia of chronic disease Severe sepsis with shock and UTI (gram neg rods) Patient's shortness of breath has worsened. Edema of the lower extremities has worsened. Patient with decompensated congestive heart failure. O2 via N/C Echocardiogram YANNA inhibitor/ARB -hold secondary to renal insufficiency and hypotension Beta-kaushik hold for now secondary to hypotension Aggressive diuresis - lasix dose held for hypotension and increased titration of levophed, will start albumin/lasix drip Arreaga with strict Is & Os Monitor renal function and electrolytes, Repeat chest x-ray in 2 days Daily weight Home meds per [place] MAR except as above -stop po meds as swallow screen reveals inability to follow commands continue Xarelto - started on Heparin drip Protonix 05/02/24 Started levophed last pm, titrated upward overnight started Heparin drip last pm as pt unable to take po CKD worsening with hypotension, lasix held last pm, Pt with cardiorenal failure probably secondary to sepsis with shock. Alb/lasix drip started, nephrology consult placed this morning ECHO done yesterday, pacemaker intact, Dr. Hallman following Rocephin given yesterday, today will begin Cefepime/Vanco - Code Status/Comfort Care Code Status: Full Code Critical Care: Yes (50) <Rachel Yoder - Last Filed: 05/02/24 08:19> - Plan Pt checo nd examined. I agreee with the note by the [employer]. Continue levophed, heparin drip, and iv abx. Hold xarelto <Bhumi Mills - Last Filed: 05/02/24 18:27>
[2024-05-02] MEDS: ALBUMIN HUMAN 25% 12.5 GM, FUROSEMIDE 100 MG in NA CHLORIDE 0.9% 40 ML IV SCH (08:52)
[2024-05-02] MEDS ORDERED: ALBUMIN HUMAN 25% 12.5 GM, FUROSEMIDE 100 MG in NA CHLORIDE 0.9% 40 ML IV SCH (09:00)
--- NOTE | 2024-05-02 09:28 | P.CNS ---
Date of Consult: 05/02/24 Reason for Consult: SPEEDY/ CKD Requesting Physician: Bhumi Mills Chief Complaint: AMS, acute hypoxia secondary to CHF exacerbation History of Present Illness: Ms. Boston is a resident of [facility]. She has a past medical history of dementia, congestive heart failure, hypothyroidism, asthma, and anemia of chronic disease. She was sent by the [facility] for increased altered mental status this morning. History is totally obtained by the [facility] MAR. Patient is nonverbal. On exam she has 2+ pitting edema to the lower extremities, tachypnea and is on O2 at 5 L via nasal cannula. Lab results: H/H 8.8/26.8 consistent with anemia of chronic disease, platelets 96 otherwise unremarkable Chem-7 was a mildly low glucose at 68 and a creatinine of 2.57 with a GFR of 19 which is similar to her previous, BUN 37, albumin 1.8, lactate negative, INR 1.27. Troponin negative BNP elevated at 2397. I requested a Arreaga in the emergency department and 80 of Lasix IV x 1, will continue Lasix 40 mg IV twice daily. Urinalysis reflex to culture with a urine bacteria greater than 50 urine esterase to 50 and negative nitrite Imaging results: Chest x-ray impression is "mild bilateral interstitial thickening, could represent mild pulmonary edema. Probable small bilateral effusions. Enlarged cardiac silhouette." CT brain without contrast impression "no evidence of acute intracranial abnormality" Ms. Boston will be admitted to ICU for closer monitoring of AMS, aggressive diuresis and consult to cardiology for acute hypoxia secondary to CHF exacerbation. 05:22 This 78 yrs old Female presents to ER via [facility] with complaints of ALTERED MENTAL [facility] STATUS. 05:22 78-year-old female history of atrial fibrillation, CHF, COPD, anemia presents from [address] for altered mental status. We called the [facility] and they state that she is more difficult to arouse than normal. Her Lasix has also been held due to a nephrology appointment tomorrow. She finished Levaquin yesterday for a urinary tract infection. They also state that her blood pressure is chronically low. No history from patient or further history from EMS. Review of systems, history and physical severely limited due to the above constraints and baseline dementia coupled with altered mental status.. Allergies iodine Allergy (Verified 02/21/24 13:21) Sulfa (Sulfonamide Antibiotics) Allergy (Verified 02/21/24 13:21) tositumomab Allergy (Verified 02/21/24 13:22) Home medications list reviewed: Yes Home Medications: Acetaminophen [Tylenol] 650 mg PO Q6HP PRN 02/23/24 Amiodarone HCl [Cordarone*] 100 mg PO DAILY 02/23/24 Budesonide [Pulmicort*] 1 puff IH BID 02/23/24 Calcium Carbonate [Calcium] 500 mg PO DAILY 02/23/24 Carboxymethylcellulose Sodium [Artificial Tears] 1 drop EACH EYE DAILY 02/23/24 Cholecalciferol (Vitamin D3) [Vitamin D3] 1,000 unit PO DAILY 02/23/24 Citalopram Hydrobromide [Celexa] 40 mg PO BEDTIME 02/23/24 Divalproex Sodium [Depakote Sprinkle] 125 mg PO BID 02/23/24 Donepezil HCl [Aricept] 10 mg PO BEDTIME 02/23/24 Famotidine 20 mg PO BID 02/23/24 Formoterol Fumarate 1 dose IH BID 02/23/24 Furosemide [Lasix*] 40 mg PO BID 02/23/24 Ipratropium/Albuterol Sulfate [Combivent Respimat 20-100 Mcg] 4 gm IH QID 02/23/24 Ipratropium/Albuterol Sulfate [Iprat-Albut 0.5-3(2.5) mg/3 ml] 1 dose IH Q4HP PRN 02/23/24 Lactobacillus Acidophilus [Acidophilus Lactobacilli] 2 each PO DAILY 02/23/24 Levothyroxine Sodium 150 mcg PO DAILY 02/23/24 Melatonin [Melatonin*] 6 mg PO BEDTIME 02/23/24 Memantine HCl [Namenda*] 5 mg PO BID 02/23/24 Montelukast [Singulair*] 10 mg PO BEDTIME 02/23/24 Rivaroxaban [Xarelto] 20 mg PO DAILY 02/23/24 risperiDONE [Risperidone] 0.25 mg PO BEDTIME 02/23/24 Mirabegron [Myrbetriq] 25 mg PO DAILY 05/01/24 Sertraline [Zoloft] 50 mg PO DAILY 05/01/24 - Past Medical/Surgical History Diabetic: No -: COPD -: Diastolic CHF/ Pulmonary HTN -: A-fib -: Hypertension with CKD -: CKD (Dr. Hopper/ Dr. Bourgeois) -: Hypothyroidism -: Anemia -: Dementia -: Morbid obesity with malnutrition -: Anxiety -: Pacemaker Psychosocial/ Personal History: Lives at [place], debility, morbid obesity - Social History Smoking Status: Unknown if ever smoked CD- Drugs: No Caffeine use: Yes Place of Residence: Jail ([place]) Review of Systems is unable to be obtained Physical Examination Temp Pulse Resp BP Pulse Ox 97.1 F 86 21 H 146/96 H 100 05/02/24 08:35 05/02/24 08:52 05/02/24 08:35 05/02/24 08:52 05/02/24 08:35 General: Unresponsive HEENT: Atraumatic, Other (DMM) Neck: Supple Respiratory: Clear to auscultation bilaterally Cardiovascular: Regular rate/rhythm, Edema Gastrointestinal: Soft and benign, Non-distended Musculoskeletal: No clubbing, No contractures Integumentary: No rashes, No cyanosis Blood work reviewed in the chart. Imagings Data: Exam Date: 05/01/24 Reason for Exam: ams Report Status: Signed EXAM DESCRIPTION: Chest Single View CLINICAL HISTORY: ams COMPARISON: None TECHNIQUE: Single AP view of the chest. FINDINGS: Left-sided cardiac conduction device. Lung volumes adequate. Cardiac silhouette is enlarged. No pneumothorax. Probable small bilateral effusions. Mild bilateral interstitial thickening. No focal consolidation. No acute bony finding. IMPRESSION: 1. Mild bilateral interstitial thickening, could represent mild pulmonary edema. 2. Probable small bilateral effusions. 3. Enlarged cardiac silhouette EXAM: CT brain without contrast HISTORY: Headache, drowsiness COMPARISON: 02/21/2024 TECHNIQUE: Multiple contiguous axial images were obtained and a CT of the brain without contrast. Sagittal and coronal reformats were performed. FINDINGS: No evidence of hydrocephalus, intracranial hemorrhage, or extra-axial fluid collection. Moderate brain atrophy with moderate periventricular and deep white matter chronic microvascular ischemic changes present. No evidence of midline shift or areas of brain edema. The calvarium is intact. The visualized paranasal sinuses and mastoid air cells are essentially clear. Significant carotid atherosclerosis seen. IMPRESSION: No evidence of acute intracranial abnormality. Conclusions/Impression: Stage II SPEEDY in the setting of Septic Shock/ Hypotension CKD III -No NSAIDs Hypotension -Albumin as ordered -Continue Levophed Acute Respiratory Failure Diastolic CHF, A/C Moderate Pulmonary HTN Peripheral Edema -Continue Lasix Hypoalbuminemia -Albumin as ordered Anemia in chronic illness -Monitor H&H -PRBC prn -Retacrit X1 Septic Shock Acute GNR Cystitis -Continue Abx; monitor vanc level Metabolic Encephalopathy -Continue supportive care Case reviewed with hospitalist team Hospitalist and ER notes reviewed Thank you kindly for the consultation Patient Care 50min
[2024-05-02] MEDS: CEFEPIME 1 GM in NA CHLORIDE 0.9% 100 ML IV SCH (09:49)
--- NOTE | 2024-05-02 09:59 | P.PN ---
Subjective Date of Service: 05/02/24 Chief Complaint: AMS, acute hypoxia secondary to CHF exacerbation Pt is resting comfortably in bed. Pt is confused. I could not elicit information from her. Pt is getting levophed and heparin drip. We added Vanc for gram positive cocci in blood cx. No other complaints. Review of Systems is unable to be obtained Physical Examination - Vital Signs Temperature: 97.1 F Blood Pressure: 146/96 Pulse: 86 Respirations: 21 Pulse Ox (%): 100 - Physical Exam General: Alert, In no apparent distress, Confused HEENT: Atraumatic, Normocephalic Neck: Supple, 2+ carotid pulse no bruit, JVD not distended Respiratory: Clear to auscultation bilaterally, Normal air movement Cardiovascular: No edema, Normal pulses, Regular rate/rhythm, Normal S1 S2 Capillary refill: <2 Seconds Gastrointestinal: Normal bowel sounds, Soft and benign, Non-distended Musculoskeletal: No clubbing, No swelling, No contractures Integumentary: No rashes, No breakdown, No significant lesion Neurological: Normal gait, Normal speech, Normal strength at 5/5 x4 extr Lymphatics: No axilla or inguinal lymphadenopathy Assessment And Plan - Plan AMS: Pt completed Levaquin for UTI yesterday. Will continue rocephin and f/u urine cx. Septic shock 2/2 bacteremia: Blood cx is growing gram positive cocci. Will continue iv vanc. F/u blood cx. CHF / Pulm edema: BNP is 2397. Will continue Lasix as BP permits, strict I/O and daily weight. A. fib: Will continue telemetry, amiodarone, and heparin drip Hypotension: Low threshold to start pressor. Hold BP meds. Dementia: Will continue supportive care. Hypothyroidism: TSH is 6.13. Will continue synthroid. Anemia: Hgb is8.8. Will monitor H/H. DVT ppx: heparin Code: full Dispo: Pending hospiital course. Continue ICU level of care.
--- NOTE | 2024-05-02 11:23 | ECHO ---
HEIGHT: 5 ft 2 in WEIGHT: 264 lb 1.6 oz DATE OF STUDY: 05/01/[address]: Rachel Yoder FLOOR SUPERVISOR-BC 2-DIMENSIONAL: YES M.MODE: YES DOPPLER: YES COLOR FLOW: YES TDS: YES PORTABLE: YES DEFINITY: BUBBLE STUDY: DIAGNOSIS: CONGESTIVE HEART FAILURE EXACERBATION CARDIAC HISTORY: CATHERIZATION: NO SURGERY: NO PROSTHETIC VALVE: NO PACEMAKER: NO MEASUREMENTS (cm) DIASTOLIC (NORMALS) SYSTOLIC (NORMALS) IVSd 1.3 (0.6-1.2) LA Diam 2.8 (1.9-4.0) LVEF 55-60% LVIDd 4.7 (3.5-5.7) LVIDs 3.6 (2.0-3.5) %FS 23% LVPWd 1.3 (0.6-1.2) Ao Diam 3.0 (2.0-3.7) 2 DIMENSIONAL ASSESSMENT: RIGHT ATRIUM: NORMAL LEFT ATRIUM: MODERATE DILATED RIGHT VENTRICLE: NORMAL LEFT VENTRICLE: NORMAL TRICUSPID VALVE: TRACE TRICUSPID REGURGITATION MITRAL VALVE: SEVERE MITRAL ANNULAR CALCIFICATION PULMONIC VALVE: NORMAL AORTIC VALVE: NORMAL PERICARDIAL EFFUSION: NONE AORTIC ROOT: NORMAL LEFT VENTRICULAR WALL MOTION: NORMAL DOPPLER/COLOR FLOW: GRADE III DIASTOLIC DYSFUNCTION COMMENTS: 1. NORMAL LEFT VENTRICULAR SYSTOLIC FUNCTION, EJECTION FRACTION 55-60%, NORMAL WALL MOTION 2. GRADE III DIASTOLIC DYSFUNCTION 3. MODERATE PULMONARY HYPERTENSION TECHNOLOGIST: AICHA MIXON
--- NOTE | 2024-05-02 12:44 | P.PN ---
Subjective Date of Service: 05/02/24 Chief Complaint: AMS, acute hypoxia secondary to CHF exacerbation Subjective: No new changes, No C/O voiced, Tolerating diet, Ambulating, Improving Review of Systems 10-point ROS is otherwise unremarkable Physical Examination - Vital Signs Temperature: 97.1 F Blood Pressure: 146/96 Pulse: 86 Respirations: 21 Pulse Ox (%): 100 - Physical Exam General: Alert, In no apparent distress HEENT: Atraumatic, PERRLA, EOMI Neck: Supple, JVD not distended Respiratory: Clear to auscultation bilaterally, Normal air movement Cardiovascular: Regular rate/rhythm, Normal S1 S2 Gastrointestinal: Normal bowel sounds, No tenderness Musculoskeletal: No tenderness Integumentary: No rashes Neurological: Normal speech, Normal tone, Normal affect Lymphatics: No axilla or inguinal lymphadenopathy - Studies Microbiology Data (last 24 hrs): 05/01/24 06:05 Blood - Blood Blood Culture Gram Stain - Final 05/01/24 06:05 Blood - Blood Gram Stain - Final 05/01/24 05:45 Blood - Blood Blood Culture Gram Stain - Final 05/01/24 05:45 Blood - Blood Gram Stain - Final Medications List Reviewed: Yes Assessment And Plan - Current Problems (Diagnosis) (1) Congestive heart failure Current Visit: Yes Status: Acute Plan: Echo shows normal EF with grade 3 DD, moderate pulmonary hypertension Lasix drip. Monitor input and output. Monitor and correct electrolytes. (2) Atrial fibrillation Current Visit: Yes Status: Acute Plan: currently paced. continue Amiodarone 100 mg daily Continue Heparin drip (3) Anemia Current Visit: Yes Status: Acute Plan: Monitor Hgb closely.
--- NOTE | 2024-05-02 13:49 | EKG ---
Test Date: 2024-05-01 Test Time: 05:40:15 Ride Assembly Supervisor: CRIS MEASUREMENT RESULTS: Intervals: Rate: 108 NE: 170 QRSD: 114 QT: 400 QTc: 536 [place]: P: 114 NE: 170 QRS: -90 T: 117 INTERPRETIVE STATEMENTS: Suspect arm lead reversal, interpretation assumes no reversal Demand pacemaker, interpretation is based on intrinsic rhythm Sinus tachycardia with premature supraventricular complexes with occasional and consecutive premature ventricular complexes and Consider right ventricular involvement in acute inferior infarct Abnormal ECG Compared to ECG 03/15/2024 10:52:29 Atrial premature complex(es) now present Ventricular premature complex(es) now present Myocardial infarct finding now present Left-axis deviation no longer present Left bundle-branch block no longer present Electronically Signed On 05-02-24 13:10:13 CDT by Damian Hallman
[2024-05-03 05:19] LABS: Absolute Eosinophils 0.2 K/uL (0-0.5); Absolute Lymphocytes (CBC) 1.7 K/uL (0.7-4.9); Absolute Monocytes 0.7 K/uL (0.1-1.3); Absolute Neutrophil 3.5 K/uL (1.8-8.0); Basophils % 0.7 % (0-1.3); Eosinophils % 3.4 % (0-4.4); Hematocrit 24.6 % (36.0-45.0); Lymphocytes % 28.1 % (15.3-44.8); MCH 31.2 pg (27.0-35.0); MCHC 32.5 g/dL (32.0-36.0); MCV 95.9 fL (80-100); MPV 7.9 fL (7.6-11.3); Monocytes % 11.8 % (3.3-12.3); Platelets 106 thou/uL (152-406); RBC Red Blood Cell Count 2.57 M/uL (3.86-4.86); Red Cell Distribution Width 15.7 % (12.1-15.2)
[2024-05-03 05:25] LABS: Albumin 2.3 g/dL (3.4-5.0); Albumin/Globulin Ratio 0.8 (1.1-1.8); Anion Gap 4.4 mEq/L (5.0-15.0); Bilirubin Total 0.7 mg/dL (0.2-1.0); Globulin 2.9 g/dL (2.3-3.5); Magnesium 1.8 mg/dL (1.6-2.4); Phosphorus 2.7 mg/dL (2.5-4.9); Potassium 3.4 mEq/L (3.5-5.1); Protein, Total 5.2 g/dL (6.4-8.2); Uric Acid 11.3 mg/dL (2.6-6.0)
[2024-05-03 05:44] LABS: Sqamous Epithelial <5 /HPF (None Seen); Urine Bacteria None Seen /HPF (<20); Urine Culture Reflex Order NOT NEEDED; Urine Micro Reflex YN NO BILL MICROSCOPIC; Urine Mucus Slight /HPF (None Seen); Urine RBC None Seen /HPF (None Seen)
[2024-05-03 05:45] LABS: Urine Bilirubin NEGATIVE (Negative); Urine Blood Negative (Negative); Urine Clarity Clear (Clear); Urine Color Yellow (Yellow); Urine Glucose Negative (Negative); Urine Ketones NEGATIVE (Negative); Urine Protein NEGATIVE (Negative); Urine Urobilinogen 0.2 (Normal); Urine pH 5.5 (5.0-7.0)
[2024-05-03 05:46] LABS: Urine Nitrite NEGATIVE (Negative)
[2024-05-03 05:52] LABS: UR PROTEIN 6.1 mg/dL (<11.9); Urine Protein/Creatinine Ratio 0.2 ratio (<0.15)
[2024-05-03 06:16] LABS: MA/CREAT RATIO ND (< 30.0); UR MICROALBUMIN < 0.5 mg/dL (< 1.9)
--- NOTE | 2024-05-03 08:04 | P.PN ---
Subjective Date of Service: 05/03/24 Chief Complaint: AMS, acute hypoxia secondary to CHF exacerbation Subjective: Improving (pt remains on Levophed but is increasingly responsive, speaking, trying to assist with rolling and position changes) <Rachel Yoder - Last Filed: 05/03/24 07:56> Date of Service: 05/03/24 <Bhumi Mills - Last Filed: 05/03/24 10:10> Review of Systems is unable to be obtained General: Weakness, Malaise Neurological: Weakness, Other (Increasingly responsive and speaking today) <Rachel Yoder - Last Filed: 05/03/24 07:56> Physical Examination - Vital Signs Temperature: 97.6 F Blood Pressure: 90/62 Pulse: 79 Respirations: 19 Pulse Ox (%): 99 - Physical Exam General: Oriented x1, Cooperative, Obese HEENT: Atraumatic, Other (Edentulous) Neck: Supple Respiratory: Diminished, Expiratory wheezes Cardiovascular: Normal S1 S2, Edema (2+ to lower extremities improved but still significant) Capillary refill: <2 Seconds Gastrointestinal: Soft and benign Musculoskeletal: No clubbing Integumentary: Other (Pallor, scattered ecchymosis, stage II pressure areas to medial superior thighs) Neurological: Other (Oriented to person increased responsiveness today, speaking, makes eye contact) Lymphatics: No axilla or inguinal lymphadenopathy Urinary: Arreaga catheter, Other (Decreased output) External genitalia: Deferred Rectal: Deferred - Studies Microbiology Data (last 24 hrs): 05/01/24 05:45 Blood - Blood Blood Culture Gram Stain - Final 05/01/24 05:45 Blood - Blood Gram Stain - Final 05/01/24 06:05 Blood - Blood Blood Culture Gram Stain - Final 05/01/24 06:05 Blood - Blood Gram Stain - Final Medications List Reviewed: Yes <Rachel Yoder - Last Filed: 05/03/24 07:56> - Studies Microbiology Data (last 24 hrs): 05/01/24 05:45 Blood - Blood Blood Culture Gram Stain - Final 05/01/24 05:45 Blood - Blood Gram Stain - Final 05/01/24 06:05 Blood - Blood Blood Culture Gram Stain - Final 05/01/24 06:05 Blood - Blood Gram Stain - Final <Bhumi Mills - Last Filed: 05/03/24 10:10> Assessment And Plan - Plan AMS with decreased responsiveness Respiratory failure secondary to CHF with pitting edema History of atrial fibrillation with Xarelto CKD with hypotension Anemia of chronic disease Severe sepsis with shock and UTI (gram neg rods) Patient's shortness of breath has improved, remains slightly tachypneic Edema of the lower extremities has improved but still with 2+ pitting edema Patient with decompensated congestive heart failure, Dr. Hallman following, patient remains on albumin/Lasix drip, PRBCs this morning 05/03/2024 for hemoglobin of 8. O2 via N/C Echocardiogram YANNA inhibitor/ARB -hold secondary to renal insufficiency and hypotension Beta-kaushik hold for now secondary to hypotension Aggressive diuresis - lasix dose held for hypotension and increased titration of levophed 05/03/2024 remains on Levophed, will start albumin/lasix drip Arreaga with strict Is & Os, continue strict VENANCIO output over the past 2 days and significant Monitor renal function and electrolytes, creatinine stable but mildly increasing trend Repeat chest x-ray in 2 days Daily weight Home meds per [place] OCT except as above -stop po meds as swallow screen reveals inability to follow commands continue Xarelto - started on Heparin drip Protonix 05/02/24 Started levophed last pm, titrated upward overnight started Heparin drip last pm as pt unable to take po CKD worsening with hypotension, lasix held last pm, Pt with cardiorenal failure probably secondary to sepsis with shock. Alb/lasix drip started, nephrology consult placed this morning, Dr. Hopper following ECHO done yesterday, pacemaker intact, Dr. Hallman following Rocephin given yesterday, today will begin Cefepime/Vanco - Pt switched to Merrem for ESBL E. coli, Blood cultures without growth <Rachel Yoder - Last Filed: 05/03/24 07:56> - Plan Pt seen and examined. I agree with the note by the TURBINATED BONE GRINDER. Pt is still getting levophed. Urine cx is growing ESBL E. coli. Will start merrem and continue iv vanc. Will replete potassium. Nephrology is managing renal function. <Bhumi Mills - Last Filed: 05/03/24 10:10>
[2024-05-03] MEDS: MAGNESIUM SULFATE 1 gm IVPB 1 GM/100 ML BAG IV ONE (08:42)
[2024-05-03] MEDS: Meropenem 1,000 MG in NA CHLORIDE 0.9% 100 ML IV SCH ×2 (08:42→20:12)
[2024-05-03] MEDS: KCL 20 MEQ/100 mL IVPB 20 MEQ/100 ML BAG IV SCH (08:42)
[2024-05-03] MEDS: ALBUMIN HUMAN 25% 12.5 GM, FUROSEMIDE 100 MG in NA CHLORIDE 0.9% 40 ML IV SCH (08:44)
[2024-05-03] MEDS: EPOETIN ALFA-EPBX 10,000 UNIT/ML VIAL SQ SCH (08:44)
[2024-05-03] MEDS ORDERED: NA CHLORIDE 0.9% 250 ML ONE (09:30)
--- NOTE | 2024-05-03 09:47 | P.PN ---
Date of Service: 05/03/24 Vital Signs Temp Pulse Resp BP Pulse Ox 97.6 F 79 19 90/62 99 05/03/24 08:04 05/03/24 08:04 05/03/24 08:04 05/03/24 08:04 05/03/24 08:04 Medications Albuterol Sulfate (Albuterol 2.5 Mg/3 Ml Neb Brit) 2.5 mg NEB [id number] JORGE Last Admin: 05/03/24 07:50 Dose: 2.5 mg Amiodarone HCl (Amiodarone Hcl 200 Mg Tab) 100 mg PO DAILY JORGE Last Admin: 05/03/24 07:09 Dose: Not Given Budesonide (Budesonide 0.5 Mg/2 Ml Neb) 0.5 mg NEB BIDRESP JORGE Last Admin: 05/03/24 07:50 Dose: 0.5 mg Calcitriol (Calcitrol 0.25 Mcg Cap) 0.25 mcg PO DAILY JORGE Last Admin: 05/03/24 07:10 Dose: Not Given Citalopram Hydrobromide (Citalopram 10 Mg Tablet) 40 mg PO DAILY JORGE Last Admin: 05/03/24 07:09 Dose: Not Given Divalproex Sodium (Divalproex Na 125 Mg Cap) 125 mg PO BID JORGE Last Admin: 05/03/24 07:09 Dose: Not Given Norepinephrine Bitartrate 16 (mg/ Dextrose) 266 mls @ 11.949 mls/hr IV TITR JORGE; Protocol Last Admin: 05/03/24 02:20 Dose: 0.2 mcg/kg/min, 23.9 mls/hr Heparin Sodium/Dextrose (Heparin Drip 25,000 Units/5oo Ml Premix) 25,000 unit in 500 mls @ 0 mls/hr IV UD JORGE; Protocol Last Admin: 05/03/24 02:23 Dose: 500 mls Vancomycin HCl 1.5 gm/ Sodium (Chloride) 500 mls @ 250 mls/hr IVPB Q48H JORGE; Protocol Potassium Chloride (Kcl 20 Meq/100 Ml Ivpb (Premix)) 20 meq in 100 mls @ 50 mls/hr IV Q2H JORGE; Protocol Stop: 05/03/24 10:59 Last Admin: 05/03/24 08:42 Dose: 100 mls Meropenem 1,000 mg/ Sodium (Chloride) 100 mls @ 200 mls/hr IV Q8HR JORGE Last Admin: 05/03/24 08:42 Dose: 100 mls Albumin Human 12.5 gm/Furosemide 100 mg/ Sodium Chloride 100 mls @ 20 mls/hr IV Q5H JORGE Last Admin: 05/03/24 08:44 Dose: 100 mls Ipratropium [place] (Ipratropium Brom 0.5mg/2.5ml) 0.5 mg NEB [id number] JORGE Last Admin: 05/03/24 07:50 Dose: 0.5 mg Lactobacillus Acidoph/Bulgaricus (Lactobacillus/Acidophilus Tab) 1 tab PO TID JORGE Last Admin: 05/03/24 07:10 Dose: Not Given Levothyroxine Sodium (Levothyroxine Sod 0.075 Mg Tab) 0.15 mg PO DAILYAC [facility] Last Admin: 05/03/24 06:30 Dose: Not Given Mupirocin (Mupirocin Nasal 2 Appl/1 Gm Tube) 1 appl GUSTAVO BID JORGE Stop: 05/05/24 21:01 Last Admin: 05/03/24 08:43 Dose: 1 appl Pantoprazole Sodium (Pantoprazole 40 Mg Inj) 40 mg IVP DAILY [facility]; Protocol Last Admin: 05/03/24 08:43 Dose: 40 mg Risperidone (Risperidone 0.25 Mg Tablet) 0.25 mg PO BEDTIME [facility] Last Admin: 05/02/24 19:50 Dose: Not Given Sodium Chloride (Sodium Chloride 0.9% 10ml Inj) 10 ml IV UD PRN PRN Reason: Diluant Microbiology Results 05/01/24 09:25 Catheterized Urine [place] Count - Preliminary >100,000 CFU/ML. 05/01/24 09:25 Catheterized Urine - Preliminary Escherichia Coli Esbl 05/01/24 05:45 Blood - Blood Aerobic Blood Culture - Preliminary 05/01/24 05:45 Blood - Blood Blood Culture Gram Stain - Final 05/01/24 05:45 Blood - Blood Anaerobic Blood Culture - Preliminary 05/01/24 05:45 Blood - Blood Gram Stain - Final 05/01/24 06:05 Blood - Blood Aerobic Blood Culture - Preliminary 05/01/24 06:05 Blood - Blood Blood Culture Gram Stain - Final 05/01/24 06:05 Blood - Blood Anaerobic Blood Culture - Preliminary 05/01/24 06:05 Blood - Blood Gram Stain - Final Assessment/ Plan: Nephrology Progress Note No Dyspnea No Chest Pain No Acute Events Overnight Limited IH/ ROS due to mental status Vital Signs, Medications, Blood Work, and Imaging reviewed in the chart General: Awake HEENT: Atraumatic, Other (DMM) Neck: Supple Respiratory: Clear to auscultation bilaterally Cardiovascular: Regular rate/rhythm, Edema Gastrointestinal: Soft and benign, Non-distended Musculoskeletal: No clubbing, No contractures Integumentary: No rashes, No cyanosis Blood work reviewed in the chart. Imagings Data: Exam Date: 05/01/24 Reason for Exam: ams Report Status: Signed EXAM DESCRIPTION: Chest Single View CLINICAL HISTORY: ams COMPARISON: None TECHNIQUE: Single AP view of the chest. FINDINGS: Left-sided cardiac conduction device. Lung volumes adequate. Cardiac silhouette is enlarged. No pneumothorax. Probable small bilateral effusions. Mild bilateral interstitial thickening. No focal consolidation. No acute bony finding. IMPRESSION: 1. Mild bilateral interstitial thickening, could represent mild pulmonary edema. 2. Probable small bilateral effusions. 3. Enlarged cardiac silhouette EXAM: CT brain without contrast HISTORY: Headache, drowsiness COMPARISON: 02/21/2024 TECHNIQUE: Multiple contiguous axial images were obtained and a CT of the brain without contrast. Sagittal and coronal reformats were performed. FINDINGS: No evidence of hydrocephalus, intracranial hemorrhage, or extra-axial fluid collection. Moderate brain atrophy with moderate periventricular and deep white matter chronic microvascular ischemic changes present. No evidence of midline shift or areas of brain edema. The calvarium is intact. The visualized paranasal sinuses and mastoid air cells are essentially clear. Significant carotid atherosclerosis seen. IMPRESSION: No evidence of acute intracranial abnormality. Conclusions/Impression: Stage II SPEEDY in the setting of Septic Shock/ Hypotension and may be complicated by CRS CKD III -No NSAIDs -Maintain renal perfusion with levophed Hypokalemia -Replete as ordered Hypotension -Albumin as ordered -Continue Levophed Acute Respiratory Failure with Hypoxia Diastolic CHF, A/C Moderate Pulmonary HTN Peripheral Edema -Continue Lasix -Continue supplementation oxygen Hypoalbuminemia -Albumin as ordered Anemia in chronic illness -Monitor H&H -PRBC prn -Retacrit prn Septic Shock Acute GNR Cystitis -Continue Abx; monitor vanc level Metabolic Encephalopathy Senile Dementia -Continue supportive care Case reviewed with hospitalist team Hospitalist notes reviewed Patient Care 35min
--- NOTE | 2024-05-03 12:14 | EKG ---
Test Date: 2024-05-01 Test Time: 05:42:19 Well Drill Operator Rotary Drill: CRIS MEASUREMENT RESULTS: Intervals: Rate: 100 FL: 172 QRSD: 36 QT: 312 QTc: 402 [place]: P: 92 FL: 172 QRS: 0 T: 105 INTERPRETIVE STATEMENTS: Paced rhythm Indeterminate axis Consider right ventricular involvement in acute inferior infarct Abnormal ECG Compared to ECG 05/01/2024 05:40:15 Indeterminate axis now present ST (T wave) deviation now present Ventricular-paced complex(es) or rhythm no longer present Sinus tachycardia no longer present Atrial premature complex(es) no longer present Ventricular premature complex(es) no longer present Myocardial infarct finding still present Myocardial infarct finding still present Electronically Signed On 05-03-24 12:13:25 CDT by Damian Hallman
--- NOTE | 2024-05-03 12:14 | EKG ---
Test Date: 2024-05-01 Test Time: 05:43:30 Carton Making Machinist: CRIS MEASUREMENT RESULTS: Intervals: Rate: 98 [place]: QRSD: 144 QT: 414 QTc: 528 [place]: P: [place]: QRS: -71 T: 124 INTERPRETIVE STATEMENTS: Demand pacemaker, interpretation is based on intrinsic rhythm Undetermined rhythm Left axis deviation Left bundle branch block Abnormal ECG Compared to ECG 05/01/2024 05:42:19 Left-axis deviation now present Left bundle-branch block now present Indeterminate axis no longer present ST (T wave) deviation no longer present Myocardial infarct finding no longer present Myocardial infarct finding no longer present Electronically Signed On 05-03-24 12:11:59 CDT by Damian Hallman
[2024-05-03 14:46] LABS: Hematocrit 25.1 % (36.0-45.0); Hemoglobin 8.3 g/dL (12.0-15.0)
[2024-05-04 06:30] LABS: Absolute Eosinophils 0.2 K/uL (0-0.5); Absolute Lymphocytes (CBC) 1.3 K/uL (0.7-4.9); Absolute Monocytes 0.7 K/uL (0.1-1.3); Absolute Neutrophil 4.1 K/uL (1.8-8.0); Basophils % 0.6 % (0-1.3); Eosinophils % 3.8 % (0-4.4); Hematocrit 25.3 % (36.0-45.0); Hemoglobin 8.4 g/dL (12.0-15.0); Lymphocytes % 20.5 % (15.3-44.8); MCH 31.7 pg (27.0-35.0); MCHC 33.3 g/dL (32.0-36.0); MPV 8.2 fL (7.6-11.3); Monocytes % 11.1 % (3.3-12.3); Nucleated Red Blood Cells % 0.1 % (0-0); Platelets 91 thou/uL (152-406); RBC Red Blood Cell Count 2.67 M/uL (3.86-4.86); Red Cell Distribution Width 15.7 % (12.1-15.2)
[2024-05-04 06:50] LABS: Albumin 3.1 g/dL (3.4-5.0); Albumin/Globulin Ratio 1.2 (1.1-1.8); Anion Gap 8.7 mEq/L (5.0-15.0); Bilirubin Total 0.8 mg/dL (0.2-1.0); Globulin 2.5 g/dL (2.3-3.5); Phosphorus 2.6 mg/dL (2.5-4.9); Potassium 3.7 mEq/L (3.5-5.1); Protein, Total 5.6 g/dL (6.4-8.2)
[2024-05-04] MEDS ORDERED: ALBUMIN HUMAN 25% 0 ML IV ONE (08:54)
[2024-05-04] MEDS ORDERED: NA CHLORIDE 0.9% 0 ML ONE (08:54)
[2024-05-04] MEDS ORDERED: VANCOMYCIN 1.5 GM in NA CHLORIDE 0.9% 500 ML IVPB SCH (09:00)
[2024-05-04 09:07] LABS: Blood Morphology Comment NOTED (NOT SEEN); Differential Total Cells Count 100; Eosinophils 4 % (0-3); Hypochromasia 1+; Lymphocytes 24 % (15-42); Monocytes 7 % (0-10); Nucleated Red Blood Cells 1 /100WBC; Platelet Estimate DECR; Segmented Neutrophils 65 % (40-80)
[2024-05-04] MEDS: KCL 20 MEQ/100 mL IVPB 20 MEQ/100 ML BAG IV SCH (09:40)
--- NOTE | 2024-05-04 09:47 | P.PN ---
Subjective Date of Service: 05/04/24 Chief Complaint: AMS, acute hypoxia secondary to CHF exacerbation Pt is resting comfortably in bed. Pt is confused. I could not elicit information from her. Unable to swallow pills. Pt is getting levophed, iv merrem, and heparin drip. Off iv Vanc. No other complaints. Review of Systems is unable to be obtained Physical Examination - Vital Signs Temperature: 97 F Blood Pressure: 105/64 Pulse: 60 Respirations: 23 Pulse Ox (%): 99 - Physical Exam General: Alert, In no apparent distress, Oriented x3 HEENT: Atraumatic, Normocephalic, PERRLA Neck: Supple, 2+ carotid pulse no bruit, JVD not distended Respiratory: Clear to auscultation bilaterally, Normal air movement, Diminished Cardiovascular: No edema, Normal pulses, Regular rate/rhythm, Edema Capillary refill: <2 Seconds Gastrointestinal: Normal bowel sounds, Soft and benign, Non-distended Musculoskeletal: No clubbing, No swelling, No contractures Integumentary: No rashes, No breakdown, No significant lesion Neurological: Normal gait, Normal speech, Normal strength at 5/5 x4 extr, Normal tone, Sensation intact Lymphatics: No axilla or inguinal lymphadenopathy - Studies Microbiology Data (last 24 hrs): 05/01/24 06:05 Blood - Blood Blood Culture Gram Stain - Final 05/01/24 06:05 Blood - Blood Gram Stain - Final 05/01/24 05:45 Blood - Blood Blood Culture Gram Stain - Final 05/01/24 05:45 Blood - Blood Gram Stain - Final Medications List Reviewed: Yes Assessment And Plan - Plan AMS: Pt completed Levaquin for UTI the day before this admission. Will continue merrem due to ESBL E.coli in urine cx. Septic shock 2/2 UTI: Continue iv merrem, levophed due to ESBL E.coli. No growth on blood cx. CHF / Pulm edema: BNP is 2397. Will continue Lasix / Albumin as BP permits, strict I/O and daily weight. A. fib: Will continue telemetry, amiodarone, and heparin drip Hypotension: Low threshold to start pressor. Hold BP meds. SPEEDY on CKD stage, 3: Cr is 2.51 <- 2.78 <- 2.61. Likely worsened by septic shock. Will avoid nephrotoxins and monitor renal function. Nephrology is following. Dementia: Will continue supportive care. Hypothyroidism: TSH is 6.13. Will continue synthroid. Anemia: Hgb is8.8. Will monitor H/H. DVT ppx: heparin Code: full Dispo: Pending hospital course. Continue ICU level of care.
[2024-05-04] MEDS: HYDROCORTISONE SUC 100 MG INJ IV ONE ×2 (10:00→13:32)
--- NOTE | 2024-05-04 11:48 | P.PN ---
Nephrology Progress Note Pt remains in the ICU, poor historian with her dementia, appears anxious, remains on pressor support but also getting IV Albumin/Lasix combo although no large vol diuresis output recorded Vital Signs, Medications, Blood Work, and Imaging reviewed in the chart General: Awake, anxious HEENT: Atraumatic, LFNC Neck: Supple Respiratory: b/l air entry, no wheezing Cardiovascular: Non tachy, 2+ distal edema b/l Gastrointestinal: Soft, obese, NT, allred present Musculoskeletal: Shins non tender Integumentary: No rashes Neuro: Awake, mostly non verbal, no myoclonus Blood work reviewed in the chart. Conclusions/Impression: Stage II SPEEDY multifactorial in the setting of likely underlying CKD NOS -Cr level marginally lower from peak levels, cont to monitor closely. Maintain allred, monitor UOP closely. -Dose meds for reduced CrCl Hypotension in the setting of sepsis Acute Ecoli ESBL Cystitis -Continue Abx per primary team -Remains on levophed Acute Respiratory Failure with Hypoxia Diastolic CHF, chronic Peripheral Edema -Clinically stable -IV Albumin/Lasix (100 mg) infusion ordered by primary team but need to clarify order as ordered as q5h per them, no large vol diuresis recorded but need to be cautious given her hypotension, sepsis and SPEEDY Anemia in the setting of illnesses -Monitor H&H closely Stepan Bourgeois MD, JADE
[2024-05-04] MEDS: FUROSEMIDE 20 MG/ 2ML VIAL IV SCH (18:13)
[2024-05-04] MEDS ORDERED: NA CHLORIDE 0.9% 100 ML ONE (19:43)
[2024-05-05 05:21] LABS: Absolute Lymphocytes (CBC) 1.1 K/uL (0.7-4.9); Absolute Monocytes 0.6 K/uL (0.1-1.3); Absolute Neutrophil 3.9 K/uL (1.8-8.0); Basophils % 0.3 % (0-1.3); Eosinophils % 0.2 % (0-4.4); Hemoglobin 8.7 g/dL (12.0-15.0); Lymphocytes % 19.5 % (15.3-44.8); MCH 30.9 pg (27.0-35.0); MCHC 32.3 g/dL (32.0-36.0); MCV 95.7 fL (80-100); MPV 8.4 fL (7.6-11.3); Monocytes % 10.2 % (3.3-12.3); Neutrophils % 69.8 % (41.7-73.7); Nucleated Red Blood Cells % 0.2 % (0-0); Platelets 119 thou/uL (152-406); RBC Red Blood Cell Count 2.82 M/uL (3.86-4.86); Red Cell Distribution Width 15.6 % (12.1-15.2)
[2024-05-05 05:47] LABS: Albumin 2.8 g/dL (3.4-5.0); Anion Gap 6.8 mEq/L (5.0-15.0); Bilirubin Total 0.7 mg/dL (0.2-1.0); Globulin 2.9 g/dL (2.3-3.5); Phosphorus 2.4 mg/dL (2.5-4.9); Protein, Total 5.7 g/dL (6.4-8.2)
[2024-05-05 05:49] LABS: Magnesium 1.8 mg/dL (1.6-2.4); Potassium 3.8 mEq/L (3.5-5.1)
[2024-05-05] MEDS: POTASSIUM PHOS IN 0.9 % NACL 15 MMOL/250 ML BAG IV ONE (06:06)
[2024-05-05] MEDS: MAGNESIUM SULFATE 1 gm IVPB 1 GM/100 ML BAG IV ONE (06:06)
--- NOTE | 2024-05-05 09:25 | P.PN ---
Subjective Date of Service: 05/05/24 Chief Complaint: AMS, acute hypoxia secondary to CHF exacerbation slept last pm per JAVA WEB APPLICATION DEVELOPER. Pt with return of pitting edema. Changed to pureed diet. Stop Heparin and restart Xarelto 20mg po daily. <Rachel Yoder - Last Filed: 05/05/24 09:19> Date of Service: 05/05/24 <Bhumi Mills Sondra - Last Filed: 05/05/24 22:05> Review of Systems 10-point ROS is otherwise unremarkable General: As per HPI Respiratory: Shortness of Breath, Wheezing Neurological: Weakness, Other (More alert and responsive) <Rachel Yoder - Last Filed: 05/05/24 09:19> Physical Examination - Vital Signs Temperature: 97.6 F Blood Pressure: 100/57 Pulse: 63 Respirations: 25 Pulse Ox (%): 99 - Physical Exam General: Oriented x1, Cooperative, Demented, Obese HEENT: Atraumatic, Normocephalic Neck: Supple Respiratory: Normal air movement, Expiratory wheezes Cardiovascular: Edema (3+ pretibial), Irregular heart rate/rhythm Capillary refill: <2 Seconds Gastrointestinal: Soft and benign Musculoskeletal: No clubbing Integumentary: No rashes, Other (Pallor) Neurological: Abnormal speech, Abnormal tone, Dementia Lymphatics: No axilla or inguinal lymphadenopathy Urinary: Arreaga catheter (No large-volume diuresis) External genitalia: Deferred Rectal: Deferred - Studies Microbiology Data (last 24 hrs): 05/01/24 09:25 Catheterized Urine [place] Count - Final >100,000 CFU/ML. 05/01/24 09:25 Catheterized Urine - Final Escherichia Coli Esbl Enterococcus Faecalis 05/01/24 06:05 Blood - Blood Blood Culture Gram Stain - Final 05/01/24 06:05 Blood - Blood Gram Stain - Final 05/01/24 05:45 Blood - Blood Blood Culture Gram Stain - Final 05/01/24 05:45 Blood - Blood Gram Stain - Final Medications List Reviewed: Yes <Rachel Yoder - Last Filed: 05/05/24 09:19> - Studies Microbiology Data (last 24 hrs): 05/01/24 05:45 Blood - Blood Aerobic Blood Culture - Final Enterococcus Faecium 05/01/24 05:45 Blood - Blood Blood Culture Gram Stain - Final 05/01/24 05:45 Blood - Blood Anaerobic Blood Culture - Final Enterococcus Faecium 05/01/24 05:45 Blood - Blood Gram Stain - Final 05/01/24 06:05 Blood - Blood Aerobic Blood Culture - Final Enterococcus Faecium 05/01/24 06:05 Blood - Blood Blood Culture Gram Stain - Final 05/01/24 06:05 Blood - Blood Anaerobic Blood Culture - Final Enterococcus Faecium 05/01/24 06:05 Blood - Blood Gram Stain - Final <Bhumi Mills Sondra - Last Filed: 05/05/24 22:05> Assessment And Plan - Plan AMS with decreased responsiveness Respiratory failure secondary to CHF with pitting edema History of atrial fibrillation with Xarelto CKD with hypotension Anemia of chronic disease Severe sepsis with shock and UTI (gram neg rods) Patient's shortness of breath has improved, remains slightly tachypneic, expiratory wheezing Edema of the lower extremities has improved but still with 2+ pitting edema, Lasix drip DC'd 05/04/2024 Patient with decompensated congestive heart failure, Dr. Hallman following, patient remains on albumin/Lasix drip, PRBCs this morning 05/03/2024 for hemoglobin of 8. O2 via N/C Echocardiogram YANNA inhibitor/ARB -hold secondary to renal insufficiency and hypotension Beta-kaushik hold for now secondary to hypotension Aggressive diuresis - lasix dose held for hypotension and increased titration of levophed 05/03/2024 remains on Levophed, will start albumin/lasix drip Arreaga with strict Is & Os, continue strict VENANCIO output over the past 2 days and significant Monitor renal function and electrolytes, creatinine stable but mildly increasing trend Repeat chest x-ray in 2 days Daily weight Home meds per [place] OCT except as above -stop po meds as swallow screen reveals inability to follow commands continue Xarelto - started on Heparin drip Protonix 05/02/24 Started levophed last pm, titrated upward overnight started Heparin drip last pm as pt unable to take po, changed to p.o. Xarelto 05/05/2024 CKD worsening with hypotension, lasix held last pm, Pt with cardiorenal failure probably secondary to sepsis with shock. Alb/lasix drip started, nephrology consult placed this morning, Dr. Hopper following. Lasix drip DC'd 05/04/2024, Lasix 20 mg IV twice daily ordered, increased pitting edema 05/05/2024 although no large volume diuresis, patient remains on Levophed 0.2 mics, Lasix increased to 20 mg IV 3 times daily ECHO done yesterday, pacemaker intact, Dr. Hallman following, medical managementpoor prognosis Rocephin given yesterday, today will begin Cefepime/Vanco - Pt switched to Merrem for ESBL E. coli, Blood cultures without growth at 24 hours, awaiting final blood culture Discharge Plan: Shelter Plan to discharge in: Greater than 2 days <Rachel Yoder - Last Filed: 05/05/24 09:19> - Plan Pt seen and examined. I agree with the not by the SASH MAKER. She is still getting levophed and iv abx. Will start Daptomycin for VRE. His family made her DNR. <Bhumi Mills - Last Filed: 05/05/24 22:05>
[2024-05-05] MEDS ORDERED: FUROSEMIDE 20 MG/ 2ML VIAL IV SCH ×3 (10:00→14:00)
--- NOTE | 2024-05-05 10:27 | P.PN ---
Subjective Date of Service: 05/05/24 Chief Complaint: AMS, acute hypoxia secondary to CHF exacerbation Pt is resting comfortably in bed. Pt is confused. I could not elicit information from her. Unable to swallow pills. Pt is getting levophed, iv merrem, and heparin drip. We are unable to wean her off levophed. She has leg edema. No other complaints. Review of Systems is unable to be obtained Physical Examination - Vital Signs Temperature: 97.6 F Blood Pressure: 105/90 Pulse: 60 Respirations: 22 Pulse Ox (%): 100 - Physical Exam General: Alert, In no apparent distress, Oriented x3 HEENT: Atraumatic, Normocephalic, PERRLA Neck: Supple, 2+ carotid pulse no bruit, JVD not distended Respiratory: Clear to auscultation bilaterally, Normal air movement Cardiovascular: No edema, Normal pulses, Regular rate/rhythm, Normal S1 S2 Capillary refill: <2 Seconds Gastrointestinal: Normal bowel sounds, Soft and benign, Non-distended Musculoskeletal: No clubbing, No swelling, No contractures Integumentary: No rashes, No breakdown, No significant lesion, No tenderness/swelling Neurological: Normal speech, Normal strength at 5/5 x4 extr, Normal tone Lymphatics: No axilla or inguinal lymphadenopathy - Studies Microbiology Data (last 24 hrs): 05/01/24 09:25 Catheterized Urine [place] Count - Final >100,000 CFU/ML. 05/01/24 09:25 Catheterized Urine - Final Escherichia Coli Esbl Enterococcus Faecalis 05/01/24 06:05 Blood - Blood Blood Culture Gram Stain - Final 05/01/24 06:05 Blood - Blood Gram Stain - Final 05/01/24 05:45 Blood - Blood Blood Culture Gram Stain - Final 05/01/24 05:45 Blood - Blood Gram Stain - Final Medications List Reviewed: Yes Assessment And Plan - Plan AMS: Pt completed Levaquin for UTI the day before this admission. Will continue merrem due to ESBL E.coli in urine cx. Septic shock 2/2 UTI: Continue iv merrem, levophed due to ESBL E.coli. No growth on blood cx. Acute on chronic Diastolic heart failure exacerbation / Pulm edema: BNP is 2397. Will continue Lasix / Albumin as BP permits, strict I/O and daily weight. Echo shows EF 55 - 60% with grade III diastolic dysfunction. A. fib: Will continue telemetry, amiodarone, and heparin drip Hypotension: Low threshold to start pressor. Hold BP meds. SPEEDY on CKD stage, 3: Cr is 2.46<- 2.51 <- 2.78 <- 2.61. Likely worsened by septic shock. Will avoid nephrotoxins and monitor renal function. Nephrology is following. Dementia: Will continue supportive care. Hypothyroidism: TSH is 6.13. Will continue synthroid. Anemia: Hgb is8.8. Will monitor H/H. DVT ppx: heparin Code: full Dispo: Pending hospital course. Continue ICU level of care. Will discuss goals of care with her daughter, Melva ( [phone])
[2024-05-05] MEDS: FUROSEMIDE 20 MG/ 2ML VIAL IV SCH (13:40)
[2024-05-05] MEDS: RIVAROXABAN 10 MG TABLET PO SCH (17:07)
[2024-05-05] MEDS: DAPTOmycin 500 MG in NA CHLORIDE 0.9% 100 ML IVPB SCH (18:00)
--- NOTE | 2024-05-05 21:29 | P.PN ---
Date of Service: 05/05/24 Vital Signs Temp Pulse Resp BP Pulse Ox 97.8 F 69 20 106/56 L 96 05/05/24 19:45 05/05/24 21:15 05/05/24 21:15 05/05/24 21:15 05/05/24 21:15 Medications Albuterol Sulfate (Albuterol 2.5 Mg/3 Ml Neb Brit) 2.5 mg NEB [id number] JORGE Last Admin: 05/05/24 19:49 Dose: 2.5 mg Amiodarone HCl (Amiodarone Hcl 200 Mg Tab) 100 mg PO DAILY JORGE Last Admin: 05/05/24 08:21 Dose: 100 mg Budesonide (Budesonide 0.5 Mg/2 Ml Neb) 0.5 mg NEB BIDRESP JORGE Last Admin: 05/05/24 19:50 Dose: Not Given Calcitriol (Calcitrol 0.25 Mcg Cap) 0.25 mcg PO DAILY JORGE Last Admin: 05/05/24 08:22 Dose: 0.25 mcg Citalopram Hydrobromide (Citalopram 10 Mg Tablet) 40 mg PO DAILY JORGE Last Admin: 05/05/24 08:21 Dose: 40 mg Divalproex Sodium (Divalproex Na 125 Mg Cap) 125 mg PO BID JORGE Last Admin: 05/05/24 21:08 Dose: 125 mg Furosemide (Furosemide 20 Mg/ 2ml Vial) 40 mg IV Q6H JORGE Last Admin: 05/05/24 21:09 Dose: 40 mg Norepinephrine Bitartrate 16 (mg/ Dextrose) 266 mls @ 11.949 mls/hr IV TITR JORGE; Protocol Last Titration: 05/05/24 20:15 Dose: 0.2 mcg/kg/min, 23.9 mls/hr Meropenem 1,000 mg/ Sodium (Chloride) 100 mls @ 200 mls/hr IV Q12HR JORGE Last Admin: 05/05/24 21:08 Dose: 100 mls Daptomycin 500 mg/ Sodium (Chloride) 100 mls @ 200 mls/hr IVPB Q24H [facility]; Protocol Ipratropium [place] (Ipratropium Brom 0.5mg/2.5ml) 0.5 mg NEB [id number] [facility] Last Admin: 05/05/24 19:49 Dose: 0.5 mg Lactobacillus Acidoph/[place] (Lactobacillus/Acidophilus Tab) 1 tab PO TID [facility] Last Admin: 05/05/24 21:08 Dose: 1 tab Levothyroxine Sodium (Levothyroxine Sod 0.075 Mg Tab) 0.15 mg PO DAILYAC [facility] Last Admin: 05/05/24 05:45 Dose: 0.15 mg Pantoprazole Sodium (Pantoprazole 40 Mg Inj) 40 mg IVP DAILY [facility]; Protocol Last Admin: 05/05/24 08:22 Dose: 40 mg Risperidone (Risperidone 0.25 Mg Tablet) 0.25 mg PO BEDTIME [facility] Last Admin: 05/05/24 21:09 Dose: 0.25 mg Rivaroxaban (Rivaroxaban 10 Mg Tablet) 20 mg PO DAILY AT SUPPER [facility] Last Admin: 05/05/24 17:07 Dose: 20 mg Sodium Chloride (Sodium Chloride 0.9% 10ml Inj) 10 ml IV UD PRN PRN Reason: Diluant Microbiology Results 05/01/24 05:45 Blood - Blood Aerobic Blood Culture - Final Enterococcus Faecium 05/01/24 05:45 Blood - Blood Blood Culture Gram Stain - Final 05/01/24 05:45 Blood - Blood Anaerobic Blood Culture - Final Enterococcus Faecium 05/01/24 05:45 Blood - Blood Gram Stain - Final 05/01/24 06:05 Blood - Blood Aerobic Blood Culture - Final Enterococcus Faecium 05/01/24 06:05 Blood - Blood Blood Culture Gram Stain - Final 05/01/24 06:05 Blood - Blood Anaerobic Blood Culture - Final Enterococcus Faecium 05/01/24 06:05 Blood - Blood Gram Stain - Final 05/01/24 09:25 Catheterized Urine [place] Count - Final >100,000 CFU/ML. 05/01/24 09:25 Catheterized Urine - Final Escherichia Coli Esbl Enterococcus Faecalis Assessment/ Plan: Nephrology Progress Note No Chest Pain No Acute Events Overnight Limited IH/ ROS due to mental status Vital Signs, Medications, Blood Work, and Imaging reviewed in the chart General: Awake HEENT: Atraumatic, Other (DMM) Neck: Supple Respiratory: Clear to auscultation bilaterally Cardiovascular: Regular rate/rhythm, Edema Gastrointestinal: Soft and benign, Non-distended Musculoskeletal: No clubbing, No contractures Integumentary: No rashes, No cyanosis Blood work reviewed in the chart. Imagings Data: Exam Date: 05/01/24 Reason for Exam: ams Report Status: Signed EXAM DESCRIPTION: Chest Single View CLINICAL HISTORY: ams COMPARISON: None TECHNIQUE: Single AP view of the chest. FINDINGS: Left-sided cardiac conduction device. Lung volumes adequate. Cardiac silhouette is enlarged. No pneumothorax. Probable small bilateral effusions. Mild bilateral interstitial thickening. No focal consolidation. No acute bony finding. IMPRESSION: 1. Mild bilateral interstitial thickening, could represent mild pulmonary edema. 2. Probable small bilateral effusions. 3. Enlarged cardiac silhouette EXAM: CT brain without contrast HISTORY: Headache, drowsiness COMPARISON: 02/21/2024 TECHNIQUE: Multiple contiguous axial images were obtained and a CT of the brain without contrast. Sagittal and coronal reformats were performed. FINDINGS: No evidence of hydrocephalus, intracranial hemorrhage, or extra-axial fluid collection. Moderate brain atrophy with moderate periventricular and deep white matter ch ronic microvascular ischemic changes present. No evidence of midline shift or areas of brain edema. The calvarium is intact. The visualized paranasal sinuses and mastoid air cells are essentially clear. Significant carotid atherosclerosis seen. IMPRESSION: No evidence of acute intracranial abnormality. Conclusions/Impression: Stage II SPEEDY in the setting of Septic Shock/ Hypotension and may be complicated by CRS CKD III -No NSAIDs -Maintain renal perfusion with levophed Hypokalemia -Replete prn Hypotension -Albumin as ordered -Continue Levophed -Consider an A-line for better BP readings Acute Respiratory Failure with Hypoxia Diastolic CHF, A/C Moderate Pulmonary HTN Peripheral Edema -Increase Lasix -Continue supplementation oxygen Hypoalbuminemia -Albumin as ordered Anemia in chronic illness -Monitor H&H -PRBC prn -Retacrit prn Septic Shock Acute GNR Cystitis -Continue Abx; monitor vanc level Metabolic Encephalopathy Senile Dementia -Continue supportive care Case reviewed with hospitalist team Hospitalist notes reviewed Patient Care 40min
[2024-05-06 06:39] LABS: Absolute Eosinophils 0.3 K/uL (0-0.5); Absolute Lymphocytes (CBC) 1.6 K/uL (0.7-4.9); Absolute Monocytes 0.9 K/uL (0.1-1.3); Absolute Neutrophil 3.9 K/uL (1.8-8.0); Basophils % 0.6 % (0-1.3); Eosinophils % 3.7 % (0-4.4); Hematocrit 27.8 % (36.0-45.0); Hemoglobin 9.1 g/dL (12.0-15.0); Lymphocytes % 23.8 % (15.3-44.8); MCH 31.4 pg (27.0-35.0); MCHC 32.8 g/dL (32.0-36.0); MCV 95.5 fL (80-100); MPV 7.6 fL (7.6-11.3); Monocytes % 13.8 % (3.3-12.3); Neutrophils % 58.1 % (41.7-73.7); Nucleated Red Blood Cells % 0.1 % (0-0); Platelets 112 thou/uL (152-406); RBC Red Blood Cell Count 2.91 M/uL (3.86-4.86); Red Cell Distribution Width 15.9 % (12.1-15.2)
[2024-05-06 06:55] LABS: Albumin 2.8 g/dL (3.4-5.0); Anion Gap 4.4 mEq/L (5.0-15.0); Bilirubin Total 0.8 mg/dL (0.2-1.0); Globulin 2.9 g/dL (2.3-3.5); Magnesium 1.9 mg/dL (1.6-2.4); Phosphorus 2.5 mg/dL (2.5-4.9); Potassium 3.4 mEq/L (3.5-5.1); Protein, Total 5.7 g/dL (6.4-8.2)
--- NOTE | 2024-05-06 08:57 | P.PN ---
Subjective Date of Service: 05/06/24 Chief Complaint: AMS, acute hypoxia secondary to CHF exacerbation slept last pm per [employer]. Pt with return of pitting edema. Changed to pureed diet. Stop Heparin and restart Xarelto 20mg po daily. 05/06/2024 sleeping, audible expiratory wheezing, 1 L urine output overnight <Rachel Yoder - Last Filed: 05/06/24 08:49> Date of Service: 05/06/24 <Linda Boyle - Last Filed: 05/13/24 21:45> Review of Systems is unable to be obtained General: Weakness, Malaise Neurological: Confusion, Other (Dementia) Lymphatics: As per HPI <Rachel Yoder - Last Filed: 05/06/24 08:49> Physical Examination - Vital Signs Temperature: 98.3 F Blood Pressure: 128/81 Pulse: 72 Respirations: 21 Pulse Ox (%): 98 - Physical Exam General: Demented, Obese HEENT: Atraumatic, Normocephalic Neck: Supple Respiratory: Crackles/rales, Expiratory wheezes Cardiovascular: Edema, Irregular heart rate/rhythm Capillary refill: <2 Seconds Gastrointestinal: Soft and benign Musculoskeletal: No clubbing Integumentary: Other (Pallor, scattered ecchymosis) Neurological: Abnormal speech, Abnormal strength, Abnormal tone, Abnormal affect, Dementia Lymphatics: No axilla or inguinal lymphadenopathy Urinary: Arreaga catheter External genitalia: Deferred Rectal: Deferred - Studies Microbiology Data (last 24 hrs): 05/01/24 05:45 Blood - Blood Aerobic Blood Culture - Final Enterococcus Faecium Staphylococcus Haemolyticus 05/01/24 05:45 Blood - Blood Blood Culture Gram Stain - Final 05/01/24 05:45 Blood - Blood Anaerobic Blood Culture - Final Enterococcus Faecium 05/01/24 05:45 Blood - Blood Gram Stain - Final 05/01/24 06:05 Blood - Blood Aerobic Blood Culture - Final Enterococcus Faecium 05/01/24 06:05 Blood - Blood Blood Culture Gram Stain - Final 05/01/24 06:05 Blood - Blood Anaerobic Blood Culture - Final Enterococcus Faecium 05/01/24 06:05 Blood - Blood Gram Stain - Final Medications List Reviewed: Yes <Rachel Yoder - Last Filed: 09/29/24 08:49> Assessment And Plan - Plan AMS with decreased responsiveness Respiratory failure secondary to CHF with pitting edema History of atrial fibrillation with Xarelto CKD with hypotension Anemia of chronic disease Severe sepsis with shock and UTI (gram neg rods) Patient's shortness of breath has improved, remains slightly tachypneic, expiratory wheezing Edema of the lower extremities has improved but still with 2+ pitting edema, Lasix drip DC'd 05/04/2024, Lasix changed to 40 mg IV every 6h Patient with decompensated congestive heart failure, Dr. Hallman following, patient remains on albumin/Lasix drip, PRBCs this morning 05/03/2024 for hemoglobin of 8. O2 via N/C Echocardiogram YANNA inhibitor/ARB -hold secondary to renal insufficiency and hypotension Beta-kaushik hold for now secondary to hypotension Aggressive diuresis - lasix dose held for hypotension and increased titration of levophed 05/03/2024 remains on Levophed, will start albumin/lasix drip Arreaga with strict Is & Os, continue strict VENANCIO output over the past 2 days and significant Monitor renal function and electrolytes, creatinine stable but mildly increasing trend Repeat chest x-ray in 2 days Daily weight Home meds per ID OCT except as above -stop po meds as swallow screen reveals inability to follow commands continue Xarelto - started on Heparin drip Protonix 05/02/24 Started levophed last pm, titrated upward overnight started Heparin drip last pm as pt unable to take po, changed to p.o. Xarelto 05/05/2024 CKD worsening with hypotension, lasix held last pm, Pt with cardiorenal failure probably secondary to sepsis with shock. Alb/lasix drip started, nephrology consult placed this morning, Dr. Hopper following. Lasix drip DC'd 05/04/2024, Lasix 20 mg IV twice daily ordered, increased pitting edema 05/05/2024 although no large volume diuresis, patient remains on Levophed 0.2 mics, Lasix increased to 20 mg IV 3 times daily-> changed to 40 mg IV every 6 H ECHO done yesterday, pacemaker intact, Dr. Hallman following, medical managementpoor prognosis Rocephin given yesterday, today will begin Cefepime/Vanco - Pt switched to Merrem for ESBL E. coli, Blood cultures without growth at 24 hours, awaiting final blood culture 05/06/2024 Unable to wean Levophed and manage Lasix well without more accurate BP readings, discussed art line. She did have 1 L urine output overnight and Levophed at 1.5 mics Ms. [place] has advanced dementia and is a long-term resident in a SNF, repeat conversation regarding CODE STATUS. Daughter willing to change to DNR to avoid more invasive testing. Will discuss with family members hospice status. Currently patient is more responsive, although confused, she did pass her swallow study and is receiving p.o. nutrition/meds Microanalysis of blood and urine and repeat results as above. Currently placed patient is on Merrem and added daptomycin for VRE 05/05/2024 During this hospitalization she has received 1 unit of blood, albumin. Currently hemoglobin is 9.1/albumin 2.1 <Rachel Yoder - Last Filed: 05/06/24 08:49> Date of Service: 05/06/24 Patient was seen and examined. Events of the last 24 hours have been noted. Spoke with with TIFF regarding patient's clinical picture after evaluating and examining the patient independently. I performed a substantial part of the MDM during this patient's care today. I personally made or approved the documented management plan and acknowledge its risk of complications. I agree with the findings and documentation provided in the TIFF's notes. <Linda Boyle - Last Filed: 05/13/24 21:45>
[2024-05-06] MEDS: DAPTOmycin 500 MG in NA CHLORIDE 0.9% 100 ML IVPB SCH (09:48)
[2024-05-06] MEDS: KCL 20 MEQ/100 mL IVPB 20 MEQ/100 ML BAG IV SCH (10:36)
--- NOTE | 2024-05-06 13:01 | P.PN ---
Subjective Date of Service: 05/06/24 Chief Complaint: AMS, acute hypoxia secondary to CHF exacerbation Subjective: No new changes, No C/O voiced, Tolerating diet, Ambulating, Improving Review of Systems 10-point ROS is otherwise unremarkable Physical Examination - Vital Signs Temperature: 98.3 F Blood Pressure: 95/53 Pulse: 60 Respirations: 19 Pulse Ox (%): 99 - Physical Exam General: Alert, In no apparent distress HEENT: Atraumatic, PERRLA, EOMI Neck: Supple, JVD not distended Respiratory: Clear to auscultation bilaterally, Normal air movement Cardiovascular: Regular rate/rhythm, Normal S1 S2 Gastrointestinal: Normal bowel sounds, No tenderness Musculoskeletal: No tenderness Integumentary: No rashes Neurological: Normal speech, Normal tone, Normal affect Lymphatics: No axilla or inguinal lymphadenopathy - Studies Microbiology Data (last 24 hrs): 05/01/24 05:45 Blood - Blood Aerobic Blood Culture - Final Enterococcus Faecium Staphylococcus Haemolyticus 05/01/24 05:45 Blood - Blood Blood Culture Gram Stain - Final 05/01/24 05:45 Blood - Blood Anaerobic Blood Culture - Final Enterococcus Faecium 05/01/24 05:45 Blood - Blood Gram Stain - Final 05/01/24 06:05 Blood - Blood Aerobic Blood Culture - Final Enterococcus Faecium 05/01/24 06:05 Blood - Blood Blood Culture Gram Stain - Final 05/01/24 06:05 Blood - Blood Anaerobic Blood Culture - Final Enterococcus Faecium 05/01/24 06:05 Blood - Blood Gram Stain - Final Medications List Reviewed: Yes Assessment And Plan - Current Problems (Diagnosis) (1) Congestive heart failure Current Visit: Yes Status: Acute Plan: Echo shows normal EF with grade 3 DD, moderate pulmonary hypertension continue lasix 40 mg IV q6 hours Monitor input and output. Monitor and correct electrolytes. (2) Atrial fibrillation Current Visit: Yes Status: Acute Plan: currently paced. continue Amiodarone 100 mg daily Continue Xarelto (3) Anemia Current Visit: Yes Status: Acute Plan: Monitor Hgb closely.
[2024-05-07] MEDS ORDERED: NOREPINEPHRINE 4 MG/4 ML VIAL ONE (03:40)
[2024-05-07] MEDS: NA CHLORIDE 0.9% 250 ML ONE (03:45)
[2024-05-07 06:23] LABS: Absolute Basophils 0.1 K/uL (0-0.5); Absolute Eosinophils 0.3 K/uL (0-0.5); Absolute Lymphocytes (CBC) 1.8 K/uL (0.7-4.9); Absolute Monocytes 1.2 K/uL (0.1-1.3); Absolute Neutrophil 6.4 K/uL (1.8-8.0); Basophils % 0.6 % (0-1.3); Hematocrit 30.1 % (36.0-45.0); Hemoglobin 10.1 g/dL (12.0-15.0); Lymphocytes % 18.3 % (15.3-44.8); MCH 31.7 pg (27.0-35.0); MCHC 33.4 g/dL (32.0-36.0); MCV 94.8 fL (80-100); MPV 7.6 fL (7.6-11.3); Monocytes % 12.7 % (3.3-12.3); Neutrophils % 65.4 % (41.7-73.7); Platelets 160 thou/uL (152-406); RBC Red Blood Cell Count 3.17 M/uL (3.86-4.86); Red Cell Distribution Width 15.8 % (12.1-15.2)
[2024-05-07 06:41] LABS: ALT/SGPT 16 U/L (13-56); Albumin 2.8 g/dL (3.4-5.0); Albumin/Globulin Ratio 0.9 (1.1-1.8); Alkaline Phosphatase 85 U/L (45-117); Anion Gap 6.5 mEq/L (5.0-15.0); BUN Blood Urea Nitrogen 34 mg/dL (7-18); Bicarbonate 34 mEq/L (21-32); Bilirubin Total 0.8 mg/dL (0.2-1.0); Globulin 3.1 g/dL (2.3-3.5); Glomerular Filtration Rate 26 ml/min (=/>90); Glucose Level 105 mg/dL (74-106); Magnesium 1.7 mg/dL (1.6-2.4); Phosphorus 2.3 mg/dL (2.5-4.9); Potassium 3.5 mEq/L (3.5-5.1); Protein, Total 5.9 g/dL (6.4-8.2); Sodium Level 136 mEq/L (136-145)
[2024-05-07 06:48] LABS: AST/SGOT < 10 U/L (15-37)
[2024-05-07] MEDS: FUROSEMIDE 40 MG/4 ML VIAL IV SCH (08:00)
[2024-05-07] MEDS: POTASSIUM PHOS IN 0.9 % NACL 15 MMOL/250 ML BAG IV ONE (08:10)
[2024-05-07] MEDS: KCL 20 MEQ/100 mL IVPB 20 MEQ/100 ML BAG IV SCH (08:11)
[2024-05-07] MEDS: MAGNESIUM SULFATE 1 gm IVPB 1 GM/100 ML BAG IV ONE (08:11)
--- NOTE | 2024-05-07 10:55 | P.PN ---
Subjective Date of Service: 05/07/24 Chief Complaint: AMS, acute hypoxia secondary to CHF exacerbation Pt is resting comfortably in bed. Pt is more alert today, but still confused. Pt is getting levophed, iv Dapto, merrem, and heparin drip. We are unable to wean her off levophed. The leg edema is improving. No other complaints. Review of Systems is unable to be obtained Physical Examination - Vital Signs Temperature: 97.3 F Blood Pressure: 82/50 Pulse: 67 Respirations: 25 Pulse Ox (%): 96 - Physical Exam General: Alert, In no apparent distress, Oriented x3 HEENT: Atraumatic, Normocephalic, PERRLA Neck: Supple, 2+ carotid pulse no bruit Respiratory: Clear to auscultation bilaterally, Normal air movement Cardiovascular: Normal pulses, Regular rate/rhythm, Normal S1 S2, Edema Capillary refill: <2 Seconds Gastrointestinal: Normal bowel sounds, Soft and benign, Non-distended Musculoskeletal: No clubbing, No swelling, No contractures Integumentary: No rashes, No breakdown, No significant lesion Neurological: Normal speech, Normal strength at 5/5 x4 extr Lymphatics: No axilla or inguinal lymphadenopathy - Studies Microbiology Data (last 24 hrs): 05/01/24 05:45 Blood - Blood Aerobic Blood Culture - Final Enterococcus Faecium Staphylococcus Haemolyticus 05/01/24 05:45 Blood - Blood Blood Culture Gram Stain - Final 05/01/24 05:45 Blood - Blood Anaerobic Blood Culture - Final Enterococcus Faecium 05/01/24 05:45 Blood - Blood Gram Stain - Final 05/01/24 06:05 Blood - Blood Aerobic Blood Culture - Final Enterococcus Faecium 05/01/24 06:05 Blood - Blood Blood Culture Gram Stain - Final 05/01/24 06:05 Blood - Blood Anaerobic Blood Culture - Final Enterococcus Faecium 05/01/24 06:05 Blood - Blood Gram Stain - Final Medications List Reviewed: Yes Assessment And Plan - Plan AMS: Pt completed Levaquin for UTI the day before this admission. Will continue merrem due to ESBL E.coli in urine cx. Septic shock 2/2 UTI: Continue iv merrem, levophed due to ESBL E.coli. No growth on blood cx. 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 Blood cx s growing E. faecium. Acute on chronic Diastolic heart failure exacerbation / Pulm edema: BNP is 2397. Will continue Lasix 40mg iv q6h as BP permits, strict I/O and daily weight. Echo shows EF 55 - 60% with grade III diastolic dysfunction. A. fib: Will continue telemetry, amiodarone, and heparin drip Hypotension: Continue pressor. Hold BP meds. Will add midodrine in order to wean her off levophed. SPEEDY on CKD stage, 3: Cr is 1.97<- 2.46<- 2.51 <- 2.78 <- 2.61. Likely worsened by septic shock. Will avoid nephrotoxins and monitor renal function. Nephrology is following. Dementia: Will continue supportive care. Hypothyroidism: TSH is 6.13. Will continue synthroid. Anemia: Hgb is8.8. Will monitor H/H. DVT ppx: xarelto Code: DNR Dispo: Pending hospital course. Continue ICU level of care. Her family member made her DNR. Her daughter, Melva ( [phone])
[2024-05-07] MEDS: MIDODRINE HCL 5 MG TABLET PO SCH (13:33)
[2024-05-07] MEDS: NA CHLORIDE 0.9% 100 ML ONE (20:55)
--- NOTE | 2024-05-07 21:37 | P.PN ---
Date of Service: 05/07/24 Vital Signs Temp Pulse Resp BP Pulse Ox 98.0 F 81 22 H 116/63 94 05/07/24 20:00 05/07/24 21:00 05/07/24 21:00 05/07/24 21:00 05/07/24 21:00 Medications Albuterol Sulfate (Albuterol 2.5 Mg/3 Ml Neb Brit) 2.5 mg NEB [id number] [facility] Last Admin: 05/07/24 19:46 Dose: 2.5 mg Amiodarone HCl (Amiodarone Hcl 200 Mg Tab) 100 mg PO DAILY [facility] Last Admin: 05/07/24 08:10 Dose: 100 mg Budesonide (Budesonide 0.5 Mg/2 Ml Neb) 0.5 mg NEB BIDRESP [facility] Last Admin: 05/07/24 19:46 Dose: 0.5 mg Calcitriol (Calcitrol 0.25 Mcg Cap) 0.25 mcg PO DAILY [facility] Last Admin: 05/07/24 08:10 Dose: 0.25 mcg Citalopram Hydrobromide (Citalopram 10 Mg Tablet) 40 mg PO DAILY [facility] Last Admin: 05/07/24 08:09 Dose: 40 mg Divalproex Sodium (Divalproex Na 125 Mg Cap) 125 mg PO BID [facility] Last Admin: 05/07/24 20:28 Dose: 125 mg Furosemide (Furosemide 40 Mg/4 Ml Vial) 40 mg IV Q6H [facility] Last Admin: 05/07/24 20:28 Dose: 40 mg Norepinephrine Bitartrate 16 (mg/ Dextrose) 266 mls @ 11.949 mls/hr IV TITR [facility]; Protocol Last Titration: 05/07/24 12:30 Dose: 0.2 mcg/kg/min, 23.9 mls/hr Meropenem 1,000 mg/ Sodium (Chloride) 100 mls @ 200 mls/hr IV Q12HR [facility] Last Admin: 05/07/24 20:29 Dose: 100 mls Daptomycin 500 mg/ Sodium (Chloride) 100 mls @ 200 mls/hr IVPB Q48H [facility]; Protocol Ipratropium [place] (Ipratropium Brom 0.5mg/2.5ml) 0.5 mg NEB [id number] [facility] Last Admin: 05/07/24 19:46 Dose: 0.5 mg Lactobacillus Acidoph/Bulgaricus (Lactobacillus/Acidophilus Tab) 1 tab PO TID [facility] Last Admin: 05/07/24 20:28 Dose: 1 tab Levothyroxine Sodium (Levothyroxine Sod 0.075 Mg Tab) 0.15 mg PO DAILYAC [facility] Last Admin: 05/07/24 05:44 Dose: 0.15 mg Midodrine (Midodrine Hcl 5 Mg Tablet) 5 mg PO TID [facility] Last Admin: 05/07/24 20:28 Dose: 5 mg Pantoprazole Sodium (Pantoprazole 40 Mg Inj) 40 mg IVP DAILY [facility]; Protocol Last Admin: 05/07/24 08:10 Dose: 40 mg Risperidone (Risperidone 0.25 Mg Tablet) 0.25 mg PO BEDTIME [facility] Last Admin: 05/07/24 20:29 Dose: 0.25 mg Rivaroxaban (Rivaroxaban 10 Mg Tablet) 20 mg PO DAILY AT SUPPER [facility] Last Admin: 05/07/24 16:45 Dose: 20 mg Sodium Chloride (Sodium Chloride 0.9% 10ml Inj) 10 ml IV UD PRN PRN Reason: Diluant Microbiology Results 05/01/24 05:45 Blood - Blood Aerobic Blood Culture - Final Enterococcus Faecium Staphylococcus Haemolyticus 05/01/24 05:45 Blood - Blood Blood Culture Gram Stain - Final 05/01/24 05:45 Blood - Blood Anaerobic Blood Culture - Final Enterococcus Faecium 05/01/24 05:45 Blood - Blood Gram Stain - Final 05/01/24 06:05 Blood - Blood Aerobic Blood Culture - Final Enterococcus Faecium 05/01/24 06:05 Blood - Blood Blood Culture Gram Stain - Final 05/01/24 06:05 Blood - Blood Anaerobic Blood Culture - Final Enterococcus Faecium 05/01/24 06:05 Blood - Blood Gram Stain - Final 05/01/24 09:25 Catheterized Urine [place] Count - Final >100,000 CFU/ML. 05/01/24 09:25 Catheterized Urine - Final Escherichia Coli Esbl Enterococcus Faecalis Assessment/ Plan: Nephrology Progress Note No Chest Pain No Acute Events Overnight Limited IH/ ROS due to confusion Vital Signs, Medications, Blood Work, and Imaging reviewed in the chart General: Awake HEENT: Atraumatic Neck: Supple Respiratory: Clear to auscultation bilaterally Cardiovascular: Regular rate/rhythm, Edema Gastrointestinal: Soft and benign, Non-distended Musculoskeletal: No clubbing, No contractures Integumentary: No rashes, No cyanosis Blood work reviewed in the chart. Imagings Data: Exam Date: 05/01/24 Reason for Exam: ams Report Status: Signed EXAM DESCRIPTION: Chest Single View CLINICAL HISTORY: ams COMPARISON: None TECHNIQUE: Single AP view of the chest. FINDINGS: Left-sided cardiac conduction device. Lung volumes adequate. Cardiac silhouette is enlarged. No pneumothorax. Probable small bilateral effusions. Mild bilateral interstitial thickening. No focal consolidation. No acute bony finding. IMPRESSION: 1. Mild bilateral interstitial thickening, could represent mild pulmonary edema. 2. Probable small bilateral effusions. 3. Enlarged cardiac silhouette EXAM: CT brain without contrast HISTORY: Headache, drowsiness COMPARISON: 02/21/2024 TECHNIQUE: Multiple contiguous axial images were obtained and a CT of the brain without contrast. Sagittal and coronal reformats were performed. FINDINGS: No evidence of hydrocephalus, intracranial hemorrhage, or extra-axial fluid collection. Moderate brain atrophy with moderate periventricular and deep white matter chronic microvascular ischemic changes present. No evidence of midline shift or areas of brain edema. The calvarium is intact. The visualized paranasal sinuses and mastoid air cells are essentially clear. Significant carotid atherosclerosis seen. IMPRESSION: No evidence of acute intracranial abnormality. Conclusions/Impression: Stage II SPEEDY in the setting of Septic Shock/ Hypotension and may be complicated by CRS CKD III -No NSAIDs -Maintain renal perfusion Hypokalemia -Replete as ordered Hypophosphatemia -Replete as ordered Hypotension -Albumin IV prn -Wean Levophed as tolerated -Consider Midodrine -Consider an A-line for better BP readings Acute Respiratory Failure with Hypoxia Diastolic CHF, A/C Moderate Pulmonary HTN Peripheral Edema -Continue Lasix -Continue supplementation oxygen Hypoalbuminemia -Albumin prn Anemia in chronic illness -Monitor H&H -PRBC prn -Retacrit prn Septic Shock Acute GNR Cystitis -Continue Abx; monitor vanc level Metabolic Encephalopathy Senile Dementia -Continue supportive care Case reviewed with hospitalist team Hospitalist notes reviewed Patient Care 35min
[2024-05-08 06:19] LABS: Absolute Basophils 0.1 K/uL (0-0.5); Absolute Eosinophils 0.2 K/uL (0-0.5); Absolute Lymphocytes (CBC) 1.9 K/uL (0.7-4.9); Absolute Monocytes 1.3 K/uL (0.1-1.3); Absolute Neutrophil 6.6 K/uL (1.8-8.0); Basophils % 0.9 % (0-1.3); Hematocrit 29.5 % (36.0-45.0); Hemoglobin 9.6 g/dL (12.0-15.0); Lymphocytes % 18.6 % (15.3-44.8); MCH 31.1 pg (27.0-35.0); MCHC 32.5 g/dL (32.0-36.0); MCV 95.7 fL (80-100); MPV 7.9 fL (7.6-11.3); Monocytes % 13.1 % (3.3-12.3); Neutrophils % 65.4 % (41.7-73.7); Nucleated Red Blood Cells % 0.1 % (0-0); Platelets 147 thou/uL (152-406); RBC Red Blood Cell Count 3.09 M/uL (3.86-4.86); Red Cell Distribution Width 15.5 % (12.1-15.2)
[2024-05-08 06:40] LABS: AST/SGOT 13 U/L (15-37); Albumin 2.5 g/dL (3.4-5.0); Albumin/Globulin Ratio 0.8 (1.1-1.8); Alkaline Phosphatase 82 U/L (45-117); Anion Gap 6.5 mEq/L (5.0-15.0); BUN Blood Urea Nitrogen 33 mg/dL (7-18); Bicarbonate 37 mEq/L (21-32); Bilirubin Total 0.8 mg/dL (0.2-1.0); Globulin 3.2 g/dL (2.3-3.5); Glomerular Filtration Rate 29 ml/min (=/>90); Glucose Level 108 mg/dL (74-106); Magnesium 1.6 mg/dL (1.6-2.4); Phosphorus 2.9 mg/dL (2.5-4.9); Potassium 3.5 mEq/L (3.5-5.1); Protein, Total 5.7 g/dL (6.4-8.2); Sodium Level 140 mEq/L (136-145)
[2024-05-08 06:41] LABS: ALT/SGPT < 14 U/L (13-56)
--- NOTE | 2024-05-08 08:26 | RAD REPORT ---
EXAMINATION: ONE VIEW CHEST XR CLINICAL INDICATION: Wheezing/Tachypnea TECHNIQUE: Frontal chest projection is submitted. Examination is limited by patient positioning and t echnique. COMPARISON: 05/01/2024 FINDINGS: Moderate bilateral pulmonary opacities are present likely representing pulmonary edema. The heart is moderately enlarged in size. No displaced fractures identified. Pacemaker noted. IMPRESSION: Moderate CHF.
[2024-05-08] MEDS: MAGNESIUM SULFATE 1 gm IVPB 1 GM/100 ML BAG IV ONE (08:59)
[2024-05-08] MEDS: METHYLPREDNISOLONE 125 MG INJ IV ONE (08:59)
[2024-05-08] MEDS ORDERED: DAPTOmycin 700 MG in NA CHLORIDE 0.9% 100 ML IVPB SCH (09:00)
[2024-05-08] MEDS: POTASSIUM 25 MEQ EFFERV TAB PO ONE (09:00)
[2024-05-08] MEDS: KCL 20 MEQ/100 mL IVPB 20 MEQ/100 ML BAG IV SCH (09:00)
[2024-05-08] MEDS ORDERED: DAPTOmycin 500 MG in NA CHLORIDE 0.9% 100 ML IVPB SCH (09:00)
[2024-05-08 09:55] LABS: Differential Total Cells Count 100; Eosinophils 2 % (0-3); Lymphocytes 22 % (15-42); Monocytes 10 % (0-10); Nucleated Red Blood Cells 1 /100WBC; Segmented Neutrophils 66 % (40-80)
[2024-05-08 09:56] LABS: Blood Morphology Comment NOT SEEN (NOT SEEN); Platelet Estimate DECR
[2024-05-08] MEDS: DAPTOmycin 700 MG in NA CHLORIDE 0.9% 100 ML IVPB SCH (10:22)
[2024-05-08] MEDS: ALBUMIN HUMAN 25% 100 ML IV ONE (11:21)
[2024-05-08] MEDS: MIDODRINE HCL 5 MG TABLET PO SCH (14:11)
--- NOTE | 2024-05-08 19:17 | P.PN ---
Date of Service: 05/08/24 Vital Signs Temp Pulse Resp BP Pulse Ox 97.3 F 63 27 H 107/55 L 97 05/08/24 16:00 05/08/24 18:30 05/08/24 18:30 05/08/24 18:30 05/08/24 18:30 Medications Albuterol Sulfate (Albuterol 2.5 Mg/3 Ml Neb Brit) 2.5 mg NEB [id number] [facility] Last Admin: 05/08/24 13:49 Dose: 2.5 mg Amiodarone HCl (Amiodarone Hcl 200 Mg Tab) 100 mg PO DAILY [facility] Last Admin: 05/08/24 09:00 Dose: 100 mg Budesonide (Budesonide 0.5 Mg/2 Ml Neb) 0.5 mg NEB BIDRESP [facility] Last Admin: 05/08/24 08:18 Dose: 0.5 mg Calcitriol (Calcitrol 0.25 Mcg Cap) 0.25 mcg PO DAILY [facility] Last Admin: 05/08/24 09:01 Dose: 0.25 mcg Citalopram Hydrobromide (Citalopram 10 Mg Tablet) 40 mg PO DAILY [facility] Last Admin: 05/08/24 09:00 Dose: 40 mg Divalproex Sodium (Divalproex Na 125 Mg Cap) 125 mg PO BID [facility] Last Admin: 05/08/24 08:59 Dose: 125 mg Furosemide (Furosemide 40 Mg/4 Ml Vial) 40 mg IV Q6H [facility] Last Admin: 05/08/24 14:10 Dose: 40 mg Norepinephrine Bitartrate 16 (mg/ Dextrose) 266 mls @ 11.949 mls/hr IV TITR [facility]; Protocol Last Titration: 05/08/24 17:45 Dose: 0.1 mcg/kg/min, 11.9 mls/hr Meropenem 1,000 mg/ Sodium (Chloride) 100 mls @ 200 mls/hr IV Q12HR [facility] Last Admin: 05/08/24 08:59 Dose: 100 mls Daptomycin 700 mg/ Sodium (Chloride) 100 mls @ 200 mls/hr IVPB Q24H [facility]; Protocol Last Admin: 05/08/24 10:22 Dose: 100 mls Ipratropium [place] (Ipratropium Brom 0.5mg/2.5ml) 0.5 mg NEB [id number] [facility] Last Admin: 05/08/24 13:49 Dose: 0.5 mg L-Arginine/L-Glutamine/HMB (Walt Packet) 1 pkt PO BID [facility] Lactobacillus Acidoph/Bulgaricus (Lactobacillus/Acidophilus Tab) 1 tab PO TID [facility] Last Admin: 05/08/24 14:11 Dose: 1 tab Levothyroxine Sodium (Levothyroxine Sod 0.075 Mg Tab) 0.15 mg PO DAILYAC [facility] Last Admin: 05/08/24 05:51 Dose: 0.15 mg Midodrine (Midodrine Hcl 5 Mg Tablet) 10 mg PO TID [facility] Last Admin: 05/08/24 14:11 Dose: 10 mg Pantoprazole Sodium (Pantoprazole 40 Mg Inj) 40 mg IVP DAILY [facility]; Protocol Last Admin: 05/08/24 08:59 Dose: 40 mg Protein (Ensure Max Protein 330 Ml Liquid) 330 ml PO BID [facility] Risperidone (Risperidone 0.25 Mg Tablet) 0.25 mg PO BEDTIME [facility] Last Admin: 05/07/24 20:29 Dose: 0.25 mg Rivaroxaban (Rivaroxaban 10 Mg Tablet) 20 mg PO DAILY AT SUPPER [facility] Last Admin: 05/08/24 17:01 Dose: 20 mg Sodium Chloride (Sodium Chloride 0.9% 10ml Inj) 10 ml IV UD PRN PRN Reason: Diluant Microbiology Results 05/01/24 05:45 Blood - Blood Aerobic Blood Culture - Final Enterococcus Faecium Staphylococcus Haemolyticus 05/01/24 05:45 Blood - Blood Blood Culture Gram Stain - Final 05/01/24 05:45 Blood - Blood Anaerobic Blood Culture - Final Enterococcus Faecium 05/01/24 05:45 Blood - Blood Gram Stain - Final 05/01/24 06:05 Blood - Blood Aerobic Blood Culture - Final Enterococcus Faecium 05/01/24 06:05 Blood - Blood Blood Culture Gram Stain - Final 05/01/24 06:05 Blood - Blood Anaerobic Blood Culture - Final Enterococcus Faecium 05/01/24 06:05 Blood - Blood Gram Stain - Final 05/01/24 09:25 Catheterized Urine [place] Count - Final >100,000 CFU/ML. 05/01/24 09:25 Catheterized Urine - Final Escherichia Coli Esbl Enterococcus Faecalis Assessment/ Plan: Nephrology Progress Note No Chest Pain No Acute Events Overnight Limited IH/ ROS due to confusion Vital Signs, Medications, Blood Work, and Imaging reviewed in the chart General: Awake HEENT: Atraumatic Neck: Supple Respiratory: Exp wheeze Cardiovascular: Regular rate/rhythm, Edema Gastrointestinal: Soft and benign, Non-distended Musculoskeletal: No clubbing, No contractures Integumentary: No rashes, No cyanosis [place]reaga light Blood work reviewed in the chart. Imagings Data: Exam Date: 05/01/24 Reason for Exam: ams Report Status: Signed EXAM DESCRIPTION: Chest Single View CLINICAL HISTORY: ams COMPARISON: None TECHNIQUE: Single AP view of the chest. FINDINGS: Left-sided cardiac conduction device. Lung volumes adequate. Cardiac silhouette is enlarged. No pneumothorax. Probable small bilateral effusions. Mild bilateral interstitial thickening. No focal consolidation. No acute bony finding. IMPRESSION: 1. Mild bilateral interstitial thickening, could represent mild pulmonary edema. 2. Probable small bilateral effusions. 3. Enlarged cardiac silhouette EXAM: CT brain without contrast HISTORY: Headache, drowsiness COMPARISON: 02/21/2024 TECHNIQUE: Multiple contiguous axial images were obtained and a CT of the brain without contrast. Sagittal and coronal reformats were performed. FINDINGS: No evidence of hydrocephalus, intracranial hemorrhage, or extra-axial fluid collection. Moderate brain atrophy with moderate periventricular and deep white matter chronic microvascular ischemic changes present. No evidence of midline shift or areas of brain edema. The calvarium is intact. The visualized paranasal sinuses and mastoid air cells are essentially clear. Significant carotid atherosclerosis seen. IMPRESSION: No evidence of acute intracranial abnormality. Conclusions/Impression: Stage II SPEEDY in the setting of Septic Shock/ Hypotension and may be complicated by CRS CKD III -No NSAIDs -Maintain renal perfusion Hypokalemia -Replete as ordered Hypophosphatemia -Replete prn Hypotension -Albumin IV prn -Wean Levophed as tolerated -Consider Midodrine -Consider an A-line for better BP readings Acute Respiratory Failure with Hypoxia Diastolic CHF, A/C Moderate Pulmonary HTN Peripheral Edema -Continue Lasix -Continue supplementation oxygen Hypoalbuminemia -Albumin prn Anemia in chronic illness -Monitor H&H -PRBC prn -Retacrit prn Septic Shock Acute GNR Cystitis -Continue Abx; monitor vanc level Metabolic Encephalopathy Senile Dementia -Continue supportive care Case reviewed with hospitalist team Hospitalist notes reviewed Patient Care 35min
[2024-05-08] MEDS: JUVEN PACKET PO SCH (20:22)
[2024-05-08] MEDS: ENSURE MAX PROTEIN 330 ML LIQUID PO SCH (21:00)
[2024-05-09 06:40] LABS: Absolute Lymphocytes (CBC) 1.8 K/uL (0.7-4.9); Absolute Monocytes 1.5 K/uL (0.1-1.3); Absolute Neutrophil 7.3 K/uL (1.8-8.0); Basophils % 0.1 % (0-1.3); Hematocrit 31.5 % (36.0-45.0); Hemoglobin 10.3 g/dL (12.0-15.0); Lymphocytes % 16.9 % (15.3-44.8); MCH 31.4 pg (27.0-35.0); MCHC 32.7 g/dL (32.0-36.0); MCV 96.1 fL (80-100); MPV 7.7 fL (7.6-11.3); Monocytes % 13.8 % (3.3-12.3); Neutrophils % 69.2 % (41.7-73.7); Nucleated Red Blood Cells % 0.1 % (0-0); Platelets 186 thou/uL (152-406); RBC Red Blood Cell Count 3.28 M/uL (3.86-4.86); Red Cell Distribution Width 15.9 % (12.1-15.2)
[2024-05-09 07:08] LABS: Albumin 3.1 g/dL (3.4-5.0); Anion Gap 5.5 mEq/L (5.0-15.0); Bilirubin Total 0.6 mg/dL (0.2-1.0); Globulin 3.1 g/dL (2.3-3.5); Magnesium 1.8 mg/dL (1.6-2.4); Phosphorus 3.3 mg/dL (2.5-4.9); Potassium 3.5 mEq/L (3.5-5.1); Protein, Total 6.2 g/dL (6.4-8.2)
[2024-05-09] MEDS ORDERED: KCL 20 MEQ/100 mL IVPB 20 MEQ/100 ML BAG IV SCH (08:00)
[2024-05-09] MEDS: POTASSIUM CL 40 MEQ in NA CHLORIDE 0.9% 500 ML IV SCH (09:14)
[2024-05-09] MEDS: MAGNESIUM SULFATE 1 gm IVPB 1 GM/100 ML BAG IV ONE (09:14)
--- NOTE | 2024-05-09 20:50 | P.PN ---
Date of Service: 05/09/24 Vital Signs Temp Pulse Resp BP Pulse Ox 96.9 F 69 23 H 105/92 H 96 05/09/24 20:00 05/09/24 20:30 05/09/24 20:30 05/09/24 20:30 05/09/24 20:30 Medications Albuterol Sulfate (Albuterol 2.5 Mg/3 Ml Neb Brit) 2.5 mg NEB [id number] [facility] Last Admin: 05/09/24 19:43 Dose: 2.5 mg Amiodarone HCl (Amiodarone Hcl 200 Mg Tab) 100 mg PO DAILY [facility] Last Admin: 05/09/24 09:17 Dose: 100 mg Budesonide (Budesonide 0.5 Mg/2 Ml Neb) 0.5 mg NEB BIDRESP [facility] Last Admin: 05/09/24 19:43 Dose: 0.5 mg Calcitriol (Calcitrol 0.25 Mcg Cap) 0.25 mcg PO DAILY [facility] Last Admin: 05/09/24 09:15 Dose: 0.25 mcg Citalopram Hydrobromide (Citalopram 10 Mg Tablet) 40 mg PO DAILY [facility] Last Admin: 05/09/24 09:15 Dose: 40 mg Divalproex Sodium (Divalproex Na 125 Mg Cap) 125 mg PO BID [facility] Last Admin: 05/09/24 09:19 Dose: 125 mg Furosemide (Furosemide 40 Mg/4 Ml Vial) 40 mg IV Q6H [facility] Last Admin: 05/09/24 12:56 Dose: 40 mg Norepinephrine Bitartrate 16 (mg/ Dextrose) 266 mls @ 11.949 mls/hr IV TITR [facility]; Protocol Last Admin: 05/09/24 16:12 Dose: 0.2 mcg/kg/min, 23.9 mls/hr Meropenem 1,000 mg/ Sodium (Chloride) 100 mls @ 200 mls/hr IV Q12HR [facility] Last Admin: 05/09/24 09:16 Dose: 100 mls Daptomycin 700 mg/ Sodium (Chloride) 100 mls @ 200 mls/hr IVPB Q24H [facility]; P rotocol Last Admin: 05/09/24 09:15 Dose: 100 mls Ipratropium [place] (Ipratropium Brom 0.5mg/2.5ml) 0.5 mg NEB [id number] [facility] Last Admin: 05/09/24 19:43 Dose: 0.5 mg L-Arginine/L-Glutamine/HMB (Walt Packet) 1 pkt PO BID [facility] Last Admin: 05/09/24 09:00 Dose: 1 pkt Lactobacillus Acidoph/Bulgaricus (Lactobacillus/Acidophilus Tab) 1 tab PO TID [facility] Last Admin: 05/09/24 12:56 Dose: 1 tab Levothyroxine Sodium (Levothyroxine Sod 0.075 Mg Tab) 0.15 mg PO DAILYAC [facility] Last Admin: 05/09/24 05:32 Dose: 0.15 mg Midodrine (Midodrine Hcl 5 Mg Tablet) 10 mg PO TID [facility] Last Admin: 05/09/24 12:56 Dose: 10 mg Pantoprazole Sodium (Pantoprazole 40 Mg Inj) 40 mg IVP DAILY [facility]; Protocol Last Admin: 05/09/24 09:15 Dose: 40 mg Protein (Ensure Max Protein 330 Ml Liquid) 330 ml PO BID [facility] Last Admin: 05/09/24 09:00 Dose: 330 ml Risperidone (Risperidone 0.25 Mg Tablet) 0.25 mg PO BEDTIME [facility] Last Admin: 05/08/24 20:24 Dose: Not Given Rivaroxaban (Rivaroxaban 10 Mg Tablet) 20 mg PO DAILY AT SUPPER [facility] Last Admin: 05/09/24 16:12 Dose: 20 mg Sodium Chloride (Sodium Chloride 0.9% 10ml Inj) 10 ml IV UD PRN PRN Reason: Diluant Microbiology Results 05/01/24 05:45 Blood - Blood Aerobic Blood Culture - Final Enterococcus Faecium Staphylococcus Haemolyticus 05/01/24 05:45 Blood - Blood Blood Culture Gram Stain - Final 05/01/24 05:45 Blood - Blood Anaerobic Blood Culture - Final Enterococcus Faecium 05/01/24 05:45 Blood - Blood Gram Stain - Final 05/01/24 06:05 Blood - Blood Aerobic Blood Culture - Final Enterococcus Faecium 05/01/24 06:05 Blood - Blood Blood Culture Gram Stain - Final 05/01/24 06:05 Blood - Blood Anaerobic Blood Culture - Final Enterococcus Faecium 05/01/24 06:05 Blood - Blood Gram Stain - Final 05/01/24 09:25 Catheterized Urine [place] Count - Final >100,000 CFU/ML. 05/01/24 09:25 Catheterized Urine - Final Escherichia Coli Esbl Enterococcus Faecalis Assessment/ Plan: Nephrology Progress Note No Chest Pain No Acute Events Overnight Limited IH/ ROS due to confusion Vital Signs, Medications, Blood Work, and Imaging reviewed in the chart General: Obese. Awake HEENT: Atraumatic Neck: Supple Respiratory: Exp wheeze Cardiovascular: Regular rate/rhythm, Edema Gastrointestinal: Soft and benign, Non-distended Musculoskeletal: No clubbing, No contractures Integumentary: No rashes, No cyanosis [place]re[place] med Blood work reviewed in the chart. Imagings Data: Exam Date: 05/01/24 Reason for Exam: ams Report Status: Signed EXAM DESCRIPTION: Chest Single View CLINICAL HISTORY: ams COMPARISON: None TECHNIQUE: Single AP view of the chest. FINDINGS: Left-sided cardiac conduction device. Lung volumes adequate. Cardiac silhouette is enlarged. No pneumothorax. Probable small bilateral effusions. Mild bilateral interstitial thickening. No focal consolidation. No acute bony finding. IMPRESSION: 1. Mild bilateral interstitial thickening, could represent mild pulmonary edema. 2. Probable small bilateral effusions. 3. Enlarged cardiac silhouette EXAM: CT brain without contrast HISTORY: Headache, drowsiness COMPARISON: 02/21/2024 TECHNIQUE: Multiple contiguous axial images were obtained and a CT of the brain without contrast. Sagittal and coronal reformats were performed. FINDINGS: No evidence of hydrocephalus, intracranial hemorrhage, or extra-axial fluid collection. Moderate brain atrophy with moderate periventricular and deep white matter chronic microvascular ischemic changes present. No evidence of midline shift or areas of brain edema. The calvarium is intact. The visualized paranasal sinuses and mastoid air cells are essentially clear. Significant carotid atherosclerosis seen. IMPRESSION: No evidence of acute intracranial abnormality. Conclusions/Impression: Stage II SPEEDY in the setting of Septic Shock/ Hypotension and may be complicated by CRS CKD III -No NSAIDs -Maintain renal perfusion Hypokalemia -Replete as ordered Hypophosphatemia -Replete prn Hypotension -Albumin IV prn -Levophed prn -Continue Midodrine -Consider an A-line for better BP readings Acute Respiratory Failure with Hypoxia Diastolic CHF, A/C Moderate Pulmonary HTN Peripheral Edema -Continue Lasix -Continue supplementation oxygen Hypoalbuminemia -Albumin prn Anemia in chronic illness -Monitor H&H -PRBC prn -Retacrit prn Septic Shock Acute GNR Cystitis -Continue Abx; monitor vanc level Metabolic Encephalopathy Senile Dementia -Continue supportive care Case reviewed with hospitalist team Hospitalist notes reviewed Patient Care 35min
[2024-05-10 05:21] LABS: Absolute Basophils 0.1 K/uL (0-0.5); Absolute Eosinophils 0.2 K/uL (0-0.5); Absolute Lymphocytes (CBC) 2.1 K/uL (0.7-4.9); Absolute Monocytes 1.1 K/uL (0.1-1.3); Absolute Neutrophil 6.8 K/uL (1.8-8.0); Basophils % 0.5 % (0-1.3); Eosinophils % 2.3 % (0-4.4); Hematocrit 27.7 % (36.0-45.0); Hemoglobin 9.1 g/dL (12.0-15.0); Lymphocytes % 20.5 % (15.3-44.8); MCH 31.5 pg (27.0-35.0); MCHC 32.8 g/dL (32.0-36.0); MCV 96.2 fL (80-100); MPV 7.2 fL (7.6-11.3); Monocytes % 10.4 % (3.3-12.3); Neutrophils % 66.3 % (41.7-73.7); Nucleated Red Blood Cells % 0.1 % (0-0); Platelets 236 thou/uL (152-406); RBC Red Blood Cell Count 2.88 M/uL (3.86-4.86); Red Cell Distribution Width 16.2 % (12.1-15.2)
[2024-05-10 05:46] LABS: AST/SGOT 14 U/L (15-37); Albumin 2.8 g/dL (3.4-5.0); Albumin/Globulin Ratio 0.9 (1.1-1.8); Alkaline Phosphatase 80 U/L (45-117); Anion Gap 4.7 mEq/L (5.0-15.0); BUN Blood Urea Nitrogen 34 mg/dL (7-18); Bicarbonate 39 mEq/L (21-32); Bilirubin Total 0.6 mg/dL (0.2-1.0); Glomerular Filtration Rate 33 ml/min (=/>90); Glucose Level 122 mg/dL (74-106); Magnesium 1.8 mg/dL (1.6-2.4); Phosphorus 2.9 mg/dL (2.5-4.9); Potassium 3.7 mEq/L (3.5-5.1); Protein, Total 5.8 g/dL (6.4-8.2); Sodium Level 140 mEq/L (136-145)
[2024-05-10 05:52] LABS: ALT/SGPT < 14 U/L (13-56)
[2024-05-10] MEDS: MAGNESIUM SULFATE 1 gm IVPB 1 GM/100 ML BAG IV ONE (06:26)
--- NOTE | 2024-05-10 07:34 | RAD REPORT ---
Procedure: Chest Single View History: Chest pain Comparison: May 08, 2024 Mild bilateral pulmonary opacities without significant change. Small lateral mid right lung opacity unchanged Cardiomegaly. Pacemaker leads in place. IMPRESSION: Mild bilateral pulmonary opacities without significant change probably Small lateral mid right lung opacity unchanged could represent focal pulmonary edema or post pneumoni a
[2024-05-10] MEDS: KCL 20 MEQ/100 mL IVPB 20 MEQ/100 ML BAG IV ONE (08:16)
[2024-05-10 13:35] LABS: Magnesium 1.9 mg/dL (1.6-2.4); Potassium 3.9 mEq/L (3.5-5.1)
[2024-05-10] MEDS: HYDROCORTISONE SUC 100 MG INJ IV SCH (18:31)
[2024-05-10] MEDS: WATER FOR INJ,STERILE 10 ML IV SCH (18:32)
--- NOTE | 2024-05-10 22:57 | P.PN ---
Date of Service: 05/10/24 Vital Signs Temp Pulse Resp BP Pulse Ox 97.9 F 65 24 H 109/54 L 94 05/10/24 20:30 05/10/24 22:30 05/10/24 22:30 05/10/24 22:30 05/10/24 22:30 Medications Albuterol Sulfate (Albuterol 2.5 Mg/3 Ml Neb Brit) 2.5 mg NEB [id number] [facility] Last Admin: 05/10/24 20:26 Dose: 2.5 mg Amiodarone HCl (Amiodarone Hcl 200 Mg Tab) 100 mg PO DAILY JORGE Last Admin: 05/10/24 08:15 Dose: 100 mg Budesonide (Budesonide 0.5 Mg/2 Ml Neb) 0.5 mg NEB BIDRESP [facility] Last Admin: 05/10/24 20:25 Dose: 0.5 mg Calcitriol (Calcitrol 0.25 Mcg Cap) 0.25 mcg PO DAILY JORGE Last Admin: 05/10/24 08:15 Dose: 0.25 mcg Citalopram Hydrobromide (Citalopram 10 Mg Tablet) 40 mg PO DAILY [facility] Last Admin: 05/10/24 08:15 Dose: 40 mg Divalproex Sodium (Divalproex Na 125 Mg Cap) 125 mg PO BID [facility] Last Admin: 05/10/24 20:29 Dose: 125 mg Furosemide (Furosemide 40 Mg/4 Ml Vial) 40 mg IV Q6H [facility] Last Admin: 05/10/24 08:16 Dose: 40 mg Hydrocortisone Sodium Succinate (Hydrocortisone Suc 100 Mg Inj) 50 mg IV Q8HR [facility] Last Admin: 05/10/24 18:31 Dose: 50 mg Norepinephrine Bitartrate 16 (mg/ Dextrose) 266 mls @ 11.949 mls/hr IV TITR [facility]; Protocol Last Titration: 05/10/24 20:50 Dose: 0.15 mcg/kg/min, 17.9 mls/hr Daptomycin 700 mg/ Sodium (Chloride) 100 mls @ 200 mls/hr IVPB Q24H [facility]; Protocol Last Admin: 05/10/24 10:16 Dose: 100 mls Ipratropium Steinauer (Ipratropium Brom 0.5mg/2.5ml) 0.5 mg NEB [id number] [facility] Last Admin: 10/03/24 20:25 Dose: 0.5 mg L-Arginine/L-Glutamine/HMB (Walt Packet) 1 pkt PO BID [facility] Last Admin: 05/10/24 20:30 Dose: 1 pkt Lactobacillus Acidoph/Bulgaricus (Lactobacillus/Acidophilus Tab) 1 tab PO TID [facility] Last Admin: 05/10/24 20:29 Dose: 1 tab Levothyroxine Sodium (Levothyroxine Sod 0.075 Mg Tab) 0.15 mg PO DAILYAC [facility] Last Admin: 05/10/24 06:24 Dose: 0.15 mg Midodrine (Midodrine Hcl 5 Mg Tablet) 10 mg PO TID [facility] Last Admin: 05/10/24 20:29 Dose: 10 mg Pantoprazole Sodium (Pantoprazole 40 Mg Inj) 40 mg IVP DAILY [facility]; Protocol Last Admin: 05/10/24 08:16 Dose: 40 mg Protein (Ensure Max Protein 330 Ml Liquid) 330 ml PO BID [facility] Last Admin: 05/10/24 20:31 Dose: 330 ml Risperidone (Risperidone 0.25 Mg Tablet) 0.25 mg PO BEDTIME [facility] Last Admin: 05/10/24 20:29 Dose: 0.25 mg Rivaroxaban (Rivaroxaban 10 Mg Tablet) 20 mg PO DAILY AT SUPPER [facility] Last Admin: 05/10/24 17:12 Dose: 20 mg Sodium Chloride (Sodium Chloride 0.9% 10ml Inj) 10 ml IV UD PRN PRN Reason: Diluant Sterile Water (Water For Inj,Sterile 10 Ml) 2 ml IV Q8HR [facility] Last Admin: 05/10/24 18:32 Dose: 2 ml Microbiology Results 05/01/24 05:45 Blood - Blood Aerobic Blood Culture - Final Enterococcus Faecium Staphylococcus Haemolyticus 05/01/24 05:45 Blood - Blood Blood Culture Gram Stain - Final 05/01/24 05:45 Blood - Blood Anaerobic Blood Culture - Final Enterococcus Faecium 05/01/24 05:45 Blood - Blood Gram Stain - Final 05/01/24 06:05 Blood - Blood Aerobic Blood Culture - Final Enterococcus Faecium 05/01/24 06:05 Blood - Blood Blood Culture Gram Stain - Final 05/01/24 06:05 Blood - Blood Anaerobic Blood Culture - Final Enterococcus Faecium 05/01/24 06:05 Blood - Blood Gram Stain - Final 05/01/24 09:25 Catheterized Urine [place] Count - Final >100,000 CFU/ML. 05/01/24 09:25 Catheterized Urine - Final Escherichia Coli Esbl Enterococcus Faecalis Assessment/ Plan: Nephrology Progress Note No Chest Pain No Acute Events Overnight Limited IH/ ROS due to confusion Vital Signs, Medications, Blood Work, and Imaging reviewed in the chart General: Obese. Somnolent HEENT: Atraumatic Neck: Supple Respiratory: Exp wheeze Cardiovascular: Regular rate/rhythm, Edema Gastrointestinal: Soft and benign, Non-distended Musculoskeletal: No clubbing, No contractures Integumentary: No rashes, No cyanosis Arre[facility] med Blood work reviewed in the chart. Imagings Data: Exam Date: 05/01/24 Reason for Exam: ams Report Status: Signed EXAM DESCRIPTION: Chest Single View CLINICAL HISTORY: ams COMPARISON: None TECHNIQUE: Single AP view of the chest. FINDINGS: Left-sided cardiac conduction device. Lung volumes adequate. Cardiac silhouette is enlarged. No pneumothorax. Probable small bilateral effusions. Mild bilateral interstitial thickening. No focal consolidation. No acute bony finding. IMPRESSION: 1. Mild bilateral interstitial thickening, could represent mild pulmonary edema. 2. Probable small bilateral effusions. 3. Enlarged cardiac silhouette EXAM: CT brain without contrast HISTORY: Headache, drowsiness COMPARISON: 02/21/2024 TECHNIQUE: Multiple contiguous axial images were obtained and a CT of the brain without contrast. Sagittal and coronal reformats were performed. FINDINGS: No evidence of hydrocephalus, intracranial hemorrhage, or extra-axial fluid collection. Moderate brain atrophy with moderate periventricular and deep white matter chronic microvascular ischemic changes present. No evidence of midline shift or areas of brain edema. The calvarium is intact. The visualized paranasal sinuses and mastoid air cells are essentially clear. Significant carotid atherosclerosis seen. IMPRESSION: No evidence of acute intracranial abnormality. Conclusions/Impression: Stage II SPEEDY in the setting of Septic Shock/ Hypotension and may be complicated by CRS CKD III -No NSAIDs -Maintain renal perfusion Hypokalemia -Replete as ordered Hypotension -Albumin IV prn -Wean levophed as tolerated -Continue Midodrine -Consider an A-line for better BP readings Acute Respiratory Failure with Hypoxia Diastolic CHF, A/C Moderate Pulmonary HTN Peripheral Edema -Continue Lasix -Continue supplementation oxygen Hypoalbuminemia -Albumin prn Anemia in chronic illness -Monitor H&H -PRBC prn -Retacrit prn Septic Shock Acute GNR Cystitis -Continue Abx Metabolic Encephalopathy Senile Dementia -Continue supportive care Case reviewed with hospitalist team Hospitalist notes reviewed; prognosis poor Patient Care 35min
[2024-05-11] MEDS ORDERED: WATER FOR INJ,STERILE 10 ML IV SCH (01:00)
[2024-05-11 05:58] LABS: Absolute Lymphocytes (CBC) 0.6 K/uL (0.7-4.9); Absolute Monocytes 0.3 K/uL (0.1-1.3); Absolute Neutrophil 6.4 K/uL (1.8-8.0); Basophils % 0.1 % (0-1.3); Hematocrit 26.5 % (36.0-45.0); Lymphocytes % 8.2 % (15.3-44.8); MCH 32.4 pg (27.0-35.0); MCHC 34.1 g/dL (32.0-36.0); MCV 95.2 fL (80-100); Monocytes % 3.6 % (3.3-12.3); Neutrophils % 88.1 % (41.7-73.7); Platelets 265 thou/uL (152-406); RBC Red Blood Cell Count 2.78 M/uL (3.86-4.86); Red Cell Distribution Width 16.2 % (12.1-15.2)
[2024-05-11 06:07] LABS: Anion Gap 6.6 mEq/L (5.0-15.0); Magnesium 1.8 mg/dL (1.6-2.4); Phosphorus 3.2 mg/dL (2.5-4.9); Potassium 3.6 mEq/L (3.5-5.1)
[2024-05-11] MEDS: MAGNESIUM SULFATE 1 gm IVPB 1 GM/100 ML BAG IV ONE (06:28)
[2024-05-11] MEDS: POTASSIUM 25 MEQ EFFERV TAB PO ONE (06:28)
[2024-05-11 07:01] LABS: Blood Morphology Comment NOTED (NOT SEEN); Platelet Estimate ADEQ; Platelets Clumped FEW; Stomatocytes 1+; White Blood Cell Scan OK (OK)
--- NOTE | 2024-05-11 11:55 | P.PN ---
Nephrology Progress Note Pt remains in the ICU, poor historian with her dementia, appears anxious, remains on pressor support, resp status stable but last CXR findings noted and remains on LFNC Vital Signs, Medications, Blood Work, and Imaging reviewed in the chart General: Awake, anxious HEENT: Atraumatic, LFNC Neck: Supple Respiratory: b/l air entry, no wheezing Cardiovascular: Non tachy, 2+ distal edema b/l Gastrointestinal: Soft, obese, NT, allred present Musculoskeletal: Shins non tender Integumentary: No rashes Neuro: Awake, mostly non verbal, no myoclonus Blood work reviewed in the chart. Conclusions/Impression: Stage II SPEEDY POA multifactorial in the setting of likely underlying CKD NOS -Cr level lower from peak levels, cont to monitor closely with Daptomycin Abx use. Maintained allred, monitor UOP closely. Hypotension in the setting of sepsis with continued pressor requirement for unclear reasons Acute Ecoli ESBL Cystitis POA -Has been on Abx per IM -Remains on levophed Acute Respiratory Failure with Hypoxia Diastolic CHF, chronic Peripheral Edema -Clinically stable -IV Albumin re-ordered, lasix had been on hold, if MAPs remain stable, and pressor weaned/off, will cont lower dose maintenance diuretics Anemia in the setting of illnesses -Monitor H&H closely Stepan Bourgeois MD, JADE
[2024-05-11] MEDS: ALBUMIN HUMAN 25% 100 ML IV ONE (12:23)
[2024-05-11] MEDS ORDERED: HOME MED 1 EA UNK (Ipratropium/Albuterol Sulfate [Iprat-Albut 0.5-3(2.5) Mg/3 Ml] 3 ML Amp IH PRN (14:58)
[2024-05-11] MEDS: AMIODARONE HCL 200 MG TAB PO SCH (14:59)
[2024-05-11 16:45] LABS: C.diff Antigen/Toxin Ag neg : Tox neg (NEG : NEG); CDIFF INTERNAL NEG CONTROL White Background (WHITE BKGD); STOOL CONSISTENCY Liquid/Semi-Solid
[2024-05-11] MEDS: HOME MED 1 EA UNK (Ipratropium/Albuterol Sulfate [Combivent Respimat 20-100 Mcg] 4 GM Mist IH SCH (16:48)
[2024-05-11] MEDS: FUROSEMIDE 20 MG/ 2ML VIAL IV SCH (16:49)
[2024-05-11] MEDS ORDERED: HYDROCORTISONE SUC 100 MG INJ IV SCH (18:16)
[2024-05-11] MEDS ORDERED: IPRATROPIUM BROM 0.5MG/2.5ML IH SCH (20:00)
[2024-05-11] MEDS ORDERED: ALBUTEROL 2.5 MG/3 ML NEB SOL NEB SCH (20:00)
[2024-05-11] MEDS ORDERED: BUDESONIDE 0.5 MG/2 ML NEB IH SCH (21:00)
[2024-05-11] MEDS ORDERED: RISPERIDONE 0.25 MG TABLET PO SCH (21:00)
[2024-05-11] MEDS: IPRATROPIUM IH SCH (21:00)
[2024-05-11] MEDS ORDERED: HOME MED 1 EA UNK (Citalopram Hydrobromide [Celexa] 40 MG Tablet) PO SCH (21:00)
[2024-05-11] MEDS: ALBUTEROL IH SCH (21:00)
[2024-05-11] MEDS ORDERED: DIVALPROEX NA 125 MG CAP PO SCH (21:00)
[2024-05-11] MEDS: FORMOTEROL FUMARATE 20 MCG/2 ML IH SCH (21:00)
[2024-05-11] MEDS: MONTELUKAST 10 MG TAB PO SCH (21:04)
[2024-05-11] MEDS: MELATONIN 3 MG TABLET PO SCH (21:04)
[2024-05-11] MEDS: MEMANTINE HCL 10 MG TABLET PO SCH (21:06)
[2024-05-11] MEDS: DONEPEZIL HCL 5 MG TAB PO SCH (21:06)
[2024-05-12] MEDS: NOREPINEPHRINE BITARTRATE/D5W 4 MG/250 ML KIT IV ONE (02:04)
[2024-05-12 05:34] LABS: Absolute Lymphocytes (CBC) 0.5 K/uL (0.7-4.9); Absolute Monocytes 0.4 K/uL (0.1-1.3); Absolute Neutrophil 5.8 K/uL (1.8-8.0); Basophils % 0.3 % (0-1.3); Hematocrit 24.6 % (36.0-45.0); Hemoglobin 8.2 g/dL (12.0-15.0); Lymphocytes % 6.8 % (15.3-44.8); MCH 31.7 pg (27.0-35.0); MCHC 33.3 g/dL (32.0-36.0); MCV 95.1 fL (80-100); Neutrophils % 86.9 % (41.7-73.7); Nucleated Red Blood Cells % 0.2 % (0-0); Platelets 247 thou/uL (152-406); RBC Red Blood Cell Count 2.59 M/uL (3.86-4.86); Red Cell Distribution Width 16.7 % (12.1-15.2)
[2024-05-12 05:47] LABS: AST/SGOT 11 U/L (15-37); Albumin 2.7 g/dL (3.4-5.0); Albumin/Globulin Ratio 0.9 (1.1-1.8); Alkaline Phosphatase 60 U/L (45-117); Anion Gap 6.3 mEq/L (5.0-15.0); BUN Blood Urea Nitrogen 38 mg/dL (7-18); Bicarbonate 36 mEq/L (21-32); Bilirubin Total 0.6 mg/dL (0.2-1.0); Globulin 2.9 g/dL (2.3-3.5); Glomerular Filtration Rate 40 ml/min (=/>90); Glucose Level 136 mg/dL (74-106); Magnesium 1.9 mg/dL (1.6-2.4); Phosphorus 3.6 mg/dL (2.5-4.9); Potassium 3.3 mEq/L (3.5-5.1); Protein, Total 5.6 g/dL (6.4-8.2); Sodium Level 139 mEq/L (136-145)
[2024-05-12 05:58] LABS: ALT/SGPT < 14 U/L (13-56)
[2024-05-12] MEDS: Mirabegron [Myrbetriq] 25 MG Tab.Er.24h PO SCH (08:17)
[2024-05-12] MEDS: CARBOXYMETHYLCELLULOSE SODIUM 0.5% 15 ML OPTH SCH (08:21)
[2024-05-12] MEDS: SERTRALINE HCL 50 MG TAB PO SCH (08:22)
[2024-05-12] MEDS: FAMOTIDINE 20 MG TAB PO SCH (08:22)
[2024-05-12] MEDS: CALCIUM CARBONATE 500 MG TAB PO SCH (08:24)
[2024-05-12] MEDS: VITAMIN D 1000 UNIT TAB PO SCH (08:24)
[2024-05-12] MEDS ORDERED: HOME MED 1 EA UNK (Lactobacillus Acidophilus [Acidophilus Lactobacilli] Capsule) PO SCH (09:00)
[2024-05-12] MEDS ORDERED: RIVAROXABAN 20 MG TABLET PO SCH (09:00)
[2024-05-12] MEDS ORDERED: HOME MED 1 EA UNK (Levothyroxine Sodium [Levothyroxine Sodium] 150 MCG Tablet) PO SCH (09:00)
[2024-05-12] MEDS: NOREPINEPHRINE 4 MG in D5W 250 ML IV SCH (12:59)
[2024-05-12] MEDS: FUROSEMIDE 40 MG TABLET PO SCH (17:01)
[2024-05-13 00:13] VITALS: BMI 47.1
[2024-05-13 04:18] VITALS: O2SAT 98
[2024-05-13] MEDS: FENTANYL CITR 100 MCG/2 ML IV ONE (08:32)
[2024-05-13 09:00] VITALS: TEMP 96.7
[2024-05-13 09:54] VITALS: BP 112/64
[2024-05-13] MEDS: MORPHINE 2 MG/ML SYR IV ONE (10:12)
[2024-05-13] MEDS: NOREPINEPHRINE BITARTRATE/D5W 4 MG/250 ML KIT IV SCH (10:13)
== END 2024-05-13 10:16 | disposition hospice, inpatient (51) | DRG 871 ==
LOC: ER 05:17 → ERHOLD 09:46 → 3RD-ICU 10:21
PROVIDERS: ADMIT Hospitalist; ATTEND Hospitalist
PROC: 30233N1 Transfusion of Nonautologous Red Blood Cells into Peripheral Vein, Percutaneous Approach (ICD-10-PCS; 2024-05-03)
PROC: 02HV33Z Insertion of Infusion Device into Superior Vena Cava, Percutaneous Approach (ICD-10-PCS; principal; 2024-05-13)
DX: A41.51 Sepsis due to Escherichia coli [E. coli] (principal); G93.41 Metabolic encephalopathy; I50.33 Acute on chronic diastolic (congestive) heart failure; J96.01 Acute respiratory failure with hypoxia; R65.21 Severe sepsis with septic shock; I13.0 Hypertensive heart and chronic kidney disease with heart failure and stage 1 through stage 4 chronic kidney disease, or unspecified chronic kidney disease; R47.01 Aphasia; Z68.42 Body mass index [BMI] 45.0-49.9, adult; N17.9 Acute kidney failure, unspecified; N30.00 Acute cystitis without hematuria; Z16.12 Extended spectrum beta lactamase (ESBL) resistance; E66.01 Morbid (severe) obesity due to excess calories; N18.30 Chronic kidney disease, stage 3 unspecified; D63.1 Anemia in chronic kidney disease; D63.8 Anemia in other chronic diseases classified elsewhere; L89.152 Pressure ulcer of sacral region, stage 2; I48.91 Unspecified atrial fibrillation; I44.7 Left bundle-branch block, unspecified; E03.9 Hypothyroidism, unspecified; J44.9 Chronic obstructive pulmonary disease, unspecified; E87.6 Hypokalemia; E83.39 Other disorders of phosphorus metabolism; E88.09 Other disorders of plasma-protein metabolism, not elsewhere classified; I27.20 Pulmonary hypertension, unspecified; F03.90 Unspecified dementia, unspecified severity, without behavioral disturbance, psychotic disturbance, mood disturbance, and anxiety; Z66 Do not resuscitate; Z95.0 Presence of cardiac pacemaker; Z88.2 Allergy status to sulfonamides; Z79.01 Long term (current) use of anticoagulants; Z79.890 Hormone replacement therapy; Z79.899 Other long term (current) drug therapy
CPT/HCPCS: 36415; 51702; 70450; 71045; 80048; 80053; 80061; 80164; 81001; 82043; 82533; 82550; 82570; 82947; 83605; 83735; 83880; 84100; 84132; 84156; 84439; 84443; 84484; 84550; 85014; 85018; 85025; 85610; 85730; 86850; 86900; 86901; 86920; 87040; 87077; 87086; 87088; 87186; 87205; 87324; 92610; 93005; 93306; 94640; 96374; 99285; J0692; J0696; J0878; J1720; J1940; J2185; J2270; J2470; J2919; J3010; J3475; J3480; J7040; J7050; J7060; J7613; J7626; J7644; P9016; P9047; Q5106

== ENCOUNTER 2024-05-13 10:23 | Inpatient (IN) | payer OTHER ==
--- OUTSIDE RECORDS SUMMARY | 2024-05-13 10:27 | XMS REPORT | Continuity of Care Document ---
Author Name Unknown Address [address] [facility] Address [address] [facility] [address] [place] [address] Care Team Providers Care Filling Hauler Weaving Name Role Phone [phone] Attending Clinician Unavailable LUDIN PEREZ Attending Clinician Unavailable LINDA BLANCA Attending Clinician Unavailable JAKE BRICENO Attending Clinician Unavailbrenton peralta [id number] Admitting Clinician Unavailable LUDIN PEREZ Admitting Clinician Unavailable LINDA BLANCA Admitting Clinician Unavailable JAKE BRICENO Admitting Clinician UnavailGIANLUCA Watt Admitting Clinician Unavailable JOSE MARIA LINN Admitting Clinician Unavailable Payers Payer Name Policy Type Policy Number Effective Date Expirati on Date Source [facility] [id number] [id number] Problems Condition Name Condition Details Condition Category [...] 300 MG Oral Capsule Yes 300mg 2xD [facility] (LUF/LI V/SA) doxycycline doxycycline Yes 100mg 2xD [facility] (LUF/LI V/SA) Vital Signs Vital Name Observation Time Observation Value Comments Zahira calero Height 2020-07-28 15:55:00 152.4 CM Weight 2020-07-28 15:55:00 136.07 KG Pulse Rate 2020-07-28 17:20:00 79 /min [facility] S [facility] (LUF/RAY/SA) Respiratory Rate 2020-07-28 17:20:00 22 /min [facility] (F/RAY/SA) O2% BldC Oximetry 2020-07-28 17:20:00 95 % [facility] (F/RAY/SA) BP Systolic 2020-07-28 16:16:00 117 mm[Hg] [facility] (LUF/RAY/SA) BP Diastolic 2020-07-28 16:16:00 51 mm[Hg] [facility] (F/RAY/SA) Body Temperature 2020-07-28 15:55:00 97.1 [degF] [facility] (F/RAY/SA) Height 2020-07-28 15:55:00 60 [in_i] [facility] (F/RAY/SA) Weight 2020-07-28 15:55:00 300 [lb_av] [facility] (F/RAY/SA) BMI (Body Mass Index) 2020-07-28 15:55:00 58.8 kg/m2 [facility] (F/RAY/SA) Weight Measured 2017-11-21 11:53:00 375 lbs [facility] (F/RAY/SA) Body Temperature 2017-11-21 11:53:00 98.2 F [facility] (LUF/RAY/SA) Respiratory Rate 2017-11-21 11:53:00 26 /min [facility] (F/RAY/SA) O2% BldC Oximetry 2017-11-21 11:53:00 97 % [facility] (LUF/RAY/SA) BP Systolic 2017-11-21 11:53:00 120 mm[Hg] [facility] (LUF/RAY/SA) BP Diastolic 2017-11-21 11:53:00 81 mm[Hg] [facility] (LUF/RAY/SA) Weight Measured 2017-10-20 17:37:00 326.28 lbs [facility] (LUF/RAY/SA) Body Temperature 2017-10-20 17:35:00 98.9 F [facility] (LUF/RAY/SA) Respiratory Rate 2017-10-20 17:35:00 20 /min [facility] (LUF/RAY/SA) O2% BldC Oximetry 2017-10-20 17:35:00 98 % [facility] (LUF/RAY/SA) BP Systolic 2017-10-20 17:35:00 119 mm[Hg] [facility] (LUF/RAY/SA) BP Diastolic 2017-10-20 17:35:00 49 mm[Hg] [facility] (LUF/RAY/SA) Height 2017-10-20 17:35:00 63 in [facility] (LUF/RAY/SA) BMI (Body Mass Index) 2017-10-20 17:35:00 57.8 [facility] (LUF/RYA/SA) Encounters Start Date/Time End Date/Time Encounter Type Admission Type Attending [facility] Care Facility Care Department Encounter ID Source 2021-09-03 11:17:09 Outpatient 3 [id number] [facility] [id number] [facility] [place] 2021-09-03 11:13:00 Outpatient 3 [id number] [facility] [id number] [facility] [place] 2020-07-28 15:47:00 2020-07-28 19:22:00 CELLULITIS OF RIGHT LOWER LIMB E LUDIN PEREZ [facility] N, [address], [place] [address] [facility] [id number] [facility] (LUF/LI V/SA) 2020-07-28 00:00:00 2020-07-28 00:00:00 Inpatient [facility] [place], [address], [place] [address] [facility] [id number] [facility] (LUF/LI V/SA) 2020-07-28 00:00:00 2020-07-28 00:00:00 Inpatient [facility] [place], [address], [place] [address] [facility] [id number] [facility] (LUF/LI V/SA) 2018-02-28 10:36:00 2018-02-28 23:59:00 ENC THERAPEUTC DRUG LEVL MONITORING O LINDA BLANCA [facility], [address] [facility] [place] [address] [facility] [id number] [facility] (LUF/LI V/SA) 2018-02-22 15:25:00 2018-02-22 23:59:00 ENC THERAPEUTC DRUG LEVL MONITORING LINDA PERSAUD [facility], [address] [facility] [place] [address] [facility] [id number] [facility] (LUF/LI V/SA) 2018-02-16 12:33:00 2018-02-16 23:59:00 ENC THERAPEUTC DRUG LEVL MONITORING O LINDA BLANCA [facility], [address] [facility] [place] [address] [facility] [id number] [facility] (LUF/LI V/SA) 2017-12-16 13:59:00 2017-12-16 23:59:00 PERS HX OTH VENOUS THROMBOSIS &EMBO O JAKE BRICENO [facility], [address] [facility] [place] [address] [facility] [id number] [facility] (LUF/LI V/SA) 2017-12-02 14:16:00 2017-12-02 23:59:00 ENC THERAPEUTC DRUG LEVL MONITORING JAKE HIRSCH [facility], [address] [place] [address] [facility] [id number] [facility] (LUF/LI V/SA) 2017-11-21 11:42:00 2017-11-21 14:50:00 COPD UNSPECIFIE D Doug LACEY GIANLUCA PEDERSON [facility], [address] [place] [address] [address], [place] [address] [facility] [id number] [facility] (LUF/LI V/SA) 2017-10-20 17:27:00 2017-10-20 23:00:00 SPRAIN UNS LIGAMENT LT ANKLE INIT E JOSE MARIA LINN [facility], [address] [place] [address] [address], [place] [address] [facility] [id number] [facility] (LUF/LI V/SA) Results Test Description Test Time Test Comments Results Result Co mments Source [facility] 2019 CEPHEID [id number] 17:52:00* Test Item Value Reference Range Interpretation Comme nts FT (test code = COVID) Negative (qualifier value) The [employer] SARS-CoV -2 reagent is for in vitro use under FDA Emergency Use Authorization only. For questions regarding your test results, please contact the Coronavirus Call Center at [phone]. IN-HOUSE TESTINGSt. Francis Medical CenterXR CHEST AP/PA 1 VIEW 2020-07-28 17:50:44 [facility] (LUF/RAY/SA)Name: SARAVANAN LAN : [id number] Sex: FEXAM: XR CHEST AP/PA 1 VIEWINDICATION: [id number]: DyspneaCOMPARISON: NoneFINDINGS:One frontal imageobtained.MEDICAL DEVICES: NoneLUNGS: Changes [...] 5:44 PMDictated By: CHRISTO BORRERODate: 07/28/2020 17:44[facility] [id number] 17:19:00* Test Item Value Reference Range Interpretation [...] assessment and management of chronic kidney failure. [facility] CenterTROPONIN-I [id number] 17:15:00* Test Item Value Reference Range Interpretation Comme nts Troponin-I (test code = TROP) <0.015 ng/ml 0.000-0.034 N The 99th Percent ile URL is 0.045 ng/mL for the Siemens [place] Troponin I. The Joint Society of Cardiology/[place] College of Cardiology (ESC/ACC) and the National [...] first 24 hours after the clinical event. [facility] Center[facility]-BNP(B-Type Natriuretic Peptide)2020-07-28 17:15:00* Test Item Value Reference Range Interpretation Comme nts Pro-BNP(B-Peptide) (test cod e = PROBNP) 706 pg/ml 0-125 H [facility] WITH AUTO [id number] 16:58:00* Test Item Value Reference Range Interpretation [...] (test code = IG%) 0.2 % 0.0-0.4 [facility] AND [id number] 12:17:00* Test Item Value Reference Range Interpretation Comme nts Protime (test code = PT) 12.0 seconds 9.0-11.9 H INR (test code = INR) 1.2 0.9-1.1 H INR results are intended ONLY to monitor Oral Anticoagulant therapy in stablized patients. The INR Therapeutic Range is 2.0 - 3.0 Patients with a mechanical heart, the INR Range is 2.5 - 3.[address] [facility] AND [id number] 15:53:00* Test Item Value Reference Range Interpretation Comme nts Protime (test code = PT) 32.3 seconds 9.0-11.9 H INR (test code = INR) 3.1 0.9-1.1 H INR results are intended ONLY to monitor Oral Anticoagulant therapy in stablized patients. The INR Therapeutic Range is 2.0 - 3.0 Patients with a mechanical heart, the INR Range is 2.5 - 3.[address] [facility] AND [id number] 15:02:00* Test Item Value Reference Range Interpretation [...] - 3.5 Critical values were called to [facility] by [id number] on 02/16/2018 15:02 PM. Results were read back by [facility]. [facility] AND [id number] 15:35:00* Test Item Value Reference Range Interpretation Comme nts Protime (test code = PT) 14.0 seconds 9.0-11.9 H INR (test code = INR) 1.4 0.9-1.1 H INR results are intended ONLY to monitor Oral Anticoagulant therapy in stablized patients. The INR Therapeutic Range is 2.0 - 3.0 Patients with a mechanical heart, the INR Range is 2.5 - 3.[address] [facility] AND [id number] 16:08:00* Test Item Value Reference Range Interpretation Comme nts Protime (test code = PT) 19.8 seconds 9.0-11.9 H INR (test code = INR) 1.9 0.9-1.1 H INR results are intended ONLY to monitor Oral Anticoagulant therapy in stablized patients. The INR Therapeutic Range is 2.0 - 3.0 Patients with a mechanical heart, the INR Range is 2.5 - 3.5 [facility]alkinPTT2018-04-16 14:31:00* Test Item Value Reference Range Interpretation Comme nts aPTT (test code = PTT) 30.5 seconds 23.0-33.0 [address]LufkinPT AND [id number] 14:31:00* Test Item Value Reference Range Interpretation Comme nts Protime (test code = PT) 14.8 seconds 9.0-11.9 H INR (test code = INR) 1.4 0.9-1.1 H INR results are intended ONLY to monitor Oral Anticoagulant therapy in stablized patients. The INR Therapeutic Range is 2.0 - 3.0 Patients with a mechanical heart, the INR Range is 2.5 - 3.[address]-[id number] 12:53:00* Test Item Value Reference Range Interpretation [...] Rate (eGFR) Reference Intervals Decision Points for years and older and average body mass: >= 60 Does not exclude kidney disease. 30 - 59 Suggests moderate chronic kidney disease and indicates the need for further investigation including assessment of proteinuria and cardiovascular factors. < 30 Usually indicates a need for referral for assessment and management of chronic kidney failure. er [address] [place] [address]-LufkinXR CHEST AP/PA 1 [id number] 12:42:32er 18 Procedure: AP View ChestOrder date: [...] MD 11/21/201712:36 PMDictated By: ENRIQUETA NICHOLASDate: 11/21/2017 12:42[facility] WITH AUTO [id number] 12:24:00* Test Item Value Reference Range Interpretation [...] = IG%) 0.5 % 0.0-0.[address] [place] [address]-[facility], [id number] 06:14:00ER T2 ER T2 needs in and [...] <=1 S Trimeth/Sulfa <=20 S ESBL Negative -[facility] WITH [facility]CROSCOPIC 2017-10-20 22:13:00* Test Item Value Reference Range Interpretation Comme nts Color (test code = UCOLR) YELLOW Clarity (test code = UCLAR) CLEAR Glucose (test code = UGLUC) NEGATIVE NEGATIVE N Bilirubin (test code = UBILI) NEGATIVE NEGATIVE N Ketones (test code = UKET) TRACE NEGATIVE A Specific [place] (test code = USPGR) 1.025 1.005-1.030 A [...] T2 needs in and out cath [facility] AND [id number] 20:16:00* Test Item Value Reference Range Interpretation Comme nts Protime (test code = PT) 15.4 seconds 9.0-11.9 H INR (test code = INR) 1.5 0.9-1.1 H INR results are intended ONLY to monitor Oral Anticoagulant therapy in stablized patients. The INR Therapeutic Range is 2.0 - 3.0 Patients with a mechanical heart, the INR Range is 2.5 - 3.5 [address]PTT2018-03-15 20:16:00* Test Item Value Reference Range Interpretation Comme nts aPTT (test code = PTT) 29.1 seconds 23.0-33.0 [address]CMP2018-03-15 20:07:00* Test Item Value Reference Range Interpretation [...] assessment and management of chronic kidney failure. [address]-fkinROBERTS [place] WITH AUTO [id number] 19:58:00* Test Item Value Reference Range Interpretation [...] code = IG%) 0.3 % 0.0-0.[address]-[id number] 19:58:00* Test Item Value Reference Range Interpretation Comme nts CPK (test code = CPK) 70 U/L 30-[address]-LufkinCT ABDOMEN/PELVIS W/O [id number] 19:57:57er t-2Procedure: CT ABDOMEN/PELVIS W/O CONTRASTOrder Date: [...] Damian Chauhan MD 10/20/20177:51 PMDictated By: DAMIAN CHAUHAN.Date: 10/20/2017 19:57 [facility]/O [id number] 19:48:26er t-2Procedure: CT CHEST W/O CONTRASTOrder Date: [...] PMDictated By: DAMIAN CHAUHANDate: 10/20/2017 19:48[facility] RAPID [id number] 19:48:00* Test Item Value Reference Range Interpretation Comme nts B-PEPTIDE (BIOSITE) (test co de = BIOBNP) 95.2 pg/ml 0.0-100.0 SERIAL INSTRUMENT NUMBER (te st code = SERIAL) [id number] [facility] FallsfkinED RAPID [id number] 19:48:00* Test Item Value Reference Range Interpretation Comme nts CKMB (BIOSITE) (test code = BIOCKMB) 2.1 ng/ml 0.0-2.5 TROPONIN-I (BIOSITE) (test c ode = BIOTROP) <0.050 ng/ml 0.000-0.050 N MYOGLOBIN (BIOSITE) (test co de = BIOMYO) 165.0 ng/ml 0.0-170.0 SERIAL INSTRUMENT NUMBER (te st code = SERIAL) [id number] [facility]-LufkinXR KNEE 1-2 [id number] 19:44:36er t-2Procedure: XR KNEE 1-2 VWSOrder Date: [...] PMDictated By: DAMIAN CHAUHANDate: 10/20/2017 19:44[facility] KNEE 1-2 [id number] 19:43:36er t-2Procedure: XR KNEE 1-2 VWSOrder Date: [...] PMDictated By: AMY CHAUHAN.Date: 10/20/2017 19:43[facility] CERVICAL SPINE W/O [id number] 19:39:25er t-2Procedure: CT CERVICAL SPINE W/O CONTRASTOrder [...] PMDictated By: DAMIAN CHAUHANDate: 10/20/2017 19:39[facility] FOOT COMP MIN 3 [id number] 19:35:45er t-2 Procedure: XR FOOT COMP MIN [...] Damian Chauhan MD 10/20/20177:29 PMDictated By: DAMIAN CHAUHANDate: 10/20/2017 19:35[facility] HEAD W/O CONTRAST 2017-10-20 19:32:45er t-2Procedure: CT [...] 10/20/20177:26 PMDictated By:DAMIAN CHAUHANDate: 10/20/2017 19:32[facility] ANKLE COMP MIN 3 [id number] 19:28:24er t-2Procedure: XR ANKLE COMP MIN 3 [...] PMDictated By: DAMIAN CHAUHAN.Date: 10/20/2017 19:28[facility] AND [id number] 16:47:00* Test Item Value Reference Range Interpretation Comme nts Protime (test code = PT) 10.0 seconds 9.0-11.9 INR (test code = INR) 1.0 0.9-1.1 INR results are intended ONLY to monitor Oral Anticoagulant therapy in stablized patients. The INR Therapeutic Range is 2.0 - 3.0 Patients with a mechanical heart, the INR Range is 2.5 - 3.5 [facility] Notes Date/Time Note Provider Source 2017-10-20 [...] left DC instructions and Rx at bedside. Chaddbid called in to [facility] pharmacy and notified daughter of Rx. Printed and given to patient/caregiver. Patient Teaching Patient education provided [facility] (LU/RAY/SA)
[2024-05-13] MEDS ORDERED: ONDANSETRON 4 MG/2 ML VIAL IV PRN (10:45)
[2024-05-13] MEDS ORDERED: BISACODYL 10 MG RECTAL SUPP PR PRN (10:45)
[2024-05-13] MEDS ORDERED: ACETAMINOPHEN 650MG/RECT SUPP PR PRN (10:45)
[2024-05-13 11:05] VITALS: BMI 47.0
[2024-05-13] MEDS: SCOPOLAMINE HYDROBROMIDE PATCH TD SCH (11:12)
[2024-05-13] MEDS: LORazepam 2 MG/ML VIAL IV PRN (11:55)
[2024-05-13] MEDS: MORPHINE 2 MG/ML SYR IV PRN (12:40)
--- NOTE | 2024-05-13 18:25 | P.HP ---
Certification for Inpatient Patient admitted to: Inpatient With expected LOS: >2 Midnights Patient will require the following post-hospital care: Hospice Practitioner: I am a practitioner with admitting privileges, knowledge of patient current condition, hospital course, and medical plan of care. Services: Services provided to patient in accordance with Admission requirements found in Title 42 Section 412.3 of the Code of Federal Regulations Patient History Date of Service: 05/13/24 Reason for admission: Congestive heart failure/respiratory failure with septic shock History of Present Illness: Patient is a 78-year-old female presented to the hospital with septic shock. Patient with multidrug-resistant organisms along with bacteremia. Patient also with significant volume overload. Patient has severe Alzheimer's dementia and moderate cerebral atrophy. Will patient was volume overloaded which appeared to have some right-sided heart failure and even with diuresing her volume status was not really improving. Patient remained hypotensive throughout her hospitalization. Family decided to proceed with hospice. [facility]. Allergies iodine Allergy (Verified 02/21/24 13:21) Sulfa (Sulfonamide Antibiotics) Allergy (Verified 02/21/24 13:21) tositumomab Allergy (Verified 02/21/24 13:22) Home Medications: Acetaminophen [Tylenol] 650 mg PO Q6HP PRN 02/23/24 Amiodarone HCl [Cordarone*] 100 mg PO DAILY 02/23/24 Budesonide [Pulmicort*] 1 puff IH BID 02/23/24 Calcium Carbonate [Calcium] 500 mg PO DAILY 02/23/24 Carboxymethylcellulose Sodium [Artificial Tears] 1 drop EACH EYE DAILY 02/23/24 Cholecalciferol (Vitamin D3) [Vitamin D3] 1,000 unit PO DAILY 02/23/24 Citalopram Hydrobromide [Celexa] 40 mg PO BEDTIME 02/23/24 Divalproex Sodium [Depakote Sprinkle] 125 mg PO BID 02/23/24 Donepezil HCl [Aricept] 10 mg PO BEDTIME 02/23/24 Famotidine 20 mg PO BID 02/23/24 Formoterol Fumarate 1 dose IH BID 02/23/24 Furosemide [Lasix*] 40 mg PO BID 02/23/24 Ipratropium/Albuterol Sulfate [Combivent Respimat 20-100 Mcg] 4 gm IH QID 02/23/24 Ipratropium/Albuterol Sulfate [Iprat-Albut 0.5-3(2.5) mg/3 ml] 1 dose IH Q4HP PRN 02/23/24 Lactobacillus Acidophilus [Acidophilus Lactobacilli] 2 each PO DAILY 02/23/24 Levothyroxine Sodium 150 mcg PO DAILY 02/23/24 Melatonin [Melatonin*] 6 mg PO BEDTIME 02/23/24 Memantine HCl [Namenda*] 5 mg PO BID 02/23/24 Montelukast [Singulair*] 10 mg PO BEDTIME 02/23/24 Rivaroxaban [Xarelto] 20 mg PO DAILY 02/23/24 risperiDONE [Risperidone] 0.25 mg PO BEDTIME 02/23/24 Mirabegron [Myrbetriq] 25 mg PO DAILY 05/01/24 Sertraline [Zoloft] 50 mg PO DAILY 05/01/24 - Past Medical/Surgical History Diabetic: No -: COPD -: Diastolic CHF/ Pulmonary HTN -: A-fib -: Hypertension with CKD -: CKD (Dr. Hopper/ Dr. Bourgeois) -: Hypothyroidism -: Anemia -: Anxiety -: Dementia -: Morbid obesity with malnutrition -: Anxiety -: Pacemaker Psychosocial/ Personal History: Lives at [place], debility, morbid obesity - Family History Father Family History: Reviewed- Non-Contributory - Social History Smoking Status: Never smoker Review of Systems 10-point ROS is otherwise unremarkable Physical Examination - Vital Signs Temperature: 96.6 F Blood Pressure: 88/42 Pulse: 60 Respirations: 19 Pulse Ox (%): 94 - Physical Exam General: Demented HEENT: Atraumatic, PERRLA, Mucous membr. moist/pink, EOMI, Sclerae nonicteric Neck: Supple, 2+ carotid pulse no bruit, No LAD, Without JVD or thyroid abnormality Respiratory: Diminished Cardiovascular: Regular rate/rhythm, Normal S1 S2, Systolic murmur Gastrointestinal: Normal bowel sounds, Soft and benign, Non-distended, No tenderness Musculoskeletal: No clubbing, Swelling Neurological: Dementia Lymphatics: No axilla or inguinal lymphadenopathy Assessment & Plan - Problems (Diagnosis) (1) Alzheimer's dementia Current Visit: Yes Status: Acute (2) Septic shock Current Visit: Yes Status: Acute (3) SPEEDY (acute kidney injury) Current Visit: No Status: Acute (4) Atrial fibrillation Current Visit: No Status: Acute (5) Congestive heart failure Current Visit: No Status: Acute - Plan Plans to proceed with hospice care; comfort measures. Will discontinue Levophed at this time Discharge Plan: Other Plan to discharge in: Greater than 2 days - Advance Directives Does patient have a Living Will: No Does patient have a Durable POA for Healthcare: No - Code Status/Comfort Care Code Status Assessed: Yes Code Status: Do Not Attempt Resuscitat Comfort Measures: Hospice Care Critical Care: No Time Spent Managing PTS Care (In Minutes): 45
[2024-05-14 04:20] VITALS: O2SAT 98
[2024-05-14 07:32] VITALS: BP 65/39; TEMP 96.5
== END 2024-05-14 18:40 | disposition expired | DRG 951 ==
LOC: 3RD-ICU 10:23
PROVIDERS: ADMIT Emergency Medicine; ATTEND Emergency Medicine
DX: Z51.5 Encounter for palliative care (principal)
CPT/HCPCS: J2270